=== PATIENT | female | born 1945 | race Caucasian/White ===

== ENCOUNTER → 2019-01-17 09:46 | Outpatient (CLI) | payer MEDICARE, SELFPAY ==
--- NOTE | 2019-01-17 11:38 | NURSING ---
Patient had reached out to this nurse for assistance in getting ostomy supplies ordered. Pt unable to explain a lot of her history. states she was just discharged from [facility] approx a week and a half ago. patient has a new ileostomy for s/p some sort of debulking surgery for ovarian cancer. patient was not sent home with a prescription for supplies or any extra supplies. [facility]'s home health has been seeing patient and were unsure of that supplies to order. Had called this nurse for recommendations. let the home health nurse know that the patient's stoma and peristomal skin will need assessed prior to deciding on the appliances. Pt to room. removed ostomy appliance. peristomal skin is intact, just slightly pink. stoma is well budded, dark pink, and moist. measures approx 1 in diameter. stoma does sit in a crease of the abdomen and is near the midline surgical incision that still has james in place. Pt states she is scheduled to see the surgeon next week and will have the james removed at that time. patient is very thin with a few small abdominal creases. would recommend a flat one piece appliance at this time. patient states she wants something as simple as possible. since patient is just 2 weeks post op, would not recommend a pre cut appliance at this time. can possibly order this for the patient after 8 weeks post. explained this to the patient and . recommended [employer] appliance #[id number]. This is a one piece flat appliance with Lock n' Roll closure. Patient very appreciative of recommendations and care. script written out for home health. will reach out to them to see if they prefer this nurse calls [facility] to order. will need a signing physician. Pt states her family doctor (Dr Rhodes in [place]) would most likely sign for the supplies. Pt aware to call for further needs.
== END ==
PROVIDERS: Family Provider Family Medicine; PCP Family Medicine
DX: Z43.2 Encounter for attention to ileostomy (principal)
CPT/HCPCS: 99211; G0463

== ENCOUNTER 2019-02-04 06:55 | Inpatient (IN) | payer MEDICARE, SELFPAY ==
[2019-01-30 09:13] VITALS: BMI 18.6
[2019-02-04] VITALS (9 sets, daily range): BP systolic 91–110; BP diastolic 59–73; PULSE 77–101; RESP 16–20; TEMP 36.4–36.6; O2SAT 99–100; BMI 17.4; BMI 16.8
--- NOTE | 2019-02-04 06:56 | EKG12_ITS ---
Test Reason : GENERAL ILLNESS Blood Pressure : / mmHG Vent. Rate : 101 BPM Atrial Rate : 101 BPM P-R Int : 130 ms QRS Dur : 080 ms QT Int : 354 ms P-R-T Axes : 077 081 080 degrees QTc Int : 459 ms Sinus tachycardia Early repolarization Otherwise normal ECG Confirmed by MIKALA DUNBAR ([id number]), senior technical editor LILI ONEAL ([id number]) on 02/08/2019 10:58:10 AM Referred By: Confirmed By:MIKALA DUNBAR
--- NOTE | 2019-02-04 07:05 | ED.DCSUM_ITS ---
History of Present Illness Chief Complaint: Abd Pain Detail of Chief Complaint: Per patient and generalized weakness Informant: Patient, Significant Other Onset: Weeks Context: Sudden Onset Timing: Continuous Quality: Generalized weakness Location: Malaise, no energy, no appetite and weight loss Current Severity: Moderate Maximum Severity: Moderate Worsened by: Surgery beginning of December Relieved by: Nothing Associated Symptoms: Generalized weakness with weight loss 115 to 94 pounds Narrative: Patient is an elderly woman who underwent surgery at [facility]. Was referred to oncology at the [facility]. nor patient are able to elaborate why. states tumors were precancerous. Patient complains of generalized weakness, malaise, weight loss. She reports no appetite. She has had abdominal pain since surgery. Patient had surgery first week of December. She denies fever, chills or night sweats. She denies ocular, visual auditory symptoms. She does report thirst and dry mouth. She does report left-sided chest pain. She denies rash. There is no history of trauma. Patient denies shortness of breath, dyspnea on exertion, orthopnea or PND. Abdominal pain is generalized. Unable to localize area. Ileostomy noted. She reports no decrease in output. She has not noted blood or black material in the ileostomy bag. She denies dysuria, frequency, urgency or hematuria. - Past Medical History (1) Colon cancer Status: Acute (2) Omental metastasis Status: Acute (3) Ovarian metastasis Status: Acute (4) Peritoneal metastases Status: Acute (5) Anemia Status: Chronic Past Medical History - Allergies and Home Meds Allergies/Adverse Reactions: Allergies Penicillins Adverse Reaction (Intermediate, Verified 02/04/19 06:59) Rash ITCHY Primary Care Physician: Zarina Rhodes [Primary Care Provider] - Prior records reviewed: Yes Surgical History: - - Colostomy with Carmen pouch and ileostomy first week of December Lives: Spouse/ Significant Other Smoking Status: Never smoker Alcohol: None Review of Systems General: Reports: Malaise, Weight loss. Denies: Chills, Fever, Subjective, Sweats, - Eyes: Denies: Visual changes - bilaterally, Diplopia ENT: Denies: Rhinorrhea, Sore throat Cardiovascular: Denies: Chest pain, Palpitations Respiratory: Denies: Dyspnea, Cough, Dyspnea on exertion Gastrointestinal: Reports: Abdominal pain. Denies: Nausea, Vomiting, Diarrhea, Constipation, Melena, Hematochezia, -, - Genitourinary: Denies: Dysuria, Hematuria, Frequency Musculoskeletal: Denies: Back pain, Extremity Pain Skin: Denies: Rash, Wounds Neurological: Reports: Weakness. Denies: Headache, Parasthesia, Numbness, -, - Endocrine: Denies: Polyuria, Polydipsia Hematologic: Denies: Easy bruising, Easy bleeding Physical Exam Vital Signs/Narrative: Vital Signs Temp Pulse Resp BP Pulse Ox 02/04/19 06:56 97.5 F L 101 H 20 H 107/73 99 Inital Vital Signs reviewed: Yes General: Well developed, Cachectic, No Acute Distress Head: Normocephalic, Atraumatic Eyes: Perrl, EOMI. Negative for: Pale conjunctiva, Scleral icterus ENT: No rhinorrhea, Dry mucous membranes Neck: Supple, Nontender, No lymphadenopathy, No JVD, - Cardiovascular: Regular rhythm, No murmurs, Normal S1, Normal S2, Tachycardia Respiratory: No distress, CTA bilaterally, Chest tenderness - Anterior left chest. No rash noted to suggest herpes varicella-zoster. Abdomen: Soft, Nondistended, Normal bowel sounds, No masses, Tender. Negative for: Guarding, Rebound tenderness Back: Nontender, Normal Inspection. Negative for: CVA tenderness Extremities: Nontender, No edema Skin: No rash, Pallor. Negative for: Cyanosis, Jaundice Neurological: Alert, Oriented x3, Cranial nerves II-XII grossly intact, Normal Strength, Normal Sensation Psychological: Depressed Diagnostic/Tx/Re-eval Laboratory Results 02/04/19 02/04/19 07:05 07:05 WBC 9.7 RBC 5.84 H Hgb 17.1 H Hct 48.9 H MCV 83.7 MCH 29.3 MCHC 35.0 RDW 16.9 H RDW Differential 51.5 H Plt Count 451 H MPV 10.8 Immature Gran % (Auto) 0.400 Neut % (Auto) 82.0 H Lymph % (Auto) 11.2 L [place] % (Auto) 6.1 Eos % (Auto) 0.2 Baso % (Auto) 0.1 Absolute Neuts (auto) 7.9 H Absolute Lymphs (auto) 1.08 Total Counted Not Reportable Sodium 124 L Potassium 4.5 Chloride 84 L Carbon Dioxide 23.0 Anion Gap 17 H BUN 109 H* Creatinine 1.62 H Estim Creat Clear Calc 22.48 Est GFR (MDRD) Af Amer 40 L Est GFR (MDRD) Non-Af 33 L BUN/Creatinine Ratio 67.3 H Glucose 222 H Calcium 9.6 - Rhythm Strip Rhythm Strip: Sinus Rhythm Rate: 103 Ectopy: None - EKG Initial EKG Interpretation: Sinus Tachycardia - Ventricular rate 101. MA interval, cures duration and QT interval are normal. [place] normal. There is evidence of early repolarization. - Medical Decision Making Prehospital EKG revealed artifact and difficult to determine if there is or is not ST elevation. Therefore, an EKG was ordered. Patient appears pale will obtain CBC to assess for anemia as well as white count and differential. Because of poor appetite with stomach and weight loss will obtain electric panel. Also will review prior records since prior documented history is significant for cancer which patient and denied. Patient's BUN has increased significantly since January 30. Ratio is greater than 50-1. Hemoglobin has increased from 15 1 to greater than 17 which would suggest the elevated BUN/creatinine ratio is secondary to prerenal condition and not GI blood loss. Oncology note was reviewed and patient with diagnosis of colon cancer who underwent debulking procedure and ileocolectomy at [facility]. Patient sodium has decreased to 124. Since patient is clinically dehydrated with hyponatremia need to evaluate for SIADH. Additional blood work was ordered and will page hospitalist for admission. ED Disposition - Plan for ED Patient: Disposition: Acute Care Hospital [facility] Diagnosis: Prerenal azotemia, ESRD (end stage renal disease), Severe dehydration, History of colon cancer, no staging, Hyponatremia with decreased serum osmolality Referrals: Zarina Rhodes [Primary Care Provider] -
[2019-02-04] MEDS: Morphine 4 MG/ML Syringe IV (07:06)
[2019-02-04] MEDS: 0.9% Normal Saline 1,000 ML 1000 ML IV (07:06)
[2019-02-04] MEDS: Ondansetron 4 MG/2 ML Vial IV (07:06)
[2019-02-04 07:14] LABS: Absolute Lymphocyte Count 1.08 X10^3/ul (0.83-4.51); Absolute Neutrophil Count 7.9 X10^3/uL (2.0-7.7); Basophil# 0.01 X10^3/uL; Basophil% 0.1 % (0-1); Eosinophil# 0.02 X10^3/uL; Eosinophils% 0.2 % (0-5); Hematocrit 48.9 % (37-47); Hemoglobin 17.1 g/dl (12.0-15.0); Lymphocyte # 1.08 X10^3/ul (4.0); Lymphocyte % 11.2 % (19-41); Mean Corpuscular Hgb 29.3 pg (27.0-32.0); Mean Corpuscular Volume 83.7 fL (81-99); Mean Platelet Vol. 10.8 fl (6.2-12.0); Monocyte# 0.59 X10^3/uL; Monocyte% 6.1 % (0-10); Neutrophil # 7.94 X10^3/uL (2.7-7.7); Platelet Count 451 K/mm3 (150-450); RBC Distribution Width CV 16.9 % (11.6-14.6); RBC Distribution Width SD 51.5 fl (35.1-43.9); Red Blood Count 5.84 M/mm3 (4.2-5.4); White Blood Count 9.7 K/mm3 (4.4-11.0)
[2019-02-04 07:15] LABS: POSITIVE COUNT NO; POSITIVE DIFFERENTIAL NO; POSITIVE MORPHOLOGY NO
[2019-02-04 07:27] LABS: Anion Gap 17 (5-15); BUN 109 mg/dL (7-18); BUN/Creat Ratio 67.3 RATIO (10-20); Calcium,Total 9.6 mg/dL (8.5-10.1); Chloride 84 mmol/L (98-107); Creatinine, Serum 1.62 mg/dL (0.55-1.02); EST Glomerular Filtration Rate 33 mL/min (>60); Est Glom Filt Rate - Afr Amer 40 mL/min (>60); Estimated Creatinine Clearance 22.48 ml/min; Glucose 222 mg/dL (74-106); Potassium 4.5 mmol/L (3.5-5.1); Sodium Level 124 mmol/L (136-145)
--- NOTE | 2019-02-04 09:30 | HP.PCM_ITS ---
History of Present Illness Date of Admission: 02/04/19 Chief Complaint: WEAKNESS The patient is a 73 year old F with a past medical history significant for recently diagnosed pelvic mass for which she had debulking surgery with ileo- colectomy and primary bowel anastomosis as well as diverting loop ileostomy and bilateral salpingo-oophorectomy on January 04, [address] [facility] in [place]. 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 She was subsequently discharged home and followed up with oncology on 01/30/2019. Per oncology note, she was to follow-up again for reassessment of her functional and nutritional status and if there was improvement consider her for systemic palliative chemotherapy as cancer is incurable. Patient has been feeling very weak at home and this gradually progressed until today when her was not even able to help her get out of bed. She has had associated decreased oral intake and severe nausea. She says she felt dehydrated because she had not been drinking and eating well. She therefore came into the ED today for further evaluation. On admission, sodium was 124 and creatinine was 1.62 with anion gap of 17, BUN was also elevated at 109. CBC showed hemoglobin of 17.1 and platelets of 451 with white cell count of 9.7. Initially she was tachycardic but this resolved with IV fluid administration. She has been admitted to be managed for severe debility due to metastatic colon cancer, dehydration, hyponatremia likely hypovolemic hypotonic hyponatremia from decreased intake and MARJORIE. [] Past Medical History Past Medical History (Chronic Problems): Chronic Problems (Last Reviewed 01/30/19 @ 09:08 by Tamra Beltran) Anemia (Chronic) Medical History: Medical History (Last Reviewed 01/30/19 @ 09:08 by Tamra Beltran) Colon cancer C18.9 Depression F32.9 Ileostomy present Z93.2 Irritable bowel syndrome (IBS) K58.9 Allergies Penicillins Adverse Reaction (Intermediate, Verified 02/04/19 06:59) Rash ITCHY Home Medications: Ambulatory Orders Medication Instructions Recorded Ibuprofen [Wal-Profen] 400 mg PO Q6H PRN PRN 01/30/19 Ondansetron [Zofran] 8 mg PO Q8H PRN PRN 20 Days #60 01/30/19 tablet Surgical History: Surgical History (Last Reviewed 01/30/19 @ 09:08 by Tamra Beltran) History of tonsillectomy Z90.89 Status post ileostomy Z93.2 01-04-19 exploratory laparotomy, tumor debulking, ileocecetomy with resection of large mass, primary bowel anastomosis, mobilization of hepatic flexure, bilateral salpingo-oophorectomy, diverting loop ileostomy Surgical History: - - Colostomy with Carmen pouch and ileostomy first week of December Psychiatric History: No pertinent psych hx [employer] History: No pertinent [employer] history Lives: Spouse/ Significant Other Smoking Status: Never smoker Alcohol: None - *Family History Maternal Family History: Family History (Last Updated 01/30/19 @ 09:52 by Tamra Beltran) Other No pertinent family history History Items: No pertinent history Paternal Family History: Family History (Last Updated 01/30/19 @ 09:52 by Tamra Beltran) Other No pertinent family history History Items: No pertinent history Review of Systems Constitutional: Reports: Anorexia, Malaise, Weakness, Weight Change, Fatigue. Denies: Chills, Fever, Night Sweats Eyes: Denies: Blurred vision HEENT: Denies: Head Aches, Sinus Congestion, Sinus Drainage Cardiovascular: Denies: Chest Pain, Palpitations Respiratory: Denies: Cough, Shortness of breath at rest, Sputum production Gastrointestinal: Reports: Nausea, Vomiting, - - has ileostomy. Denies: Abdominal Pain, Constipation, Diarrhea Genitourinary: Denies: Dysuria Musculoskeletal: Denies: Joint Pain, Joint Tenderness Skin: Denies: Rash, Wounds Neurological: Denies: Numbness, Tingling, Focal weakness Psychiatric: Denies: Anxiety, Depression, Homicidal Ideations, Suicidal Ideations Hematologic/ Lymphatic: Denies: Easy Bruising, Easy Bleeding VTE Information - Inpt Only VTE Present on Admission: No VTE Pharm Prophylaxis ordered?: Yes Patient Problems: Active and Suspected Problems (Last Reviewed 01/30/19 @ 09:08 by Tamra Beltran) Prerenal azotemia (Acute) ESRD (end stage renal disease) (Acute) Severe dehydration (Acute) History of colon cancer, no staging (Acute) Hyponatremia with decreased serum osmolality (Acute) - Physical Exam General: Alert, Oriented x3, Cooperative, No apparent distress HEENT: Atraumatic, PERRLA, EOMI, Normocephalic Oral: Moist Mucosa Neck: Supple, No JVD, Negative Carotid Bruits Lungs: Clear to auscultation, Normal air movement, No rhonchi, No wheeze, No rales Cardiovascular: Regular rate, Regular Rhythm, Normal S1, Normal S2, No murmurs Abdomen: Bowel Sounds Present, Soft, Non Tender, Non-Distended, No Hepato- splenomegaly Extremities: No clubbing, No cyanosis, No edema, Capillary Refill Less than 3 Seconds Skin: No rashes, No breakdown Musculoskeletal: No Tenderness to Palpation of Joints or Extremities Lymphatic: No Cervical, Supraclavicular, or Inguinal Adenopathy Neurological: Cranial nerves II-XII grossly intact, Neuro grossly intact, Motor Exam 5/5 strength throughout Psych/Mental Status: Normal Affect, Appropriate, Alert and oriented to time, place, person, mood and affect Vital Signs Temp Pulse Resp BP Pulse Ox 97.5 F L 101 H 20 H 107/73 99 02/04/19 06:56 02/04/19 06:56 02/04/19 06:56 02/04/19 06:56 02/04/19 06:56 Oxygen Flow Rate (L/min) 2 Oxygen Delivery Method Nasal Cannula Weight: 98 lb 8.746 oz Body Mass Index (BMI) 17.4 Laboratory Tests Past 24 Hrs 02/04/19 02/04/19 02/04/19 07:05 07:05 08:20 WBC 9.7 RBC 5.84 H Hgb 17.1 H Hct 48.9 H MCV 83.7 MCH 29.3 MCHC 35.0 RDW 16.9 H RDW Differential 51.5 H Plt Count 451 H MPV 10.8 Immature Gran % (Auto) 0.400 Neut % (Auto) 82.0 H Lymph % (Auto) 11.2 L [place] % (Auto) 6.1 Eos % (Auto) 0.2 Baso % (Auto) 0.1 Absolute Neuts (auto) 7.9 H Absolute Lymphs (auto) 1.08 Total Counted Not Reportable Sodium 124 L Potassium 4.5 Chloride 84 L Carbon Dioxide 23.0 Anion Gap 17 H BUN 109 H* Creatinine 1.62 H Estim Creat Clear Calc 22.48 Est GFR (MDRD) Af Amer 40 L Est GFR (MDRD) Non-Af 33 L BUN/Creatinine Ratio 67.3 H Glucose 222 H Calcium 9.6 Cortisol Pending Assessment/Plan All Active Problems (Last Reviewed 01/30/19 @ 09:08 by Tamra Beltran) Prerenal azotemia (Acute) ESRD (end stage renal disease) (Acute) Severe dehydration (Acute) History of colon cancer, no staging (Acute) Hyponatremia with decreased serum osmolality (Acute) Colon cancer (Acute) Peritoneal metastases (Acute) Ovarian metastasis (Acute) Omental metastasis (Acute) 73 y/o female admitted with a complaint of nausea and vomiting as well as severe weakness 1. Acute hyponatremia, likely acute hypovolemic hypotonic hyponatremia * likely from dehydration and decreased intake * Na is 124 * check serum osmolality * give IV normal saline at 150cc/hr, with goal of correcting sodium by 6-6mmol/L within the next 24hours * 2. MARJORIE on CKD * CR is 1.62, with BUN of 109 * BUn/Cr ratio is 67.3, indicating this is likely a pre-renal cause from dehydration * hydrate with IVF and monitor; if kidney function doesnt improve, will consider more extensive workup * 3. Severe debility due to metastatic colon cancer * patient very frail and debilitated * consult PT/OT * fall precautions * 4. 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 * per oncology notes, has very poor perfomance status; to be reassessed to for palliative chemotherapy once her nutrition status improves * will consult oncology * 5. Severe malnutrition due to metastatic cancer * BMI is ~ 16, with patient weighing only 94 pounds * give Ensure supplements TID * consult nutrition * DVT prophylaxis: lovenox Code status: Full code * Patient counseled extensively about different types of CODE STATUS including full code, DNR CCA and DNR CCA. Patient elects to be full code. Total [id number] time 16 * minutes. Code Visit Inpatient E&M: 77618 Init Hosp L3 Procedures: 62295 Advncd Care Plan 30 Min
[2019-02-04] MEDS: 0.9% Normal Saline 1,000 ML 150 ML IV ×2 (09:47→17:33)
--- NOTE | 2019-02-04 09:50 | NURSING ---
Pt is known to this nurse. pt had come in as an outpatient to get assistance with ostomy supplies at home. Pt states she is doing well with the supplies that were ordered. appliance is intact. states was just changed on Monday. to bring in patient's supplies since she prefers them over what we have here. incision is healed to mid abdomen with a few small scabbed areas. will monitor for needs.
[2019-02-04] MEDS: Enoxaparin 30 MG/0.3 ML Syringe SC (10:10)
[2019-02-04] MEDS: Ensure Clear 120 ML Liquid PO ×2 (11:11→17:32)
[2019-02-04 12:56] LABS: AST(SGOT) 56 U/L (15-37); Alanine Aminotransfer ALT/SGPT 117 U/L (13-56); Albumin, Serum 4.1 g/dL (3.2-5.0); Alkaline Phosphatase 139 U/L (45-117); Bilirubin, Direct 0.31 mg/dL (0.00-0.30); Protein, Total 8.1 g/dL (6.4-8.2)
--- NOTE | 2019-02-04 13:07 | US_ITS ---
STUDY: ABDOMINAL ULTRASOUND - RIGHT UPPER QUADRANT REASON FOR VISIT: Female, 73 years old. Jaundice history of colon cancer TECHNIQUE: Ultrasound evaluation of the right upper quadrant was performed with real-time and static khan-scale imaging. TECHNICAL QUALITY: Adequate. COMPARISON: None. FINDINGS: Liver: The liver measures 13 cm. There is normal echogenicity of the liver. The bile ducts are within normal limits. There is hepatic color flow. The direction of portal flow is hepatopetal. There is a cyst in the left hepatic lobe measuring 1.0 cm. There is a cyst measuring 7.1 x 7 x 7.2 cm which appears to have fairly well-circumscribed borders. Gallbladder: The patient is status post cholecystectomy. Common Bile Duct (C.B.D.): The common bile duct visualized. Pancreas: Normal size of the head, body of the pancreas. There is normal echogenicity of the pancreas. There is no demonstrated pancreatic mass or cyst. Tail the pancreas is not well-visualized. Right Kidney: Normal size of the right kidney. The right kidney measures 10.1 x 4.1 x 4.0 cm. Normal renal cortex. The right cortex measures 1.0 cm. There is no demonstrated renal mass or cyst. There is no right hydronephrosis. There is a calcification in the right kidney measuring 5.8 mm. There is no visualized hydronephrosis. US/Liver IMPRESSION: Indeterminate well-circumscribed thin-walled appearing hepatic cyst the largest of which measures 7.2 x 7.8 x 7.2 cm. Recommend follow-up dedicated CT scan of the abdomen and pelvis when appropriate with a liver mass protocol. Nonobstructing right renal stone or stones. No evidence of hydronephrosis. Limited study the common duct is not well-visualized on this study. The gallbladder is been removed. Electronically Signed: Susan Botello MD at 17:26 EDT Tel , Service support ,
--- NOTE | 2019-02-04 15:37 | CON.PCM_ITS ---
- Problem List (1) Colon cancer Status: Acute Comment: Stage IV (2) Peritoneal metastases Status: Acute (3) Ovarian metastasis Status: Acute (4) Omental metastasis Status: Acute (5) MARJORIE (acute kidney injury) Status: Acute (6) Weight loss Status: Acute (7) Pressure sore Status: Acute (8) Jaundice Status: Acute (9) Severe dehydration Status: Acute (10) Hyponatremia with decreased serum osmolality Status: Acute Consult Referring Physician: Hospitalist service Consult Results: Metastatic colon cancer Subjective Date of Service:: 02/04/19 Chief Complaint: ABD PAIN, WT LOSS History of Present Illness: Patient is a 73-year-old female who had intermittent bouts of abdominal pain for almost 1 year before she presented to an [place] emergency room on December 31, 2018 with a palpable abdominal mass. She was transferred to [facility] where a CT scan of the abdomen revealed a complex pelvic mass initially thought to be ovarian. CT scan of the abdomen did not report liver metastases and a CT of the chest did not report lung metastases. She had an elevated CEA. On January 04, 2019 she underwent an exploratory laparotomy with tumor debulking, ileo-colectomy with resection of a large mass, primary bowel anastomosis, diverting loop ileostomy and bilateral salpingo-oophorectomy by Dr. Macias. 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 Macroscopic tumor perforation was present, histologic grade 3 with tumor transmurally invasive through muscle and up to serosa, margins were free, lymphovascular invasion was focally present, no metastases were identified and 23 dissected lymph nodes. MSI/MMR are pending. The course of that 1 year she lost 30 pounds of weight. She was then discharged home, reports she did well in the first 2 to 3 weeks but then had a steady downhill decline with increasing weakness, anorexia, nausea, abdominal pain, she became increasingly and active spending most of her day in bed and developed a pressure sore over the sacrum. She was seen by me on January 30, 2019, was too ill to start any active anticancer treatment and multiple referrals were made that were scheduled for this week and attempt to improve her functional status to allow safe administration of palliative chemotherapy (refer to palliative medicine, wound care service, and nutrition service). Over the weekend she continued to decline and this morning her was not able to help her out of bed and she was brought to the emergency room. Past Medical History: Chronic Problems (Last Reviewed 01/30/19 @ 09:08 by Tamra Beltran) Anemia (Chronic) Past Medical/Surgical History: Past Medical History - Most Recent Inpatient Visit Past Medical History Start: 02/04/19 09:08 Text: Status: Complete Freq: ONCE Protocol: Document 02/04/19 09:08 JATIN (Rec: 02/04/19 09:59 JATIN [id number]) BMI Required to complete PMH What is Patient's BMI 16.8 Past Medical History Unable History Recalled No Query Text:Pt Unable/Family Not Present Neurologic Medical History Hx Stroke/TIA No Hx Dementia/Alzheimer's No Hx Parkinson's Disease No Hx Seizures No Hx Multiple Sclerosis No Hx Migraines Yes: BEFORE MENOPAUSE Cardiac Medical History VTE Present on Admission No Hx of Deep Vein Thrombosis/VTE/PE No Hx Hypertension No Hx Chest Pain/Angina No Hx Heart Attack No Hx Cardiac Surgery/Stents/Etc. No Hx Heart Failure No Hx Pacemaker/AICD No Hx Irregular Heartbeat and/or Afib No Hx Anticoagulant Therapy No Query Text:(Coumadin, Aspirin, Plavix, Xarelto, etc.) Hx Pain in Legs when Walking/Leg Cramps No Respiratory Medical History Hx COPD No Hx Emphysema No Hx Smoking No Smoking Status Never smoker Hx Smoking Exposure No Hx Tobacco Use in last 12 months No Hx of Pipe Smoking No Hx of Cigar Smoking No Hx Sleep Apnea No CPAP No Do you snore loudly (louder than talking No or can be heard through closed doors)? Do you often feel tired/ fatigued/ No sleepy during daytime? Has anyone observed you stop breathing No during sleep? STOP Results Negative GI Medical History Hx Ulcer No Hx Hepatitis No Hx Cirrhosis No Hx GI Bleed No Hx Unplanned Weight Loss No Genitourinary Medical History Indwelling Catheter in Place on Arrival/ No Admission Hx Renal Disease No Hx Dialysis No Musculoskeletal History Hx Arthritis No Hx Rheumatoid Arthritis No Endocrine Medical History Hx Diabetes No Hx Thyroid Disease No Hematologic Medical History Hx of Blood Transfusion No Hx of Transfusion in last 3 Months No Ever experience any problems with No transfusion(s)? Hx of Preganancy in last 3 Months N/A Nurse Filling Out Transfusion & JMAIBACH Questions: Date: 02/04/19 Time: 09:58 Psycho/Social Medical History Hx Depression No Hx Anxiety No Hx Behavior Disorder No Hx Alcohol Use No Hx Substance Use No Other Medical History Hx Blood Disorders No Hx Anemia No Hx Cancer No Hx Drug Resistant Organism No Wound/Pressure Injury Present on Arrival Yes: HEALING ABOVE COCCYX /Admission Query Text:If yes, chart assessment in Shift/Clinical Findings Central Line/PICC/VAD Present on Arrival No /Admission Antibiotics within last 7 days? No Methicillin Resistant Staphylococcus aureus Screening Active MRSA No Risk for Readmission Patient is eligible for Call Back N Past Medical History (Last Reviewed 01/30/19 @ 09:08 by Tamra Beltran) Colon cancer (Acute) Depression (Acute) Ileostomy present (Acute) Irritable bowel syndrome (IBS) (Acute) Past Surgical History (Last Reviewed 01/30/19 @ 09:08 by Tamra Beltran) History of tonsillectomy (Acute) Status post ileostomy (Acute) Maternal Family History: Family History (Last Updated 01/30/19 @ 09:52 by Tamra Beltran) Other No pertinent family history Family History: No pertinent history Paternal Family History: Family History (Last Updated 01/30/19 @ 09:52 by Tamra Beltran) Other No pertinent family history Family History: No pertinent history - Social History Lives: Spouse/ Significant Other Smoking Status: Never smoker Alcohol: None Allergies/Adverse Reactions: Allergy/AdvReac Type Severity Reaction Status Date / Time Penicillins AdvReac Intermediate Rash Verified 02/04/19 06:59 Review of Systems Constitutional:: Reports: Weakness, Fatigue, Weight loss, Appetite change, Hot or cold intolerance. Denies: Fever, Sweats, Chills Cardiovascular:: Denies: Chest pain, Palpitations, Dyspnea on exertion, Orthopnea, PND, Shortness of breath Respiratory: Denies: Cough, Hemoptysis, Shortness of Breath, Wheezing Gastrointestinal:: Reports: Abdominal pain - Discomfort, Nausea, Vomiting, Constipation, - - Has an ileostomy that drains. Denies: Diarrhea, Hematochezia Genitourinary: Denies: Dysuria, Hematuria, 15, Flank pain Musculoskeletal:: Denies: Back pain, Myalgia, Arthralgia Skin: Reports: Wounds - Of her tailbone. Denies: Rash, Skin Changes Neurological:: Denies: Headache, Dizziness, Visual changes, Tinnitus, Hearing loss Psychiatric: Denies: Anxiety, Depression, Homicidal Ideations, Suicidal Ideations Vital Signs Height 5 ft 3 in Weight: 42.9 kg Weight in Pounds 94.6 lbs Pulse Ox 100 Temperature 97.9 F Pulse Rate 82 Respiratory Rate 16 Blood Pressure 108/64 Blood Pressure Position Semi-Fowlers - Physical Exam General: Alert, Oriented x3, - - Cachectic, ECOG 4 HEENT: Atraumatic, PERRLA, EOMI, Normocephalic Oropharynx:: Dry mucosa Neck:: Supple, Trachea midline. Negative for: JVD, bilateral Cardiac:: Regular rate, Regular rhythm, Normal S1, Normal S2. Negative for: Murmur Lungs: Clear to auscultation, Excusion symmetrical. Negative for: Rhonchi, Wheezes Abdomen:: Soft, Non-tender, - - Ileostomy, no peritonism. Negative for: Hepatosplenomegaly Extremities:: Negative for: Cyanosis, Edema Neurological: Neuro grossly intact Skin:: - - A sacral pressure sore noted January 30 is now covered with dressing. Negative for: Rash, Petechiae, Ecchymosis Psychiatric:: Appropriate affect, Euthymic Lymphatics:: Negative for: Cervical lymphadenopathy, Supraclavicular lymphadenopathy Laboratory Data: Laboratory Tests 02/04/19 02/04/19 02/04/19 Range/Units 08:20 07:05 07:05 WBC (4.4-11.0) K/mm3 RBC (4.2-5.4) M/mm3 Hgb (12.0-15.0) g/dl Hct (37-47) % MCV (81-99) fL MCH (27.0-32.0) pg MCHC (32-36) g/gl RDW (11.6-14.6) % RDW Differential (35.1-43.9) fl Plt Count (150-450) K/mm3 MPV (6.2-12.0) fl Immature Gran % (Auto) (0.0-0.9) % Neut % (Auto) (47-70) % Lymph % (Auto) (19-41) % Burnett % (Auto) (0-10) % Eos % (Auto) (0-5) % Baso % (Auto) (0-1) % Absolute Neuts (auto) (2.0-7.7) X10^3/uL Absolute Lymphs (auto) (0.83-4.51) X10^3/ul Total Counted Sodium 124 L (136-145) mmol/L Potassium 4.5 (3.5-5.1) mmol/L Chloride 84 L (98-107) mmol/L Carbon Dioxide 23.0 (21.0-32.0) mmol/L Anion Gap 17 H (5-15) BUN 109 H* (7-18) mg/dL Creatinine 1.62 H (0.55-1.02) mg/dL Estim Creat Clear Calc 22.48 ml/min Est GFR (MDRD) Af Amer 40 L (>60) mL/min Est GFR (MDRD) Non-Af 33 L (>60) mL/min BUN/Creatinine Ratio 67.3 H (10-20) RATIO Glucose 222 H (74-106) mg/dL Calcium 9.6 (8.5-10.1) mg/dL Total Bilirubin 2.20 H (0.20-1.00) mg/dL Direct Bilirubin 0.31 H (0.00-0.30) mg/dL AST 56 H (15-37) U/L ALT 117 H (13-56) U/L Alkaline Phosphatase 139 H (45-117) U/L Total Protein 8.1 (6.4-8.2) g/dL Albumin 4.1 (3.2-5.0) g/dL Globulin 4.0 (2.2-4.2) g/dL Cortisol 70.70 H (3.09-22.40) ug/dL 02/04/19 Range/Units 07:05 WBC 9.7 (4.4-11.0) K/mm3 RBC 5.84 H (4.2-5.4) M/mm3 Hgb 17.1 H (12.0-15.0) g/dl Hct 48.9 H (37-47) % MCV 83.7 (81-99) fL MCH 29.3 (27.0-32.0) pg MCHC 35.0 (32-36) g/gl RDW 16.9 H (11.6-14.6) % RDW Differential 51.5 H (35.1-43.9) fl Plt Count 451 H (150-450) K/mm3 MPV 10.8 (6.2-12.0) fl Immature Gran % (Auto) 0.400 (0.0-0.9) % Neut % (Auto) 82.0 H (47-70) % Lymph % (Auto) 11.2 L (19-41) % Burnett % (Auto) 6.1 (0-10) % Eos % (Auto) 0.2 (0-5) % Baso % (Auto) 0.1 (0-1) % Absolute Neuts (auto) 7.9 H (2.0-7.7) X10^3/uL Absolute Lymphs (auto) 1.08 (0.83-4.51) X10^3/ul Total Counted Not Reportable Sodium (136-145) mmol/L Potassium (3.5-5.1) mmol/L Chloride (98-107) mmol/L Carbon Dioxide (21.0-32.0) mmol/L Anion Gap (5-15) BUN (7-18) mg/dL Creatinine (0.55-1.02) mg/dL Estim Creat Clear Calc ml/min Est GFR (MDRD) Af Amer (>60) mL/min Est GFR (MDRD) Non-Af (>60) mL/min BUN/Creatinine Ratio (10-20) RATIO Glucose (74-106) mg/dL Calcium (8.5-10.1) mg/dL Total Bilirubin (0.20-1.00) mg/dL Direct Bilirubin (0.00-0.30) mg/dL AST (15-37) U/L ALT (13-56) U/L Alkaline Phosphatase (45-117) U/L Total Protein (6.4-8.2) g/dL Albumin (3.2-5.0) g/dL Globulin (2.2-4.2) g/dL Cortisol (3.09-22.40) ug/dL Assessment and Plan 73-year-old female with stage IV colon cancer (T3, N0, M1B). Patient's illness presented with abdominal pain, non-intentional weight loss, a complex pelvic mass initially thought to be ovarian but after exploratory laparotomy confirmed to be a mucinous adenocarcinoma high-grade she 3 of the right colon involving the terminal ileum with metastases to omentum, abdominal wall and drop metastases to the left ovary. Patient is status post debulking that included a right ileocolectomy, bilateral salpingo-oophorectomy and a diverting loop ileostomy and primary bowel reanastomosis on January 04, 2019. Patient was first seen by medical oncology January 30 almost 1 month postop, cachectic, with a poor performance status, with residual abdominal pain nausea and vomiting, malnutrition and sacral pressure sore. She was hospitalized February 04 with further decline in performance status, acute kidney injury, new onset jaundice. A Doppler ultrasound of the liver was obtained earlier today, report is pending at this time. I met with the patient and her who was present at the bedside explained, again, that her disease is advanced, incurable and inevitably fatal. Unless her performance status, organ function status (liver and kidneys in particular), nutritional status, improve and her pressure sore heal, she is not a candidate for aggressive systemic anticancer therapy whose goal is symptom palliation and a modest survival benefit. I first met with her on January 30 and she has further rapidly declined since. I believe comfort measures only on the home hospice program are most appropriate. However the patient wishes to try to get stronger, well enough to try systemic chemotherapy, if possible. Based on her wish therefore I advise palliative consultation and reassessment for systemic anticancer therapy in the next 2 to 3 weeks in the outpatient office. However if she does not improve I advised that she should be admitted to the home hospice program for maximum comfort measures and terminal care. Jim Horowitz MD [facility], [facility] Divisions of Medical Oncology & Hematology Department of Internal Medicine [facility] [place] [id number] no This note was generated using a voice recognition system software. It may contain incorrect words, spelling, and punctuation that were not noted when reviewing the office note prior to saving. Medications: Medications Added to Medication List This Visit Category Date Time Status 0.9% Normal Saline 1,000 ml Med 02/04/19 09:30 Active IV 150 mls/hr Dextrose 50%-Water [D50w Syringe] Med 02/04/19 09:26 Active See Protocol IV X1 PRN Enoxaparin [Lovenox] Med 02/04/19 10:00 Active 30 mg SC DAILY@1000 Ensure Clear Med 02/04/19 12:00 Active 120 ml PO TIDCM Glucagon Med 02/04/19 09:26 Active 1 mg IM .X1 PRN Ibuprofen [Motrin] Med 02/04/19 09:42 Active 400 mg PO Q6H PRN PRN Ondansetron [Zofran] Med 02/04/19 09:26 Active 4 mg IV Q8H PRN PRN Primary Care Provider: Zarina Rhodes Referring Provider:
[2019-02-04 16:07] LABS: Anion Gap 7 (5-15); BUN 85 mg/dL (7-18); Calcium,Total 7.9 mg/dL (8.5-10.1); Chloride 94 mmol/L (98-107); Creatinine, Serum 1.05 mg/dL (0.55-1.02); EST Glomerular Filtration Rate 55 mL/min (>60); Est Glom Filt Rate - Afr Amer 66 mL/min (>60); Estimated Creatinine Clearance 33.28 ml/min; Glucose 168 mg/dL (74-106); Potassium 3.2 mmol/L (3.5-5.1); Sodium Level 127 mmol/L (136-145)
[2019-02-04 18:27] LABS: Osmolality, Serum 292 mOsm/KG (280-301)
[2019-02-04 21:50] LABS: Urine Sodium 16 mmol/L (Not Establ.)
[2019-02-04 21:52] LABS: Osmolality, Urine 577 mOsm/KG
[2019-02-05] MEDS: 0.9% Normal Saline 1,000 ML 150 ML IV ×2 (00:02→06:45)
[2019-02-05 03:59] VITALS: PULSE 74
[2019-02-05 04:25] VITALS: BP 95/54; PULSE 81; RESP 16; TEMP 36.4; O2SAT 100
[2019-02-05 06:31] LABS: Absolute Lymphocyte Count 1.24 X10^3/ul (0.83-4.51); Absolute Neutrophil Count 3.4 X10^3/uL (2.0-7.7); Basophil# 0.01 X10^3/uL; Basophil% 0.2 % (0-1); Eosinophils% 1.9 % (0-5); Hematocrit 38.3 % (37-47); Hemoglobin 12.7 g/dl (12.0-15.0); Lymphocyte # 1.24 X10^3/ul (4.0); Lymphocyte % 23.4 % (19-41); Mean Corp Hgb Conc 33.2 g/gl (32-36); Mean Corpuscular Hgb 28.2 pg (27.0-32.0); Mean Corpuscular Volume 84.9 fL (81-99); Monocyte# 0.55 X10^3/uL; Monocyte% 10.4 % (0-10); Neutrophil # 3.38 X10^3/uL (2.7-7.7); Neutrophil % 63.9 % (47-70); Platelet Count 296 K/mm3 (150-450); RBC Distribution Width CV 17.1 % (11.6-14.6); RBC Distribution Width SD 52.6 fl (35.1-43.9); Red Blood Count 4.51 M/mm3 (4.2-5.4); White Blood Count 5.3 K/mm3 (4.4-11.0)
[2019-02-05 06:35] LABS: POSITIVE COUNT NO; POSITIVE DIFFERENTIAL NO; POSITIVE MORPHOLOGY NO
[2019-02-05 06:54] LABS: AST(SGOT) 38 U/L (15-37); Alanine Aminotransfer ALT/SGPT 71 U/L (13-56); Albumin, Serum 2.9 g/dL (3.2-5.0); Alkaline Phosphatase 94 U/L (45-117); Anion Gap 8 (5-15); BUN 51 mg/dL (7-18); BUN/Creat Ratio 63.7 RATIO (10-20); Calcium,Total 7.8 mg/dL (8.5-10.1); Chloride 104 mmol/L (98-107); EST Glomerular Filtration Rate 75 mL/min (>60); Est Glom Filt Rate - Afr Amer 91 mL/min (>60); Estimated Creatinine Clearance 43.68 ml/min; Globulin 2.8 g/dL (2.2-4.2); Glucose 110 mg/dL (74-106); Potassium 3.5 mmol/L (3.5-5.1); Protein, Total 5.7 g/dL (6.4-8.2); Sodium Level 137 mmol/L (136-145)
[2019-02-05 07:47] VITALS: PULSE 68
[2019-02-05 08:33] VITALS: BP 112/53; PULSE 70; RESP 16; TEMP 36.8; O2SAT 100
[2019-02-05] MEDS: Enoxaparin 30 MG/0.3 ML Syringe SC (08:38)
--- NOTE | 2019-02-05 10:52 | ONC.PN.INPT ---
- Problem List (1) Colon cancer Status: Acute Comment: Stage IV (2) Peritoneal metastases Status: Acute (3) Ovarian metastasis Status: Acute (4) Omental metastasis Status: Acute (5) MARJORIE (acute kidney injury) Status: Acute (6) Weight loss Status: Acute (7) Pressure sore Status: Acute (8) Jaundice Status: Acute (9) Severe dehydration Status: Acute (10) Hyponatremia with decreased serum osmolality Status: Acute (11) Liver lesion Status: Acute Subjective Date of Service:: 02/05/19 ABD PAIN, WT LOSS Patient is a 73-year-old female who had intermittent bouts of abdominal pain for almost 1 year before she presented to an [place] emergency room on December 31, 2018 with a palpable abdominal mass. She was transferred to [facility] where a CT scan of the abdomen revealed a complex pelvic mass initially thought to be ovarian. CT scan of the abdomen did not report liver metastases and a CT of the chest did not report lung metastases. She had an elevated CEA. On January 04, 2019 she underwent an exploratory laparotomy with tumor debulking, ileo-colectomy with resection of a large mass, primary bowel anastomosis, diverting loop ileostomy and bilateral salpingo-oophorectomy by Dr. Macias. 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 Macroscopic tumor perforation was present, histologic grade 3 with tumor transmurally invasive through muscle and up to serosa, margins were free, lymphovascular invasion was focally present, no metastases were identified and 23 dissected lymph nodes. MSI/MMR are pending. The course of that 1 year she lost 30 pounds of weight. She was then discharged home, reports she did well in the first 2 to 3 weeks but then had a steady downhill decline with increasing weakness, anorexia, nausea, abdominal pain, she became increasingly and active spending most of her day in bed and developed a pressure sore over the sacrum. She was seen by me on January 30, 2019, was too ill to start any active anticancer treatment and multiple referrals were made that were scheduled for this week and attempt to improve her functional status to allow safe administration of palliative chemotherapy (refer to palliative medicine, wound care service, and nutrition service). Over the weekend she continued to decline and this morning her was not able to help her out of bed and she was brought to the emergency room. Overall I feel better today Past Medical History: Chronic Problems (Last Reviewed 01/30/19 @ 09:08 by Tamra Beltran) Anemia (Chronic) Past Medical History - Most Recent Inpatient Visit Past Medical History Start: 02/04/19 09:08 Text: Status: Complete Freq: ONCE Protocol: Document 02/04/19 09:08 JATIN (Rec: 02/04/19 09:59 JATIN [id number]) BMI Required to complete PMH What is Patient's BMI 16.8 Past Medical History Unable History Recalled No Query Text:Pt Unable/Family Not Present Neurologic Medical History Hx Stroke/TIA No Hx Dementia/Alzheimer's No Hx Parkinson's Disease No Hx Seizures No Hx Multiple Sclerosis No Hx Migraines Yes: BEFORE MENOPAUSE Cardiac Medical History VTE Present on Admission No Hx of Deep Vein Thrombosis/VTE/PE No Hx Hypertension No Hx Chest Pain/Angina No Hx Heart Attack No Hx Cardiac Surgery/Stents/Etc. No Hx Heart Failure No Hx Pacemaker/AICD No Hx Irregular Heartbeat and/or Afib No Hx Anticoagulant Therapy No Query Text:(Coumadin, Aspirin, Plavix, Xarelto, etc.) Hx Pain in Legs when Walking/Leg Cramps No Respiratory Medical History Hx COPD No Hx Emphysema No Hx Smoking No Smoking Status Never smoker Hx Smoking Exposure No Hx Tobacco Use in last 12 months No Hx of Pipe Smoking No Hx of Cigar Smoking No Hx Sleep Apnea No CPAP No Do you snore loudly (louder than talking No or can be heard through closed doors)? Do you often feel tired/ fatigued/ No sleepy during daytime? Has anyone observed you stop breathing No during sleep? STOP Results Negative GI Medical History Hx Ulcer No Hx Hepatitis No Hx Cirrhosis No Hx GI Bleed No Hx Unplanned Weight Loss No Genitourinary Medical History Indwelling Catheter in Place on Arrival/ No Admission Hx Renal Disease No Hx Dialysis No Musculoskeletal History Hx Arthritis No Hx Rheumatoid Arthritis No Endocrine Medical History Hx Diabetes No Hx Thyroid Disease No Hematologic Medical History Hx of Blood Transfusion No Hx of Transfusion in last 3 Months No Ever experience any problems with No transfusion(s)? Hx of Preganancy in last 3 Months N/A Nurse Filling Out Transfusion & JMAIBACH Questions: Date: 02/04/19 Time: 09:58 Psycho/Social Medical History Hx Depression No Hx Anxiety No Hx Behavior Disorder No Hx Alcohol Use No Hx Substance Use No Other Medical History Hx Blood Disorders No Hx Anemia No Hx Cancer No Hx Drug Resistant Organism No Wound/Pressure Injury Present on Arrival Yes: HEALING ABOVE COCCYX /Admission Query Text:If yes, chart assessment in Shift/Clinical Findings Central Line/PICC/VAD Present on Arrival No /Admission Antibiotics within last 7 days? No Methicillin Resistant Staphylococcus aureus Screening Active MRSA No Risk for Readmission Patient is eligible for Call Back N Past Medical History (Last Reviewed 01/30/19 @ 09:08 by Tamra Beltran) Colon cancer (Acute) Depression (Acute) Ileostomy present (Acute) Irritable bowel syndrome (IBS) (Acute) Past Surgical History (Last Reviewed 01/30/19 @ 09:08 by Tamra Beltran) History of tonsillectomy (Acute) Status post ileostomy (Acute) Maternal Family History: Family History (Last Updated 01/30/19 @ 09:52 by Tamra Beltran) Other No pertinent family history Family History: No pertinent history Paternal Family History: Family History (Last Updated 01/30/19 @ 09:52 by Tamra Beltran) Other No pertinent family history Family History: No pertinent history - Social History Lives: Spouse/ Significant Other Smoking Status: Never smoker Alcohol: None Review of Systems Constitutional:: Reports: Weakness - Was able to go to the bathroom with a walker, Fatigue, Weight loss, Appetite change. Denies: Fever, Sweats, Chills Cardiovascular:: Denies: Chest pain, Palpitations, Dyspnea on exertion, Orthopnea, PND, Shortness of breath Respiratory: Denies: Cough, Hemoptysis, Shortness of Breath, Wheezing Gastrointestinal:: Reports: Abdominal pain - controlled, Nausea - Let us. Denies: Vomiting, Diarrhea, Constipation, Hematochezia Genitourinary: Denies: Dysuria, Hematuria, 15, Flank pain Musculoskeletal:: Denies: Back pain, Myalgia, Arthralgia Skin: Reports: Wounds - Over the sacrum. Denies: Rash, Skin Changes Neurological:: Denies: Headache, Dizziness, Visual changes, Tinnitus, Hearing loss Psychiatric: Denies: Anxiety, Depression, Homicidal Ideations, Suicidal Ideations Vital Signs Height 5 ft 3 in Weight: 42.9 kg Weight in Pounds 94.6 lbs Pulse Ox 100 Temperature 98.2 F Pulse Rate 70 Respiratory Rate 16 Blood Pressure 112/53 Blood Pressure Position Semi-Fowlers - Physical Exam General: Alert, Oriented x3, No apparent distress, - - Cachectic, ECOG 3-4 Psychiatric:: Euthymic Laboratory Data: Laboratory Tests 02/05/19 02/05/19 02/04/19 Range/Units 05:35 05:35 21:23 WBC 5.3 (4.4-11.0) K/mm3 RBC 4.51 (4.2-5.4) M/mm3 Hgb 12.7 (12.0-15.0) g/dl Hct 38.3 (37-47) % MCV 84.9 (81-99) fL MCH 28.2 (27.0-32.0) pg MCHC 33.2 (32-36) g/gl RDW 17.1 H (11.6-14.6) % RDW Differential 52.6 H (35.1-43.9) fl Plt Count 296 (150-450) K/mm3 MPV 11.0 (6.2-12.0) fl Immature Gran % (Auto) 0.200 (0.0-0.9) % Neut % (Auto) 63.9 (47-70) % Lymph % (Auto) 23.4 (19-41) % [place] % (Auto) 10.4 H (0-10) % Eos % (Auto) 1.9 (0-5) % Baso % (Auto) 0.2 (0-1) % Absolute Neuts (auto) 3.4 (2.0-7.7) X10^3/uL Absolute Lymphs (auto) 1.24 (0.83-4.51) X10^3/ul Total Counted Not Reportable Sodium 137 (136-145) mmol/L Potassium 3.5 (3.5-5.1) mmol/L Chloride 104 (98-107) mmol/L Carbon Dioxide 25.0 (21.0-32.0) mmol/L Anion Gap 8 (5-15) BUN 51 H (7-18) mg/dL Creatinine 0.80 (0.55-1.02) mg/dL Estim Creat Clear Calc 43.68 ml/min Est GFR (MDRD) Af Amer 91 (>60) mL/min Est GFR (MDRD) Non-Af 75 (>60) mL/min BUN/Creatinine Ratio 63.7 H (10-20) RATIO Glucose 110 H (74-106) mg/dL Serum Osmolality (280-301) mOsm/KG Calcium 7.8 L (8.5-10.1) mg/dL Total Bilirubin 1.10 H (0.20-1.00) mg/dL Direct Bilirubin (0.00-0.30) mg/dL AST 38 H (15-37) U/L ALT 71 H (13-56) U/L Alkaline Phosphatase 94 (45-117) U/L Total Protein 5.7 L (6.4-8.2) g/dL Albumin 2.9 L (3.2-5.0) g/dL Globulin 2.8 (2.2-4.2) g/dL Albumin/Globulin Ratio 1.0 (0.9-2.4) RATIO Urine Osmolality (50 - ) mOsm/KG Ur Random Sodium 16 (Not Establ.) mmol/L Urine Creatinine (NO RANGE EST.) mg/dL 02/04/19 02/04/19 02/04/19 Range/Units 21:23 21:23 15:35 WBC (4.4-11.0) K/mm3 RBC (4.2-5.4) M/mm3 Hgb (12.0-15.0) g/dl Hct (37-47) % MCV (81-99) fL MCH (27.0-32.0) pg MCHC (32-36) g/gl RDW (11.6-14.6) % RDW Differential (35.1-43.9) fl Plt Count (150-450) K/mm3 MPV (6.2-12.0) fl Immature Gran % (Auto) (0.0-0.9) % Neut % (Auto) (47-70) % Lymph % (Auto) (19-41) % [place] % (Auto) (0-10) % Eos % (Auto) (0-5) % Baso % (Auto) (0-1) % Absolute Neuts (auto) (2.0-7.7) X10^3/uL Absolute Lymphs (auto) (0.83-4.51) X10^3/ul Total Counted Sodium (136-145) mmol/L Potassium (3.5-5.1) mmol/L Chloride (98-107) mmol/L Carbon Dioxide (21.0-32.0) mmol/L Anion Gap (5-15) BUN (7-18) mg/dL Creatinine (0.55-1.02) mg/dL Estim Creat Clear Calc ml/min Est GFR (MDRD) Af Amer (>60) mL/min Est GFR (MDRD) Non-Af (>60) mL/min BUN/Creatinine Ratio (10-20) RATIO Glucose (74-106) mg/dL Serum Osmolality 292 (280-301) mOsm/KG Calcium (8.5-10.1) mg/dL Total Bilirubin (0.20-1.00) mg/dL Direct Bilirubin (0.00-0.30) mg/dL AST (15-37) U/L ALT (13-56) U/L Alkaline Phosphatase (45-117) U/L Total Protein (6.4-8.2) g/dL Albumin (3.2-5.0) g/dL Globulin (2.2-4.2) g/dL Albumin/Globulin Ratio (0.9-2.4) RATIO Urine Osmolality 577 (50 - ) mOsm/KG Ur Random Sodium (Not Establ.) mmol/L Urine Creatinine 41.90 (NO RANGE EST.) mg/dL 02/04/19 02/04/19 Range/Units 15:35 07:05 WBC (4.4-11.0) K/mm3 RBC (4.2-5.4) M/mm3 Hgb (12.0-15.0) g/dl Hct (37-47) % MCV (81-99) fL MCH (27.0-32.0) pg MCHC (32-36) g/gl RDW (11.6-14.6) % RDW Differential (35.1-43.9) fl Plt Count (150-450) K/mm3 MPV (6.2-12.0) fl Immature Gran % (Auto) (0.0-0.9) % Neut % (Auto) (47-70) % Lymph % (Auto) (19-41) % [place] % (Auto) (0-10) % Eos % (Auto) (0-5) % Baso % (Auto) (0-1) % Absolute Neuts (auto) (2.0-7.7) X10^3/uL Absolute Lymphs (auto) (0.83-4.51) X10^3/ul Total Counted Sodium 127 L (136-145) mmol/L Potassium 3.2 L (3.5-5.1) mmol/L Chloride 94 L (98-107) mmol/L Carbon Dioxide 26.0 (21.0-32.0) mmol/L Anion Gap 7 (5-15) BUN 85 H (7-18) mg/dL Creatinine 1.05 H (0.55-1.02) mg/dL Estim Creat Clear Calc 33.28 ml/min Est GFR (MDRD) Af Amer 66 (>60) mL/min Est GFR (MDRD) Non-Af 55 L (>60) mL/min BUN/Creatinine Ratio 81.0 H (10-20) RATIO Glucose 168 H (74-106) mg/dL Serum Osmolality (280-301) mOsm/KG Calcium 7.9 L (8.5-10.1) mg/dL Total Bilirubin 2.20 H (0.20-1.00) mg/dL Direct Bilirubin 0.31 H (0.00-0.30) mg/dL AST 56 H (15-37) U/L ALT 117 H (13-56) U/L Alkaline Phosphatase 139 H (45-117) U/L Total Protein 8.1 (6.4-8.2) g/dL Albumin 4.1 (3.2-5.0) g/dL Globulin 4.0 (2.2-4.2) g/dL Albumin/Globulin Ratio (0.9-2.4) RATIO Urine Osmolality (50 - ) mOsm/KG Ur Random Sodium (Not Establ.) mmol/L Urine Creatinine (NO RANGE EST.) mg/dL Diagnostic Data: Diagnostic Data Liver Ultrasound 02/04/19 13:07 FINDINGS: Liver: The liver measures 13 cm. There is normal echogenicity of the liver. The bile ducts are within normal limits. There is hepatic color flow. The direction of portal flow is hepatopetal. There is a cyst in the left hepatic lobe measuring 1.0 cm. There is a cyst measuring 7.1 x 7 x 7.2 cm which appears to have fairly well-circumscribed borders. IMPRESSION: Indeterminate well-circumscribed thin-walled appearing hepatic cyst the largest of which measures 7.2 x 7.8 x 7.2 cm. Recommend follow-up dedicated CT scan of the abdomen and pelvis when appropriate with a liver mass protocol. Nonobstructing right renal stone or stones. No evidence of hydronephrosis. Limited study the common duct is not well-visualized on this study. The gallbladder is been removed. Electronically Signed: Susan Botello MD at 17:26 EDT Tel , Service support , Assessment and Plan 73-year-old female with stage IV colon cancer (T3, N0, M1B). Patient's illness presented with abdominal pain, non-intentional weight loss, a complex pelvic mass initially thought to be ovarian but after exploratory laparotomy confirmed to be a mucinous adenocarcinoma high-grade she 3 of the right colon involving the terminal ileum with metastases to omentum, abdominal wall and drop metastases to the left ovary. Patient is status post debulking that included a right ileocolectomy, bilateral salpingo-oophorectomy and a diverting loop ileostomy and primary bowel reanastomosis on January 04, 2019. Patient was first seen by medical oncology January 30 almost 1 month postop, cachectic, with a poor performance status, with residual abdominal pain nausea and vomiting, malnutrition and sacral pressure sore. She was hospitalized February 04 with further decline in performance status, acute kidney injury, new onset jaundice. A Doppler ultrasound of the liver was obtained on February 04, 2019 shows 2 indeterminate hepatic lesions. Plan from the oncology view: 1. Reevaluate in 2 to 3 weeks, if her performance status, organ function (liver and kidneys in particular) improve and her sacral pressure sore heals would consider systemic chemotherapy with a palliative intent plus or minus a modest survival benefit. 2. if her functional and organ function improved to allow treatment further evaluation of the indeterminate liver lesions with a dedicated CT scan of the liver with contrast may be warranted. At this time further evaluation of these lesions is only of academic interest and will not impact plan of care in any way. 3. Patient is being evaluated by the palliative team, PT /OT, and wound service. Patient was seen was her , impression and plan discussed Jim Horowitz MD [employer], [facility] Divisions of Medical Oncology & Hematology Department of Internal Medicine [place] [phone] no This note was generated using a voice recognition system software. It may contain incorrect words, spelling, and punctuation that were not noted when reviewing the office note prior to saving. Primary Care Provider: Zarina Rhodes Referring Provider:
--- NOTE | 2019-02-05 11:14 | NURSING ---
The ileostomy appliance had leaked this am. applied was changed using patient's home appliance as requested. peristomal skin is intact. stoma is beefy red and well budded, but does sit within the crease of the abdomen which makes pouching somewhat difficult. will monitor. pt denies further needs at this time.
--- NOTE | 2019-02-05 11:24 | DS.PCM_ITS ---
Discharge Date and Diagnosis - Problem List Patient Problems: Active and Suspected Problems (Last Reviewed 01/30/19 @ 09:08 by Tamra Beltran) Liver lesion (Acute) MARJORIE (acute kidney injury) (Acute) Weight loss (Acute) Pressure sore (Acute) Jaundice (Acute) Prerenal azotemia (Acute) ESRD (end stage renal disease) (Acute) Severe dehydration (Acute) Hyponatremia with decreased serum osmolality (Acute) Colon cancer (Acute) Stage IV Peritoneal metastases (Acute) Ovarian metastasis (Acute) Omental metastasis (Acute) Date of Admission: 02/04/19 Date of Discharge: 02/05/19 - Primary Discharge Diagnosis Active and Suspected Problems (Last Reviewed 01/30/19 @ 09:08 by Tamra Beltran) Liver lesion (Acute) MARJORIE (acute kidney injury) (Acute) Weight loss (Acute) Pressure sore (Acute)- present on admission Jaundice (Acute) Prerenal azotemia (Acute) Severe dehydration (Acute) Hyponatremia with decreased serum osmolality (Acute) Colon cancer (Acute) Stage IV Peritoneal metastases (Acute) Ovarian metastasis (Acute) Omental metastasis (Acute) - Secondary Discharge Diagnosis Chronic Problems (Last Reviewed 01/30/19 @ 09:08 by Tamra Beltran) Anemia (Chronic) Hospital Course and Treatment Imaging Results: Diagnostic Data Liver Ultrasound 02/04/19 13:07 IMPRESSION: Indeterminate well-circumscribed thin-walled appearing hepatic cyst the largest of which measures 7.2 x 7.8 x 7.2 cm. Recommend follow-up dedicated CT scan of the abdomen and pelvis when appropriate with a liver mass protocol. Nonobstructing right renal stone or stones. No evidence of hydronephrosis. Limited study the common duct is not well-visualized on this study. The gallbladder is been removed. Electronically Signed: Susan Botello MD at 17:26 EDT Tel , Service support , oncology- Dr Horowitz palliative care Operations: None Procedures: None Summary of Care Provided: The patient is a 73 year old F with a past medical history significant for recently diagnosed pelvic mass for which she had debulking surgery with ileo- colectomy and primary bowel anastomosis as well as diverting loop ileostomy and bilateral salpingo-oophorectomy on January 04, 2019 at [facility] in [place]. 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 She was subsequently discharged home and followed up with oncology on 01/30/2019. Per oncology note, she was to follow-up again for reassessment of her functional and nutritional status and if there was improvement consider her for systemic palliative chemotherapy as cancer is incurable. Patient has been feeling very weak at home and this gradually progressed until day of admission(02/04/19) when her was not even able to help her get out of bed. She has had associated decreased oral intake and severe nausea. She says she felt dehydrated because she had not been drinking and eating well. She therefore came into the ED on 02/04/19 for further evaluation. On admission, sodium was 124 and creatinine was 1.62 with anion gap of 17, BUN was also elevated at 109. CBC showed hemoglobin of 17.1 and platelets of 451 with white cell count of 9.7. Initially she was tachycardic but this resolved with IV fluid administration. She was admitted to be managed for severe debility due to metastatic colon ca ncer, dehydration, hyponatremia likely hypovolemic hypotonic hyponatremia from decreased intake and MARJORIE. She was hydrated with IV fluids. Sodium trended up from 1 24-1 27 and to 137 on day of discharge. She was able to get up and ambulate with the aid of her walker. MARJORIE on CKD also resolved with creatinine trended down to 0.8. She had elevated liver enzymes and liver ultrasound showed indeterminate well-circumscribed thin-walled appearing hepatic cysts in the left hepatic lobe. Liver enzymes have a trended down with hydration. Oncology was consulted and counseled patient about need for palliative care due to her severely debilitated state and poor performance status. Patient was agreeable to palliative care evaluation but still wanted to try everything that she could. Palliative care evaluated patient on 02/05/2019 and patient was agreeable to go home with palliative care though she still intended to try chemotherapy. Patient, though still debilitated, improved much faster than expected and had severe weakness improved to the point where she was able to get up and walk around with assistance. She was therefore discharged home on 02/05/2019 to follow-up with oncology, her primary care doctor and palliative care. Patient seen and examined prior to discharge. She had no complaints and felt well. She felt much better. Review of systems otherwise negative. Labs and vitals reviewed. Home medication reviewed and reconciled. o/e: Vital Signs Height 5 ft 3 in Weight: 94 lb 9.253 oz Weight in Pounds 94.6 lbs Pulse Ox 100 Temperature 98.2 F Pulse Rate 70 Respiratory Rate 16 Blood Pressure 112/53 Blood Pressure Position Semi-Fowlers General: Alert, Oriented x3, Cooperative, No apparent distress HEENT: Atraumatic, PERRLA, EOMI, Normocephalic Oral: Moist Mucosa Neck: Supple, No JVD, Negative Carotid Bruits Lungs: Clear to auscultation, Normal air movement, No rhonchi, No wheeze, No rales Cardiovascular: Regular rate, Regular Rhythm, Normal S1, Normal S2, No murmurs Abdomen: Bowel Sounds Present, Soft, Non Tender, Non-Distended, No Hepato- splenomegaly Extremities: No clubbing, No cyanosis, No edema, Capillary Refill Less than 3 Seconds Skin: No rashes, No breakdown Musculoskeletal: No Tenderness to Palpation of Joints or Extremities Lymphatic: No Cervical, Supraclavicular, or Inguinal Adenopathy Neurological: Cranial nerves II-XII grossly intact, Neuro grossly intact, Motor Exam 5/5 strength throughout Psych/Mental Status: Normal Affect, Appropriate, Alert and oriented to time, place, person, mood and affect Plan as described above. Patient Problems: Active and Suspected Problems (Last Reviewed 01/30/19 @ 09:08 by Tamra Beltran) Liver lesion (Acute) MARJORIE (acute kidney injury) (Acute) Weight loss (Acute) Pressure sore (Acute) Jaundice (Acute) Prerenal azotemia (Acute) ESRD (end stage renal disease) (Acute) Severe dehydration (Acute) Hyponatremia with decreased serum osmolality (Acute) Colon cancer (Acute) Stage IV Peritoneal metastases (Acute) Ovarian metastasis (Acute) Omental metastasis (Acute) - Physical Exam Vital Signs Temp Pulse Resp BP Pulse Ox 98.2 F 70 16 112/53 L 100 02/05/19 08:33 02/05/19 08:33 02/05/19 08:33 02/05/19 08:33 02/05/19 08:33 Oxygen Flow Rate (L/min) 2 Oxygen Delivery Method Room Air Weight: 94 lb 9.253 oz Body Mass Index (BMI) 17.4 Intake and Output for Last 24 Hours 02/03/19 02/04/19 02/05/19 23:59 23:59 23:59 Intake Total 120 / 120 2325 / 2325 Output Total 325 / 325 Balance 120 / 120 1999 Laboratory Tests Past 24 Hrs 02/04/19 02/04/19 02/04/19 07:05 15:35 15:35 WBC RBC Hgb Hct MCV MCH MCHC RDW RDW Differential Plt Count MPV Immature Gran % (Auto) Neut % (Auto) Lymph % (Auto) [place] % (Auto) Eos % (Auto) Baso % (Auto) Absolute Neuts (auto) Absolute Lymphs (auto) Total Counted Sodium 127 L Potassium 3.2 L Chloride 94 L Carbon Dioxide 26.0 Anion Gap 7 BUN 85 H Creatinine 1.05 H Estim Creat Clear Calc 33.28 Est GFR (MDRD) Af Amer 66 Est GFR (MDRD) Non-Af 55 L BUN/Creatinine Ratio 81.0 H Glucose 168 H Serum Osmolality 292 Calcium 7.9 L Total Bilirubin 2.20 H Direct Bilirubin 0.31 H AST 56 H ALT 117 H Alkaline Phosphatase 139 H Total Protein 8.1 Albumin 4.1 Globulin 4.0 Albumin/Globulin Ratio Urine Osmolality Ur Random Sodium Urine Creatinine 02/04/19 02/04/19 02/04/19 21:23 21:23 21:23 WBC RBC Hgb Hct MCV MCH MCHC RDW RDW Differential Plt Count MPV Immature Gran % (Auto) Neut % (Auto) Lymph % (Auto) [place] % (Auto) Eos % (Auto) Baso % (Auto) Absolute Neuts (auto) Absolute Lymphs (auto) Total Counted Sodium Potassium Chloride Carbon Dioxide Anion Gap BUN Creatinine Estim Creat Clear Calc Est GFR (MDRD) Af Amer Est GFR (MDRD) Non-Af BUN/Creatinine Ratio Glucose Serum Osmolality Calcium Total Bilirubin Direct Bilirubin AST ALT Alkaline Phosphatase Total Protein Albumin Globulin Albumin/Globulin Ratio Urine Osmolality 577 Ur Random Sodium 16 Urine Creatinine 41.90 02/05/19 02/05/19 05:35 05:35 WBC 5.3 RBC 4.51 Hgb 12.7 Hct 38.3 MCV 84.9 MCH 28.2 MCHC 33.2 RDW 17.1 H RDW Differential 52.6 H Plt Count 296 MPV 11.0 Immature Gran % (Auto) 0.200 Neut % (Auto) 63.9 Lymph % (Auto) 23.4 [place] % (Auto) 10.4 H Eos % (Auto) 1.9 Baso % (Auto) 0.2 Absolute Neuts (auto) 3.4 Absolute Lymphs (auto) 1.24 Total Counted Not Reportable Sodium 137 Potassium 3.5 Chloride 104 Carbon Dioxide 25.0 Anion Gap 8 BUN 51 H Creatinine 0.80 Estim Creat Clear Calc 43.68 Est GFR (MDRD) Af Amer 91 Est GFR (MDRD) Non-Af 75 BUN/Creatinine Ratio 63.7 H Glucose 110 H Serum Osmolality Calcium 7.8 L Total Bilirubin 1.10 H Direct Bilirubin AST 38 H ALT 71 H Alkaline Phosphatase 94 Total Protein 5.7 L Albumin 2.9 L Globulin 2.8 Albumin/Globulin Ratio 1.0 Urine Osmolality Ur Random Sodium Urine Creatinine Discharge Diet: No Restrictions Discharge Activity: Return to Normal Activity Weight Bearing Status: Weight bearing as tolerated Call your doctor if you observe: Uncontrolled pain, - - worsening weakness Home Medications: Medications to take at Discharge Ibuprofen [Wal-Profen] 400 mg PO Q6H PRN PRN 01/30/19 Primary Care Physician: Zarina Rhodes [Primary Care Provider] - Please follow up with your Primary Care Physician in: one week Please Follow Up With: Jim Horowitz MD When: 1-2 weeks Patient Instructions: What Is Colon and Rectal Cancer (Colorectal Cancer)?, Discharge Instructions for Cancer of the Colon and Rectum, Discharge Instructions for Hyponatremia Disposition: Home with Home Health Minutes spent on discharge:: 40 Patient Condition:: Poor Medical Necessity - Tobacco Use Smoking Status: Never smoker Meaningful Use Info Meaningful Use Diagnoses (Choose all that apply): None applicable Code Visit Inpatient E&M: 29294 Disch Hosp
--- NOTE | 2019-02-05 11:24 | DCINST_ITS ---
- Discharge Diagnoses Current Active Problems: Current Active and Chronic Problems (Last Reviewed 01/30/19 @ 09:08 by Tamra Beltran) Liver lesion (Acute) MARJORIE (acute kidney injury) (Acute) Weight loss (Acute) Pressure sore (Acute) Jaundice (Acute) Prerenal azotemia (Acute) ESRD (end stage renal disease) (Acute) Severe dehydration (Acute) Hyponatremia with decreased serum osmolality (Acute) Colon cancer (Acute) Stage IV Peritoneal metastases (Acute) Ovarian metastasis (Acute) Omental metastasis (Acute) You will use the following diet at home:: No restrictions Your food should be the consistency of: Regular Your liquids should be the consistency of: Regular/Thin Discharge Activity: Return to Normal Activity Weight Bearing Status: Weight bearing as tolerated Call your doctor if you observe: Uncontrolled pain, - - worsening weakness Instructions: Discharge Instructions for Hyponatremia, What Is Colon and Rectal Cancer (Colorectal Cancer)?, Discharge Instructions for Cancer of the Colon and Rectum Additional Instructions: Palliative care to follow up with patient at home Allergies/Adverse Reactions: Allergies Penicillins Adverse Reaction (Intermediate, Verified 02/04/19 06:59) Rash ITCHY Medications to take at Discharge Ibuprofen [Wal-Profen] 400 mg PO Q6H PRN PRN 01/30/19 Primary Care Physician: Zarina Rhodes [Primary Care Provider] - Please follow up with your Primary Care Physician in: one week Test Results: Test results from this visit will be discussed in further detail at your follow- up appointment, if applicable. Please Follow Up With: Jim Horowitz MD When: 1-2 weeks Proposed Discharge Date: 02/05/19
--- NOTE | 2019-02-05 11:49 | CASEMGMT ---
RN CM Assessment Presentation: weakness, hx of cancer, acute hyponatremia Intro role of CM and purpose of RN CM assessment to patient and her . Demographics, PCP and Pharmacy verified. says he plans to have pt return home and they have signed up for Palliative Care. Palliative Care staff met with pt and will see her at home. Pt is declining home health at this time PCP: Dr. Zarina Rhodes Specialists: Dr. Naranjo Preferred Pharmacy: [facility] Insurance: [facility] Prescription Benefit: yes LNOK: Home Living Arrangements: Lives in one story home with her , 13 steps into home. Pt states she sponge baths only, is available to assist with ADL. They do not wish for assistance at home, but RN CM encouraged getting a wheeled walker. Transportation: drives DME: script for wheeled walker obtained. prefers to take with him and buy @ his local store. Script given to him. HHC: none Patient DC goals: Home with Palliative Care DC PLAN: Home w/Palliative Care. Dominique BRIGHT RN ACM
[2019-02-05 14:06] VITALS: BP 96/65; PULSE 85; RESP 16; TEMP 36.9; O2SAT 100
--- NOTE | 2019-02-06 13:56 | CASEMGMT ---
Addendum entered by Lu Chaudhry 02/06/19 14:16: Call placed to Gracy @ [facility]. She was notified of pt's [place] ER visit last evening, that pt reports she does not have any further ostomy supplies, and that pt is requesting to order/purchase the type of ostomy bag that she received from [place] ER d/t it is working better/not leaking. Gracy states a nurse will be calling pt shortly. Original Note: RN CM Discharge Follow-Up Phone Call. Lace: 9 Strata: 3 Discharge Date: 02/05/19 Adm Dx: hyponatremia, dehydration Call to pt to inquire about how she has been doing since being discharged from the hospital. Pt states she was in [place] ER last night d/t her ostomy bag leaking and she was out of supplies. Pt states she is very pleased with the ostomy bag she got from that ER and she would like to find out how to purchase this same kind d/t the other brands/kinds she has had in the past leak often. She states she has not spoken to anyone from [facility] yet and they are not aware of her ER visit last night or that she needs supplies. Pt informed that this RN JERSON would call [facility] to let them know. Pt voices appreciation. Pt denies having any questions about the discharge instructions and appts. She states she has not made an appt with her PCP/Dr hBardwaj yet. She states her stated that he did not think that Dr Bhardwaj needed to be involved. Pt informed that the PCP's do want to folow up with their pt's after hospitalizations and that Dr Fajardo has it listed in the discharge instructions that she wants to her follow up with Dr Bhardwaj within a week. Pt stated, I thought I saw that written down somewhere. Pt stated she plans to call to make an appt. Discussed appt with Dr Horowitz on 02/19 and pt is aware. She states she has an upcoming appt at the wound center as well and plans to call Dr Horowitz's office after that to discuss any changes at that time. Pt denies any other questions or concerns. Pt thanked THOMAS ARTHUR for calling her. THOMAS ARTHUR thanked pt for choosing [facility]. Roxy BRIGHT RN, CM
== END 2019-02-05 14:36 | disposition home or self-care (01) | DRG 374 ==
LOC: ED 07:51 → MS3 07:56
PROVIDERS: Internal Medicine Hematology & Oncology; Admitting Provider Student in an Organized Health Care Education/Training Program; Emergency Provider Emergency Medicine; Family Provider Family Medicine; PCP Family Medicine; Visit Provider Student in an Organized Health Care Education/Training Program
DX: C18.2 Malignant neoplasm of ascending colon (principal); E43 Unspecified severe protein-calorie malnutrition; E87.1 Hypo-osmolality and hyponatremia; N17.9 Acute kidney failure, unspecified; C78.6 Secondary malignant neoplasm of retroperitoneum and peritoneum; C79.62 Secondary malignant neoplasm of left ovary; Z68.1 Body mass index [BMI] 19.9 or less, adult; R64 Cachexia; Z93.2 Ileostomy status; Z90.49 Acquired absence of other specified parts of digestive tract; Z90.722 Acquired absence of ovaries, bilateral; Z90.79 Acquired absence of other genital organ(s); L89.152 Pressure ulcer of sacral region, stage 2; E86.0 Dehydration; D64.9 Anemia, unspecified; Z51.5 Encounter for palliative care; K76.9 Liver disease, unspecified
CPT/HCPCS: 36415; 76705; 80048; 80053; 80076; 82533; 82570; 83930; 83935; 84300; 85025; 93005; 97162; 97166; 97530; 97802; 99285; J7030; J2405

== ENCOUNTER 2019-02-10 15:23 | Inpatient (IN) | payer MEDICARE, SELFPAY ==
[2019-02-04 06:56] VITALS: BMI 17.4
[2019-02-10 15:23] VITALS: BP 104/54; PULSE 125; RESP 17; TEMP 36.7; O2SAT 99; BMI 17.9
--- NOTE | 2019-02-10 16:06 | RAD_ITS ---
STUDY: X-RAY CHEST REASON FOR EXAM: Female, 73 years old. Weakness, shortness of breath and cough TECHNIQUE: Single AP portable view of the chest. COMPARISON: None. FINDINGS: The lungs are clear and expanded. There is no demonstrated pleural abnormality. Normal size heart. Normal mediastinum and booker. Normal visualized pulmonary arteries. Normal visualized aortic arch and descending thoracic aorta. There is a mild thoracolumbar levoscoliosis. Normal visualized ribs, clavicles, and shoulders. There is no demonstrated abnormality of the visualized soft tissue structures of the upper abdomen. RAD/Chest 1 View (Portable) IMPRESSION: Mild thoracolumbar levoscoliosis. No acute cardiopulmonary disease process is seen. Electronically Signed: Goldy Rivera MD at 16:41 EDT , Service support ,
--- NOTE | 2019-02-10 16:17 | ED.VISSUMM ---
- ER Visit Summary Date of Service: 02/10/19 Chief Complaint: Weakness History of Present Illness: The patient is a 73 F who presents with diffuse generalized weakness. The patient was admitted last week for the same symptoms and was found to be hyponatremic. She has a history of a pelvic mass which turned out to be stage IV colon cancer. She had tumor debulking and a ileocolostomy done at [facility] last month. She was discharged home on January 30. She was admitted last week for hyponatremia and weakness. Palliative care saw the patient and the patient went home with palliative care with the possibility of chemotherapy if she gained weight. She continues to have nausea and vomiting at home. She states that her medications are not helping. She has not had a fever. Physical Examination: Vital signs reviewed. HEENT exam unremarkable. Heart is tachycardic and regular rhythm without murmurs. Lungs are clear to auscultation. Abdomen is soft and nontender. There is a colostomy in place. Extremities reveal no edema. Skin exam a wound on the left upper buttock. neurologic exam has diffuse overall weakness. She is alert and oriented x3. Test Results: Hemoglobin 17, sodium 123, chloride 88. BUN 53, creatinine 1.28. Total bili 1.2. ALT 199 and AST 109. Emergency Department Course and Treatment: The patient was given normal saline and Zofran. Her laboratory studies have declined including her creatinine and sodium. She is not eating well at home. Patient will need to be admitted to the hospital for IV hydration. Patient was discussed with hospitalist for admission Treatment Plan: [] Disposition: Admit to observation Impression: Hyponatremia, dehydration This note was generated with [employer] dictation software. It may contain incorrect words, spelling, and punctuation that were not noted in review of the chart prior to signing ED Disposition - Plan for ED Patient: Referrals: Zarina Rhodes [Primary Care Provider] -
[2019-02-10] MEDS: 0.9% Normal Saline 1,000 ML 1000 ML IV (16:22)
[2019-02-10] MEDS: Ondansetron 4 MG/2 ML Vial IV ×2 (16:22→21:42)
[2019-02-10 16:30] LABS: Absolute Lymphocyte Count 1.68 X10^3/ul (0.83-4.51); Absolute Neutrophil Count 7.5 X10^3/uL (2.0-7.7); Basophil# 0.01 X10^3/uL; Basophil% 0.1 % (0-1); Eosinophil# 0.12 X10^3/uL; Eosinophils% 1.2 % (0-5); Hematocrit 48.5 % (37-47); Lymphocyte # 1.68 X10^3/ul (4.0); Lymphocyte % 16.9 % (19-41); Mean Corp Hgb Conc 35.1 g/gl (32-36); Mean Corpuscular Hgb 28.8 pg (27.0-32.0); Mean Corpuscular Volume 82.1 fL (81-99); Mean Platelet Vol. 10.9 fl (6.2-12.0); Monocyte# 0.69 X10^3/uL; Monocyte% 6.9 % (0-10); Neutrophil # 7.45 X10^3/uL (2.7-7.7); Neutrophil % 74.7 % (47-70); Platelet Count 468 K/mm3 (150-450); RBC Distribution Width CV 16.6 % (11.6-14.6); RBC Distribution Width SD 50.2 fl (35.1-43.9); Red Blood Count 5.91 M/mm3 (4.2-5.4)
[2019-02-10 16:35] LABS: POSITIVE COUNT NO; POSITIVE DIFFERENTIAL NO; POSITIVE MORPHOLOGY NO
[2019-02-10 16:47] LABS: ALB/GLOB Ratio 1.1 RATIO (0.9-2.4); AST(SGOT) 109 U/L (15-37); Alanine Aminotransfer ALT/SGPT 199 U/L (13-56); Albumin, Serum 4.1 g/dL (3.2-5.0); Alkaline Phosphatase 166 U/L (45-117); Anion Gap 13 (5-15); BUN 53 mg/dL (7-18); BUN/Creat Ratio 41.4 RATIO (10-20); Calcium,Total 8.9 mg/dL (8.5-10.1); Chloride 88 mmol/L (98-107); Creatinine, Serum 1.28 mg/dL (0.55-1.02); EST Glomerular Filtration Rate 44 mL/min (>60); Est Glom Filt Rate - Afr Amer 53 mL/min (>60); Estimated Creatinine Clearance 26.56 ml/min; Globulin 3.8 g/dL (2.2-4.2); Glucose 160 mg/dL (74-106); Lipase 578 U/L (73-393); Potassium 3.5 mmol/L (3.5-5.1); Protein, Total 7.9 g/dL (6.4-8.2); Sodium Level 123 mmol/L (136-145)
--- NOTE | 2019-02-10 17:13 | PCM.HP.STD ---
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 The patient is a 73 year old F who presents emergency room due to generalized weakness. She was recently discharged from [facility] 02/05/2019 where she was treated for severe debility due to metastatic colon cancer, dehydration, hypovolemic hyponatremia, and acute kidney injury. Patient was discharged home with palliative care. She reports her goal was to try chemotherapy however she was told she needed to gain weight prior to initiating chemotherapy. She reports she has not been taking her oral medications and has had very little oral intake due to poor appetite as well as vomiting after eating. She is agreeable to try appetite stimulant. She has a past medical history of metastatic colon cancer status post debulking surgery 01/04/[address] [facility] resulting in right ileostomy, depression, chronic kidney disease stage III, severe protein calorie malnutrition. Past Medical History Past Medical History (Chronic Problems): Chronic Problems (Last Reviewed 01/30/19 @ 09:08 by Tamra Beltran) Liver lesion (Chronic) Weight loss (Chronic) Pressure sore (Chronic) Jaundice (Chronic) Colon cancer (Chronic) Stage IV Peritoneal metastases (Chronic) Ovarian metastasis (Chronic) Anemia (Chronic) Medical History: Medical History (Last Reviewed 01/30/19 @ 09:08 by Tamra Beltran) Colon cancer C18.9 Depression F32.9 Ileostomy present Z93.2 Irritable bowel syndrome (IBS) K58.9 Allergies Penicillins Adverse Reaction (Intermediate, Verified 02/04/19 06:59) Rash ITCHY Home Medications: Ambulatory Orders Medication Instructions Recorded Diphenoxylate HCl/Atropine 1 each PO DAILY 02/10/19 [Diphenoxylate-Atrop 2.5-0.025] Fluoxetine [Prozac] 10 mg PO DAILY 02/10/19 Ondansetron [Zofran] 8 mg PO DAILY 02/10/19 Oxycodone [Oxyir] 5 mg PO PRN PRN 02/10/19 Prochlorperazine Maleate 10 mg PO DAILY 02/10/19 Surgical History: Surgical History (Last Reviewed 01/30/19 @ 09:08 by Tamra Beltran) History of tonsillectomy Z90.89 Status post ileostomy Z93.2 01-04-19 exploratory laparotomy, tumor debulking, ileocecetomy with resection of large mass, primary bowel anastomosis, mobilization of hepatic flexure, bilateral salpingo-oophorectomy, diverting loop ileostomy Surgical History: - - Colostomy with Carmen pouch and ileostomy 01/04/19 Psychiatric History: Depression 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 Paternal Family History: Family History (Last Updated 01/30/19 @ 09:52 by Tamra Beltran) Other No pertinent family history History Items: - - Denies known paternal medical history including cardiac history. Review of Systems Constitutional: Reports: Weakness, Weight Change - weight loss, Fatigue. Denies: Chills, Fever HEENT: Denies: Head Aches, Sinus Congestion, Sinus Drainage Cardiovascular: Denies: Chest Pain, Palpitations Respiratory: Denies: Cough, Shortness of breath at rest, Sputum production Gastrointestinal: Reports: Nausea, Vomiting. Denies: Abdominal Pain Genitourinary: Denies: Dysuria Musculoskeletal: Denies: Joint Pain, Joint Tenderness Skin: Denies: Rash, Wounds Neurological: Denies: Numbness, Tingling, Focal weakness Psychiatric: Reports: Depression Hematologic/ Lymphatic: Denies: Easy Bruising, Easy Bleeding VTE Information - Inpt Only VTE Present on Admission: No VTE Mechan Device Prophylaxis: None VTE Pharm Prophylaxis ordered?: Yes - Physical Exam General: Alert, Oriented x3, Cooperative, - - Cachectic, fatigued appearing HEENT: Atraumatic, PERRLA, EOMI, Normocephalic Neck: Supple, No JVD, Negative Carotid Bruits Lungs: Clear to auscultation, Normal air movement Cardiovascular: Regular rate, Regular Rhythm, Normal S1, Normal S2, No murmurs Abdomen: Bowel Sounds Present, Soft, Non Tender, Non-Distended, - - Ileostomy in place Extremities: No clubbing, No cyanosis, No edema, Capillary Refill Less than 3 Seconds Skin: No rashes, No breakdown Musculoskeletal: No Tenderness to Palpation of Joints or Extremities Neurological: Cranial nerves II-XII grossly intact, Neuro grossly intact Psych/Mental Status: Flat Affect Vital Signs Temp Pulse Resp BP Pulse Ox 98.0 F 125 H 17 104/54 L 99 02/10/19 15:23 02/10/19 15:23 02/10/19 15:23 02/10/19 15:23 02/10/19 15:23 Oxygen Delivery Method Room Air Weight: 92 lb Body Mass Index (BMI) 17.9 Laboratory Tests Past 24 Hrs 02/10/19 02/10/19 16:23 16:23 WBC 10.0 RBC 5.91 H Hgb 17.0 H Hct 48.5 H MCV 82.1 MCH 28.8 MCHC 35.1 RDW 16.6 H RDW Differential 50.2 H Plt Count 468 H MPV 10.9 Immature Gran % (Auto) 0.200 Neut % (Auto) 74.7 H Lymph % (Auto) 16.9 L [place] % (Auto) 6.9 Eos % (Auto) 1.2 Baso % (Auto) 0.1 Absolute Neuts (auto) 7.5 Absolute Lymphs (auto) 1.68 Total Counted Not Reportable Sodium 123 L Potassium 3.5 Chloride 88 L Carbon Dioxide 22.0 Anion Gap 13 BUN 53 H Creatinine 1.28 H Estim Creat Clear Calc 26.56 Est GFR (MDRD) Af Amer 53 L Est GFR (MDRD) Non-Af 44 L BUN/Creatinine Ratio 41.4 H Glucose 160 H Calcium 8.9 Total Bilirubin 1.20 H AST 109 H ALT 199 H Alkaline Phosphatase 166 H Total Protein 7.9 Albumin 4.1 Globulin 3.8 Albumin/Globulin Ratio 1.1 Lipase 578 H Assessment/Plan All Active Problems (Last Reviewed 01/30/19 @ 09:08 by Tamra Beltran) MARJORIE (acute kidney injury) (Acute) Hyponatremia with decreased serum osmolality (Acute) Omental metastasis (Acute) 1. Acute kidney injury on suspected chronic kidney disease stage III-secondary to dehydration as a result of poor oral intake. IV fluids. Trend BMP. 2. Hypovolemic hyponatremia-IV fluids as noted above. Trend BMP. 3. Metastatic colon cancer status post debulking surgery and right ileostomy 01/04/[address] [facility]-following with Dr. Horowitz, possible chemo initiation if patient is able to gain weight. 4. Severe protein calorie malnutrition-BMI 18. Nutrition consult. Begin Danielle Romano for appetite stimulant. 5. Generalized weakness/debility secondary to metastatic colon cancer- PT/OT. DVT prophylaxis-Lovenox subcu This patient was seen by NATALIA Tinajero under the supervision of Dr. Lucio.
--- NOTE | 2019-02-10 17:21 | HP.PCM_ITS ---
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 The patient is a 73 year old F who presents emergency room due to generalized weakness. She was recently discharged from [facility] 02/05/2019 where she was treated for severe debility due to metastatic colon cancer, dehydration, hypovolemic hyponatremia, and acute kidney injury. Patient was discharged home with palliative care. She reports her goal was to try chemotherapy however she was told she needed to gain weight prior to initiating chemotherapy. She reports she has not been taking her oral medications and has had very little oral intake due to poor appetite as well as vomiting after eating. She is agreeable to try appetite stimulant. She has a past medical history of metastatic colon cancer status post debulking surgery 01/04/19 at [facility] resulting in right ileostomy, depression, chronic kidney disease stage III, severe protein calorie malnutrition. Past Medical History Past Medical History (Chronic Problems): Chronic Problems (Last Reviewed 01/30/19 @ 09:08 by Tamra Beltran) Liver lesion (Chronic) Weight loss (Chronic) Pressure sore (Chronic) Jaundice (Chronic) Colon cancer (Chronic) Stage IV Peritoneal metastases (Chronic) Ovarian metastasis (Chronic) Anemia (Chronic) Medical History: Medical History (Last Reviewed 01/30/19 @ 09:08 by Tamra Beltran) Colon cancer C18.9 Depression F32.9 Ileostomy present Z93.2 Irritable bowel syndrome (IBS) K58.9 Allergies Penicillins Adverse Reaction (Intermediate, Verified 02/04/19 06:59) Rash ITCHY Home Medications: Ambulatory Orders Medication Instructions Recorded Diphenoxylate HCl/Atropine 1 each PO DAILY 02/10/19 [Diphenoxylate-Atrop 2.5-0.025] Fluoxetine [Prozac] 10 mg PO DAILY 02/10/19 Ondansetron [Zofran] 8 mg PO DAILY 02/10/19 Oxycodone [Oxyir] 5 mg PO PRN PRN 02/10/19 Prochlorperazine Maleate 10 mg PO DAILY 02/10/19 Surgical History: Surgical History (Last Reviewed 01/30/19 @ 09:08 by Tmara Beltran) History of tonsillectomy Z90.89 Status post ileostomy Z93.2 01-04-19 exploratory laparotomy, tumor debulking, ileocecetomy with resection of large mass, primary bowel anastomosis, mobilization of hepatic flexure, bilateral salpingo-oophorectomy, diverting loop ileostomy Surgical History: - - Colostomy with Carmen pouch and ileostomy 01/04/19 Psychiatric History: Depression DECISION SUPPORT MANAGER History: No pertinent DECISION SUPPORT MANAGER history Lives: Spouse/ Significant Other Smoking Status: Never smoker Alcohol: None Drugs: None - *Family History Maternal Family History: Family History (Last Updated 01/30/19 @ 09:52 by Tamra Beltran) Other No pertinent family history History Items: - - Denies known maternal medical history including cardiac history. Paternal Family History: Family History (Last Updated 01/30/19 @ 09:52 by Tamra Beltran) Other No pertinent family history History Items: - - Denies known paternal medical history including cardiac history. Review of Systems Constitutional: Reports: Weakness, Weight Change - weight loss, Fatigue. Denies: Chills, Fever HEENT: Denies: Head Aches, Sinus Congestion, Sinus Drainage Cardiovascular: Denies: Chest Pain, Palpitations Respiratory: Denies: Cough, Shortness of breath at rest, Sputum production Gastrointestinal: Reports: Nausea, Vomiting. Denies: Abdominal Pain Genitourinary: Denies: Dysuria Musculoskeletal: Denies: Joint Pain, Joint Tenderness Skin: Denies: Rash, Wounds Neurological: Denies: Numbness, Tingling, Focal weakness Psychiatric: Reports: Depression Hematologic/ Lymphatic: Denies: Easy Bruising, Easy Bleeding VTE Information - Inpt Only VTE Present on Admission: No VTE Mechan Device Prophylaxis: None VTE Pharm Prophylaxis ordered?: Yes - Physical Exam General: Alert, Oriented x3, Cooperative, - - Cachectic, fatigued appearing HEENT: Atraumatic, PERRLA, EOMI, Normocephalic Neck: Supple, No JVD, Negative Carotid Bruits Lungs: Clear to auscultation, Normal air movement Cardiovascular: Regular rate, Regular Rhythm, Normal S1, Normal S2, No murmurs Abdomen: Bowel Sounds Present, Soft, Non Tender, Non-Distended, - - Ileostomy in place Extremities: No clubbing, No cyanosis, No edema, Capillary Refill Less than 3 Seconds Skin: No rashes, No breakdown Musculoskeletal: No Tenderness to Palpation of Joints or Extremities Neurological: Cranial nerves II-XII grossly intact, Neuro grossly intact Psych/Mental Status: Flat Affect Vital Signs Temp Pulse Resp BP Pulse Ox 98.0 F 125 H 17 104/54 L 99 02/10/19 15:23 02/10/19 15:23 02/10/19 15:23 02/10/19 15:23 02/10/19 15:23 Oxygen Delivery Method Room Air Weight: 92 lb Body Mass Index (BMI) 17.9 Laboratory Tests Past 24 Hrs 02/10/19 02/10/19 16:23 16:23 WBC 10.0 RBC 5.91 H Hgb 17.0 H Hct 48.5 H MCV 82.1 MCH 28.8 MCHC 35.1 RDW 16.6 H RDW Differential 50.2 H Plt Count 468 H MPV 10.9 Immature Gran % (Auto) 0.200 Neut % (Auto) 74.7 H Lymph % (Auto) 16.9 L [place] % (Auto) 6.9 Eos % (Auto) 1.2 Baso % (Auto) 0.1 Absolute Neuts (auto) 7.5 Absolute Lymphs (auto) 1.68 Total Counted Not Reportable Sodium 123 L Potassium 3.5 Chloride 88 L Carbon Dioxide 22.0 Anion Gap 13 BUN 53 H Creatinine 1.28 H Estim Creat Clear Calc 26.56 Est GFR (MDRD) Af Amer 53 L Est GFR (MDRD) Non-Af 44 L BUN/Creatinine Ratio 41.4 H Glucose 160 H Calcium 8.9 Total Bilirubin 1.20 H AST 109 H ALT 199 H Alkaline Phosphatase 166 H Total Protein 7.9 Albumin 4.1 Globulin 3.8 Albumin/Globulin Ratio 1.1 Lipase 578 H Assessment/Plan All Active Problems (Last Reviewed 01/30/19 @ 09:08 by Tamra Beltran) MARJORIE (acute kidney injury) (Acute) Hyponatremia with decreased serum osmolality (Acute) Omental metastasis (Acute) 1. Acute kidney injury on suspected chronic kidney disease stage III-secondary to dehydration as a result of poor oral intake. IV fluids. Trend BMP. 2. Hypovolemic hyponatremia-IV fluids as noted above. Trend BMP. 3. Metastatic colon cancer status post debulking surgery and right ileostomy 01/04/19 at [facility]-following with Dr. Horowitz, possible chemo initiation if patient is able to gain weight. 4. Severe protein calorie malnutrition-BMI 18. Nutrition consult. Begin Danilele Romano for appetite stimulant. 5. Generalized weakness/debility secondary to metastatic colon cancer- PT/OT. DVT prophylaxis-Lovenox subcu This patient was seen by NATALIA Tinajero under the supervision of Dr. Lucio.
--- NOTE | 2019-02-10 17:23 | NURSING ---
MED SURG OBS TERELETSKY HYPONATREMIA, DEHYDRATION
[2019-02-10 17:24] VITALS: BP 100/52; PULSE 69; RESP 16; O2SAT 96
--- NOTE | 2019-02-10 17:50 | ED.RN ---
PT RESTING COMFORTABLY IN BED AT THIS TIME. SPOUSE AT BEDSIDE. PT VOICES NO CONCERNS. DR Campbell HAS SEEN PT. AWAITING ROOM READY
[2019-02-10 18:14] VITALS: BMI 18.1; BMI 18.2
[2019-02-10 18:25] VITALS: BP 98/66; PULSE 88; RESP 18; TEMP 36.3; O2SAT 100
[2019-02-10] MEDS: Megestrol 40 MG Tablet 160 MG PO ×2 (18:46→21:45)
[2019-02-10] MEDS: 0.9% Normal Saline 1,000 ML 125 ML IV (18:46)
[2019-02-10 19:44] VITALS: BP 108/69; PULSE 86; RESP 16; TEMP 36.4; O2SAT 100
[2019-02-10 20:54] LABS: Bacteria 0 SEEN /hpf (None Seen); Red Blood Cells-Urine 0 SEEN /hpf (0-5)
[2019-02-10 20:57] LABS: Color, Urine Yellow (Yellow); Glucose, Dipstick Normal (Normal); Ketone-Dipstick Negative (Negative); Leukocyte Esterase-Dipstick Negative /ul (Negative); Nitrite-Dipstick Negative (Negative); Occult Blood-Urine Negative /ul (Negative); Protein-Dipstick Negative (Negative); Specific Gravity, Urine 1.015 (1.002-1.030); Urine Bilirubin Dipstick Negative (Negative); Urine Clarity Clear (Clear); Urine Urobilinogen Normal (Normal)
[2019-02-10 21:24] LABS: Hyaline Cast 10-25 SEEN /lpf (0-5)
[2019-02-10 21:25] LABS: Squamous Epithelial Cells - UA 0-5 SEEN /hpf (5-10)
[2019-02-10 21:26] LABS: Fine Granular Cast- Urine 0-5 SEEN /lpf (0-5); Mucous, Urine RARE /hpf (<or=2+)
[2019-02-10 21:29] LABS: White Blood Cells 0-5 SEEN /hpf (0-5)
[2019-02-10] MEDS: Metoclopramide 10 MG/10 ML UDC 5 MG PO (21:44)
[2019-02-10] MEDS: Mirtazapine 15 MG Tablet PO (21:44)
[2019-02-11 02:54] VITALS: BP 111/73; PULSE 98; RESP 18; TEMP 36.9; O2SAT 100
[2019-02-11] MEDS: DiphenhydrAMINE 50 MG/ML Syringe 12.5 MG IV (03:04)
[2019-02-11] MEDS: 0.9% Normal Saline 1,000 ML 125 ML IV ×3 (03:05→19:27)
[2019-02-11] MEDS: Metoclopramide 10 MG/10 ML UDC 5 MG PO ×3 (05:35→22:29)
[2019-02-11 06:35] LABS: Anion Gap 9 (5-15); BUN 34 mg/dL (7-18); BUN/Creat Ratio 37.6 RATIO (10-20); Calcium,Total 7.8 mg/dL (8.5-10.1); Chloride 103 mmol/L (98-107); EST Glomerular Filtration Rate 65 mL/min (>60); Est Glom Filt Rate - Afr Amer 79 mL/min (>60); Estimated Creatinine Clearance 38.26 ml/min; Glucose 101 mg/dL (74-106); Potassium 3.1 mmol/L (3.5-5.1); Sodium Level 130 mmol/L (136-145)
[2019-02-11 08:03] VITALS: BP 106/65; PULSE 88; RESP 18; TEMP 36.4; O2SAT 100
[2019-02-11] MEDS: Megestrol 40 MG Tablet 160 MG PO ×4 (08:55→21:56)
[2019-02-11] MEDS: Enoxaparin 40 MG/0.4 ML Syringe SC (08:55)
[2019-02-11 09:05] LABS: Magnesium 1.6 mg/dL (1.6-2.6)
--- NOTE | 2019-02-11 10:18 | PN_ITS ---
Subjective: Patient seen and examined. Complains of mild nausea. Continues to feel fatigued. Agreeable to SNF for therapy. - Physical Exam General: Alert, Oriented x3, Cooperative, - - Cachectic, fatigued appearing. HEENT: Atraumatic, PERRLA, EOMI, Normocephalic Neck: Supple, No JVD, Negative Carotid Bruits Lungs: Clear to auscultation, Normal air movement Cardiovascular: Regular rate, Regular Rhythm, Normal S1, Normal S2, No murmurs Abdomen: Bowel Sounds Present, Soft, Non Tender, Non-Distended Extremities: No clubbing, No cyanosis, No edema, Capillary Refill Less than 3 Seconds Skin: No rashes, No breakdown Musculoskeletal: No Tenderness to Palpation of Joints or Extremities Neurological: Cranial nerves II-XII grossly intact, Neuro grossly intact Psych/Mental Status: Flat Affect Vital Signs Temp Pulse Resp BP Pulse Ox 97.6 F L 88 18 106/65 100 02/11/19 08:03 02/11/19 08:03 02/11/19 08:03 02/11/19 08:03 02/11/19 08:03 Oxygen Delivery Method Room Air Weight: 93 lb 3.2 oz Body Mass Index (BMI) 18.1 Intake and Output for Last 24 Hours 02/09/19 02/10/19 02/11/19 23:59 23:59 23:59 Intake Total 1790 / 1790 Balance 1790 / 1790 Laboratory Tests Past 24 Hrs 02/10/19 02/10/19 02/10/19 16:23 16:23 19:30 WBC 10.0 RBC 5.91 H Hgb 17.0 H Hct 48.5 H MCV 82.1 MCH 28.8 MCHC 35.1 RDW 16.6 H RDW Differential 50.2 H Plt Count 468 H MPV 10.9 Immature Gran % (Auto) 0.200 Neut % (Auto) 74.7 H Lymph % (Auto) 16.9 L [place] % (Auto) 6.9 Eos % (Auto) 1.2 Baso % (Auto) 0.1 Absolute Neuts (auto) 7.5 Absolute Lymphs (auto) 1.68 Total Counted Not Reportable Sodium 123 L Potassium 3.5 Chloride 88 L Carbon Dioxide 22.0 Anion Gap 13 BUN 53 H Creatinine 1.28 H Estim Creat Clear Calc 26.56 Est GFR (MDRD) Af Amer 53 L Est GFR (MDRD) Non-Af 44 L BUN/Creatinine Ratio 41.4 H Glucose 160 H Calcium 8.9 Magnesium Total Bilirubin 1.20 H AST 109 H ALT 199 H Alkaline Phosphatase 166 H Total Protein 7.9 Albumin 4.1 Globulin 3.8 Albumin/Globulin Ratio 1.1 Lipase 578 H Urine Color Yellow Urine Clarity Clear Urine pH 6.0 Ur Specific [place] 1.015 Urine Protein Negative Urine Glucose (UA) Normal Urine Ketones Negative Urine Occult Blood Negative Urine Nitrite Negative Urine Bilirubin Negative Urine Urobilinogen Normal Ur Leukocyte Esterase Negative Urine RBC 0 SEEN Urine WBC 0-5 SEEN Ur Squamous Epith Cells 0-5 SEEN Urine Bacteria 0 SEEN Hyaline Casts 10-25 SEEN Fine Granular Casts 0-5 SEEN Urine Mucus RARE 02/11/19 02/11/19 05:56 05:56 WBC RBC Hgb Hct MCV MCH MCHC RDW RDW Differential Plt Count MPV Immature Gran % (Auto) Neut % (Auto) Lymph % (Auto) [place] % (Auto) Eos % (Auto) Baso % (Auto) Absolute Neuts (auto) Absolute Lymphs (auto) Total Counted Sodium 130 L Potassium 3.1 L Chloride 103 Carbon Dioxide 18.0 L Anion Gap 9 BUN 34 H Creatinine 0.90 Estim Creat Clear Calc 38.26 Est GFR (MDRD) Af Amer 79 Est GFR (MDRD) Non-Af 65 BUN/Creatinine Ratio 37.6 H Glucose 101 Calcium 7.8 L Magnesium 1.6 Total Bilirubin AST ALT Alkaline Phosphatase Total Protein Albumin Globulin Albumin/Globulin Ratio Lipase Urine Color Urine Clarity Urine pH Ur Specific [place] Urine Protein Urine Glucose (UA) Urine Ketones Urine Occult Blood Urine Nitrite Urine Bilirubin Urine Urobilinogen Ur Leukocyte Esterase Urine RBC Urine WBC Ur Squamous Epith Cells Urine Bacteria Hyaline Casts Fine Granular Casts Urine Mucus Medical Necessity - Tobacco Use Smoking Status: Never smoker Assessment/Plan All Active Problems (Last Reviewed 01/30/19 @ 09:08 by Tamra Beltran) MARJORIE (acute kidney injury) (Acute) Hyponatremia with decreased serum osmolality (Acute) 1. Acute kidney injury on suspected chronic kidney disease stage III-secondary to dehydration as a result of poor oral intake. Resolved with IV fluids. Trend BMP. 2. Hypovolemic hyponatremia-improved with IV fluids. Trend BMP. 3. Metastatic colon cancer status post debulking surgery and right ileostomy 01/04/19 at [facility]-following with Dr. Horowitz, possible chemo initiation if patient is able to gain weight. 4. Severe protein calorie malnutrition-BMI 18. Nutrition consult. Begin RemDanielle oliveira for appetite stimulant. 5. Generalized weakness/debility secondary to metastatic colon cancer- PT/OT. SNF pending pre-cert. DVT prophylaxis-Lovenox subcu Discharge planning: SNF pending pre-cert. This patient was seen by NATALIA Tinajero under the supervision of Dr. Lucio.
--- NOTE | 2019-02-11 11:05 | CASEMGMT ---
Social Work Note ELVA updated by PA that pt is agreeable to SNF/TCU as pt wishes to get stronger, gain weight and begin chemotherapy. SW reviewed H+P and previous notes. Pt was diagnosed with stage IV colon cancer beginning of December 2018, not currently receiving chemotherapy. Pt has had weight loss and not eating at home. RN JERSON and this worker had conversation regarding Hospice with physician, pt is not ready to sign with Hospice at this time. ELVA met with pt, introduced self and role at [facility]. Pt is alert and orientated but drowsy and falling in and out of sleep during conversation. Pt states she lives with her who is able to assist at home. SW asked pt about discharge plans. Pt states my first choice would to go home but would also be agreeable to TCU. ELVA educated pt on TCU and that she would be required to do therapy everyday. Pt states understanding, but again is in and out of sleeping during conversation. ELVA informed pt that this worker will put pt on TCU list and be back later to continue conversation regarding TCU. Pt states understanding. ELVA placed a call to [facility] in TCU, provided referral. SW received call from [facility] in TCU stating she is able to accept pt Monday. Plan: TCU Monday ELVA will meet with pt later as time permits to continue discussion regarding TCU and to provide support regarding new diagnosis of stage IV colon cancer. SW to continue to follow along. Virginia Quintana GEOTHERMAL FIELD TECHNICIAN, SENIOR EMBEDDED SOFTWARE ENGINEER
[2019-02-11 12:59] VITALS: BP 91/58; PULSE 84; RESP 18; TEMP 37.2; O2SAT 100
--- NOTE | 2019-02-11 13:05 | NURSING ---
Ileostomy appliance intact at this time. no signs of leaks noted. there is some redness to the skin just inferior to the appliance. appears to be from irritation. pt states appliance was changed 2 days ago and would like to see if she could get another day or two out of this one. pt prefers to use the [employer] appliances that she has and she is waiting for her shipment to come in. Educated patient that of she has a leak, we will have to use the appliances that we have here. pt agreed. present at bedside.
--- NOTE | 2019-02-11 13:12 | NURSING ---
wound photo: sacrum
[2019-02-11] MEDS: Ensure Clear 120 ML Liquid PO ×3 (15:01→21:57)
[2019-02-11 17:57] VITALS: BP 104/58; PULSE 93; RESP 16; TEMP 36.7; O2SAT 100
[2019-02-11 21:30] VITALS: BP 97/49; PULSE 90; RESP 16; TEMP 36.5; O2SAT 97
[2019-02-11] MEDS: Mirtazapine 15 MG Tablet PO (21:56)
[2019-02-12 02:00] VITALS: BP 107/62; PULSE 84; RESP 18; TEMP 36.4; O2SAT 94
[2019-02-12] MEDS: 0.9% Normal Saline 1,000 ML 125 ML IV ×3 (03:38→20:12)
[2019-02-12] MEDS: Metoclopramide 10 MG/10 ML UDC 5 MG PO ×3 (05:49→22:13)
--- NOTE | 2019-02-12 08:06 | NURSING ---
Ileostomy appliance leaking this am. assisted patient in getting cleaned up. appliance changed. patient states brought in the new appliance that she wanted to try. Appliance is a 1 piece flat [employer] Sensura appliance #[id number]. patient prefers to use and Sarwat ring rather than paste. removed ostomy appliance. there is some denuded skin to the peristomal skin. stoma is well budded, but sits in the crease of the abdomen. stoma measures approx 1. cleansed peristomal skin with warm water and Dial soap. rinsed and pat dry. applied small amount of stoma powder to the denuded skin. brushed off any excess. applied the Sensura appliance with an Sarwat ring. pt tolerated well. will monitor. pt states plan is to go to TCU for a short time at discharge.
[2019-02-12] MEDS: Ensure Clear 120 ML Liquid PO ×2 (08:50→14:39)
[2019-02-12] MEDS: Enoxaparin 40 MG/0.4 ML Syringe SC (08:51)
[2019-02-12] MEDS: Megestrol 40 MG Tablet 160 MG PO ×4 (08:51→22:16)
--- NOTE | 2019-02-12 09:50 | NS ---
Per Dr. Lucio - pt to be on calorie count starting today - notified dietary - will follow up with results of day #1 tomorrow.
[2019-02-12 10:02] VITALS: BP 108/61; PULSE 86; RESP 18; TEMP 36.6; O2SAT 95
--- NOTE | 2019-02-12 13:30 | CASEMGMT ---
Social Work Note SW met with pt to confirm discharge plans and to provide support regarding new diagnosis of cancer. Pt is more awake, alert and orientated x4. SW introduced self and role at [facility] again. Pt confirms is still agreeable to TCU. SW informed pt that TCU is able to accept pt tomorrow. Pt states concerns with her diet has Dr. Schmidt informed her that she needed to eat fat foods. SW encouraged to ask her RN about her diet as this worker doesn't deal with pt's diets. ELVA spent much time with pt offering support regarding cancer diagnosis. Pt states that she was recently diagnosed with cancer and still has hope that she will be able to fight the cancer. SW reviewed H+P, pt was diagnosed with pelvic mass December 31 and January 04 was diagnosed with colon cancer, mets to Omentum, left ovary, and abdominal wall. ELVA offered support to pt. Pt states that her is good support for her. Pt denied any additional support, states that all of their other family and friends are older and she doesn't want to burden them. Pt thanked this worker for talking to her and listening to her. Pt denied any additional needs or concerns at this time. Denied additional resources at this time. Plan: Pt to discharge to TCU tomorrow Virginia Quintana OB TECH, PODOPEDIATRICIAN
--- NOTE | 2019-02-12 14:30 | PN_ITS ---
Subjective: Patient seen and examined. States she has been eating better. Denies nausea, vomiting. She reports she ate her entire breakfast. SNF pre-cert pending. - Physical Exam General: Alert, Oriented x3, Cooperative, - - Cachectic HEENT: Atraumatic, PERRLA, EOMI, Normocephalic Neck: Supple, No JVD, Negative Carotid Bruits Lungs: Clear to auscultation, Normal air movement Cardiovascular: Regular rate, Regular Rhythm, Normal S1, Normal S2, No murmurs Abdomen: Bowel Sounds Present, Soft, Non Tender, Non-Distended Extremities: No clubbing, No cyanosis, No edema, Capillary Refill Less than 3 Seconds Skin: No rashes, No breakdown Musculoskeletal: No Tenderness to Palpation of Joints or Extremities Neurological: Cranial nerves II-XII grossly intact, Neuro grossly intact Psych/Mental Status: Flat Affect Vital Signs Temp Pulse Resp BP Pulse Ox 97.8 F 86 18 108/61 95 02/12/19 10:02 02/12/19 10:02 02/12/19 10:02 02/12/19 10:02 02/12/19 10:02 Oxygen Delivery Method Room Air Weight: 93 lb 3.2 oz Body Mass Index (BMI) 18.1 Intake and Output for Last 24 Hours 02/10/19 02/11/19 02/12/19 23:59 23:59 23:59 Intake Total 3625 / 3625 1804 / 1804 Output Total 253 / 253 175 / 175 Balance 3372 / 3372 1629 / 1629 Medical Necessity - Tobacco Use Smoking Status: Never smoker Assessment/Plan All Active Problems (Last Reviewed 01/30/19 @ 09:08 by Tamra Beltran) MARJORIE (acute kidney injury) (Acute) Hyponatremia with decreased serum osmolality (Acute) 1. Acute kidney injury on suspected chronic kidney disease stage III-secondary to dehydration as a result of poor oral intake. Resolved with IV fluids. Trend BMP. 2. Hypovolemic hyponatremia-improved with IV fluids. Trend BMP. 3. Metastatic colon cancer status post debulking surgery and right ileostomy 01/04/19 at [facility]-following with Dr. Horowitz, possible chemo initiation if patient is able to gain weight. 4. Severe protein calorie malnutrition-BMI 18. Nutrition consult. Continue Remeron, Megace for appetite stimulant. 5. Generalized weakness/debility secondary to metastatic colon cancer- PT/OT. SNF pending pre-cert. 6. Hypokalemia-replace per protocol. Trend BMP. DVT prophylaxis-Lovenox subcu Discharge planning: SNF pending pre-cert. This patient was seen by NATALIA Tinajero under the supervision of Dr. Lucio.
[2019-02-12 16:07] VITALS: BP 136/65; PULSE 97; RESP 18; TEMP 36.8; O2SAT 100
[2019-02-12 20:15] VITALS: BP 111/58; PULSE 99; RESP 18; TEMP 36.2; O2SAT 100
[2019-02-13 02:07] VITALS: BP 105/59; PULSE 92; RESP 16; TEMP 36.8; O2SAT 100
[2019-02-13] MEDS: 0.9% Normal Saline 1,000 ML 125 ML IV (03:56)
[2019-02-13] MEDS: Metoclopramide 10 MG/10 ML UDC 5 MG PO (05:45)
[2019-02-13 06:42] LABS: Anion Gap 5 (5-15); BUN 15 mg/dL (7-18); BUN/Creat Ratio 23.3 RATIO (10-20); Calcium,Total 7.2 mg/dL (8.5-10.1); Chloride 116 mmol/L (98-107); Creatinine, Serum 0.64 mg/dL (0.55-1.02); EST Glomerular Filtration Rate 97 mL/min (>60); Est Glom Filt Rate - Afr Amer 117 mL/min (>60); Estimated Creatinine Clearance 34.44 ml/min; Glucose 84 mg/dL (74-106); Potassium 3.5 mmol/L (3.5-5.1); Sodium Level 138 mmol/L (136-145)
[2019-02-13 07:44] VITALS: PULSE 100
--- NOTE | 2019-02-13 07:52 | PCM.TXEXTCAR ---
- Diet 02/10/19 18:07 Diet: Regular Diet - Routine Orders/Code Status Code Status: Full Code - Wound(s) coccyx Wound Type: Pressure Injury sacrum Wound Type: healed pressure injury left sacrum Dressing Change: Mepilex - Therapies Weight Bearing: Full weight bearing Physical Therapy: Eval and Treat Occupational Therapy: Eval and Treat - Allergies/Procedures Done in Hospital Allergies/Adverse Reactions: Allergies Penicillins Adverse Reaction (Intermediate, Verified 02/04/19 06:59) Rash ITCHY fluoxetine [From Prozac] Adverse Reaction (Verified 02/10/19 18:36) Other omeprazole [From Prilosec] Adverse Reaction (Verified 02/10/19 18:36) Other Procedures: None - Type of Care/Length of Stay Estimated LOS: Convalescent Care Less Than 30 days Type of Care Needed: Skilled Rehab Potential: Good Prognosis: Good - Additional Orders/Day of Discharge H&P will serve as current which was dated: 02/10/19 Day of Discharge: 02/13/19 - Dietary and Speech Recommendations Dietitian Recommendations/Changes: Will continue ensure clear w/ medpass per pt preference - Follow Up Care Primary Care Physician: Zarina Rhodes [Primary Care Provider] -
--- NOTE | 2019-02-13 09:12 | PCM.DC.SUM ---
Discharge Date and Diagnosis Date of Admission: 02/10/19 Date of Discharge: 02/13/19 - Primary Discharge Diagnosis 1. Acute kidney injury on suspected chronic kidney disease stage III 2. Hypovolemic hyponatremia 3. Metastatic colon cancer status post debulking surgery and right ileostomy 01/04/19 at [facility] 4. Severe protein calorie malnutrition 5. Generalized weakness/debility secondary to metastatic colon cancer 6. 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 No acute cardiopulmonary disease process is seen. Electronically Signed: Goldy Rivera MD at 16:41 EDT , Service support , Consultations 02/11/19 04:30 Consult: Onc/Wound/tennis player Routine Comment: Operations: None Procedures: None Summary of Care Provided: The patient is a 73 year old F admitted 02/10/2019 due to generalized weakness. 1. Acute kidney injury on suspected chronic kidney disease stage III-secondary to dehydration as a result of poor oral intake. Resolved with IV fluids. 2. Hypovolemic hyponatremia-improved with IV fluids. 3. Metastatic colon cancer status post debulking surgery and right ileostomy 01/04/19 at [facility]-following with Dr. Horowitz, possible chemo initiation if patient is able to gain weight. 4. Severe protein calorie malnutrition-BMI 18. Continue Remeron, Megace for appetite stimulant. 5. Generalized weakness/debility secondary to metastatic colon cancer- SNF recommended. Patient initially agreeable and then later declined and was persistent and going home with continued home health services and palliative care. 6. Hypokalemia-replaced per protocol, resolved. General: Alert, Oriented x3, Cooperative, Cachectic HEENT: Atraumatic, PERRLA, EOMI, Normocephalic Neck: Supple, No JVD, Negative Carotid Bruits Lungs: Clear to auscultation, Normal air movement Cardiovascular: Regular rate, Regular Rhythm, Normal S1, Normal S2, No murmurs Abdomen: Bowel Sounds Present, Soft, Non Tender, Non-Distended Extremities: No clubbing, No cyanosis, No edema, Capillary Refill Less than 3 Seconds Skin: No rashes, No breakdown Musculoskeletal: No Tenderness to Palpation of Joints or Extremities Neurological: Cranial nerves II-XII grossly intact, Neuro grossly intact Psych/Mental Status: Flat Affect Patient seen and examined prior to discharge. Physical assessment as noted above. Patient is stable for discharge with follow up recommendations as noted above. This patient was seen by NATALIA Tinajero under the supervision of Dr. Lucio. - Physical Exam Vital Signs Temp Pulse Resp BP Pulse Ox 98.3 F 100 16 105/59 L 100 02/13/19 02:07 02/13/19 07:44 02/13/19 02:07 02/13/19 02:07 02/13/19 02:07 Oxygen Delivery Method Room Air Weight: 93 lb 3.2 oz Body Mass Index (BMI) 18.1 Intake and Output for Last 24 Hours 02/11/19 02/12/19 02/13/19 23:59 23:59 23:59 Intake Total 3625 / 3625 3305 / 3305 1997 Output Total 253 / 253 175 / 175 825 / 825 Balance 3372 / 3372 3130 / 3130 1173 / 1173 Laboratory Tests Past 24 Hrs 02/13/19 05:54 Sodium 138 Potassium 3.5 Chloride 116 H Carbon Dioxide 17.0 L Anion Gap 5 BUN 15 Creatinine 0.64 Estim Creat Clear Calc 34.44 Est GFR (MDRD) Af Amer 117 Est GFR (MDRD) Non-Af 97 BUN/Creatinine Ratio 23.3 H Glucose 84 Calcium 7.2 L Discharge Diet: No Restrictions Discharge Activity: Return to Normal Activity Call your doctor if you observe: Shortness of breath, Dizziness, Fainting spells, Chest pain Home Medications: Medications to take at Discharge Acetaminophen [Tylenol Tablet] 650 mg PO Q6H PRN PRN tablet 02/13/19 Ensure Clear 120 ml PO 4X/DAY liquid 02/13/19 Megestrol Acetate [Megace Udc] 200 mg PO TIDCM #480 ml 02/13/19 Metoclopramide [Reglan Solution] 5 mg PO TID #90 udc 02/13/19 Following Prescrptions Were Given to Patient: Megestrol Acetate [Megace Udc] 200 mg PO TIDCM #480 ml Metoclopramide [Reglan Solution] 5 mg PO TID #90 udc Primary Care Physician: Zarina Rhodes [Primary Care Provider] - Please follow up with your Primary Care Physician in: 1 Week Please Follow Up With: Sahil Trejo DO When: Palliative care to follow at discharge Disposition: Home with Home Health Minutes spent on discharge:: 35 Patient Condition:: Fair Medical Necessity - Tobacco Use Smoking Status: Never smoker Meaningful Use Info Meaningful Use Diagnoses (Choose all that apply): None applicable
--- NOTE | 2019-02-13 09:16 | DS.PCM_ITS ---
Discharge Date and Diagnosis Date of Admission: 02/10/19 Date of Discharge: 02/13/19 - Primary Discharge Diagnosis 1. Acute kidney injury on suspected chronic kidney disease stage III 2. Hypovolemic hyponatremia 3. Metastatic colon cancer status post debulking surgery and right ileostomy 01/04/[address] [facility] 4. Severe protein calorie malnutrition 5. Generalized weakness/debility secondary to metastatic colon cancer 6. 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 No acute cardiopulmonary disease process is seen. 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 1. Acute kidney injury on suspected chronic kidney disease stage III-secondary to dehydration as a result of poor oral intake. Resolved with IV fluids. 2. Hypovolemic hyponatremia-improved with IV fluids. 3. Metastatic colon cancer status post debulking surgery and right ileostomy 01/04/[address] [facility]-following with Dr. Horowitz, possible chemo initiation if patient is able to gain weight. 4. Severe protein calorie malnutrition-BMI 18. Continue Remeron, Megace for appetite stimulant. 5. Generalized weakness/debility secondary to metastatic colon cancer- SNF recommended. Patient initially agreeable and then later declined and was persistent and going home with continued home health services and palliative care. 6. Hypokalemia-replaced per protocol, resolved. General: Alert, Oriented x3, Cooperative, Cachectic HEENT: Atraumatic, PERRLA, EOMI, Normocephalic Neck: Supple, No JVD, Negative Carotid Bruits Lungs: Clear to auscultation, Normal air movement Cardiovascular: Regular rate, Regular Rhythm, Normal S1, Normal S2, No murmurs Abdomen: Bowel Sounds Present, Soft, Non Tender, Non-Distended Extremities: No clubbing, No cyanosis, No edema, Capillary Refill Less than 3 Seconds Skin: No rashes, No breakdown Musculoskeletal: No Tenderness to Palpation of Joints or Extremities Neurological: Cranial nerves II-XII grossly intact, Neuro grossly intact Psych/Mental Status: Flat Affect Patient seen and examined prior to discharge. Physical assessment as noted above. Patient is stable for discharge with follow up recommendations as noted above. This patient was seen by NATALIA Tinajero under the supervision of Dr. Lucio. - Physical Exam Vital Signs Temp Pulse Resp BP Pulse Ox 98.3 F 100 16 105/59 L 100 02/13/19 02:07 02/13/19 07:44 02/13/19 02:07 02/13/19 02:07 02/13/19 02:07 Oxygen Delivery Method Room Air Weight: 93 lb 3.2 oz Body Mass Index (BMI) 18.1 Intake and Output for Last 24 Hours 02/11/19 02/12/19 02/13/19 23:59 23:59 23:59 Intake Total 3625 / 3625 3305 / 3305 1997 Output Total 253 / 253 175 / 175 825 / 825 Balance 3372 / 3372 3130 / 3130 1173 / 1173 Laboratory Tests Past 24 Hrs 02/13/19 05:54 Sodium 138 Potassium 3.5 Chloride 116 H Carbon Dioxide 17.0 L Anion Gap 5 BUN 15 Creatinine 0.64 Estim Creat Clear Calc 34.44 Est GFR (MDRD) Af Amer 117 Est GFR (MDRD) Non-Af 97 BUN/Creatinine Ratio 23.3 H Glucose 84 Calcium 7.2 L Discharge Diet: No Restrictions Discharge Activity: Return to Normal Activity Call your doctor if you observe: Shortness of breath, Dizziness, Fainting spells, Chest pain Home Medications: Medications to take at Discharge Acetaminophen [Tylenol Tablet] 650 mg PO Q6H PRN PRN tablet 02/13/19 Ensure Clear 120 ml PO 4X/DAY liquid 02/13/19 Megestrol Acetate [Megace Udc] 200 mg PO TIDCM #480 ml 02/13/19 Metoclopramide [Reglan Solution] 5 mg PO TID #90 udc 02/13/19 Following Prescrptions Were Given to Patient: Megestrol Acetate [Megace Udc] 200 mg PO TIDCM #480 ml Metoclopramide [Reglan Solution] 5 mg PO TID #90 udc Primary Care Physician: Zarina Rhodes [Primary Care Provider] - Please follow up with your Primary Care Physician in: 1 Week Please Follow Up With: Sahil Trejo DO When: Palliative care to follow at discharge Disposition: Home with Home Health Minutes spent on discharge:: 35 Patient Condition:: Fair Medical Necessity - Tobacco Use Smoking Status: Never smoker Meaningful Use Info Meaningful Use Diagnoses (Choose all that apply): None applicable
--- NOTE | 2019-02-13 09:28 | DCINST_ITS ---
You will use the following diet at home:: No restrictions Your food should be the consistency of: Regular Your liquids should be the consistency of: Regular/Thin Discharge Activity: Return to Normal Activity Weight Bearing Status: Full weight bearing Call your doctor if you observe: Shortness of breath, Dizziness, Fainting spells, Chest pain Allergies/Adverse Reactions: Allergies Penicillins Adverse Reaction (Intermediate, Verified 02/04/19 06:59) Rash ITCHY fluoxetine [From Prozac] Adverse Reaction (Verified 02/10/19 18:36) Other omeprazole [From Prilosec] Adverse Reaction (Verified 02/10/19 18:36) Other Medications to take at Discharge Acetaminophen [Tylenol Tablet] 650 mg PO Q6H PRN PRN tablet 02/13/19 Ensure Clear 120 ml PO 4X/DAY liquid 02/13/19 Megestrol Acetate [Megace Udc] 200 mg PO TIDCM #480 ml 02/13/19 Metoclopramide [Reglan Solution] 5 mg PO TID #90 udc 02/13/19 The following prescriptions were given: Megestrol Acetate [Megace Udc] 200 mg PO TIDCM #480 ml Metoclopramide [Reglan Solution] 5 mg PO TID #90 udc Primary Care Physician: Zarina Rhodes [Primary Care Provider] - Please follow up with your Primary Care Physician in: 1 Week Test Results: Test results from this visit will be discussed in further detail at your follow- up appointment, if applicable. Please Follow Up With: Sahil Trejo DO When: Palliative care to follow at discharge
--- NOTE | 2019-02-13 09:34 | CASEMGMT ---
Addendum entered by Virginia Quintana 02/13/19 10:21: ELVA placed a call to Jennifer at [facility], updated her that pt will be discharged home today. Original Note: Social Work Note Physician updated this worker that pt now wishes to discharge home with Palliative Care. ELVA placed a call to Valencia in TCU, left message, informing her pt will now be discharged home today. ELVA faxed discharge paperwork to [facility]. Plan: Pt to discharge home with Palliative Care Virginia Quintana INSTRUMENT SHOP SUPERVISOR, PACK TRAIN DRIVER
[2019-02-13] MEDS: Megestrol 40 MG Tablet 160 MG PO (09:47)
--- NOTE | 2019-02-14 15:00 | CASEMGMT ---
THOMAS CM DC PHONE CALL DC DATE: 02/13/19 DC Disposition: Home LACE/STRATA: 09/04 Attempted call to phone. No answer and message machine did not have identifier. Dominique ARMENTAN RN ACM
== END 2019-02-13 10:25 | disposition home or self-care (01) | DRG 682 ==
LOC: ED 17:32 → MS3 21:52
PROVIDERS: Nurse Practitioner Family; Admitting Provider Internal Medicine; Emergency Provider Emergency Medicine; Family Provider Family Medicine; PCP Family Medicine; Visit Provider Internal Medicine
DX: N17.9 Acute kidney failure, unspecified (principal); E43 Unspecified severe protein-calorie malnutrition; E87.1 Hypo-osmolality and hyponatremia; Z68.1 Body mass index [BMI] 19.9 or less, adult; C18.9 Malignant neoplasm of colon, unspecified; C79.60 Secondary malignant neoplasm of unspecified ovary; C78.6 Secondary malignant neoplasm of retroperitoneum and peritoneum; Z93.2 Ileostomy status; E87.6 Hypokalemia; N18.3 Chronic kidney disease, stage 3 (moderate); E86.0 Dehydration; Z51.5 Encounter for palliative care; R53.1 Weakness
CPT/HCPCS: 36415; 71045; 80048; 80053; 81001; 83690; 83735; 85025; 97162; 97166; 97530; 97535; 97802; 97803; 99284; J7030; J2405

== ENCOUNTER 2019-02-16 18:00 | Inpatient (IN) | payer MEDICARE, SELFPAY ==
[2019-02-10 18:14] VITALS: BMI 18.1
[2019-02-16 18:27] VITALS: BMI 18.7
--- NOTE | 2019-02-16 18:27 | NURSING ---
Patient admitted to room 20 from home, brought in by . Oriented to room and call light system explained.
[2019-02-16 18:28] VITALS: BP 102/61; PULSE 91; RESP 16; TEMP 36.4; O2SAT 98
--- NOTE | 2019-02-16 18:52 | PCM.HP.STD ---
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 The patient is a 73 year old Female with below past medical history presented to [facility] 02/10/2019 with weakness. Generalized weakness, stage 4 colon cancer. Tumor debulking, ileocolostomy 1 month prior at [facility]. Chemotherapy if she gains weight. Nausea, vomiting at home. Nausea medications not helpful. Hemoglobin 17, Sodium 123, Chloride 88, BUN 53, Cr 1.28 T Bili 1.2, ALT 199, AST 109. Normal Saline IV, Zofran, not eating well at home. 02/10/2019 Admit to Hospital. IV fluids for acute kidney injury. Dr. Horowitz chemotherapy if she gains weight. Danielle Romano for appetite stimulation. 02/12/2019 Acute Kidney injury with IV fluids. Eating better. 02/13/2019 TCU offered, patient declined. Patient discharged home. 02/16/2019 Failed discharge home with spouse. Admit to TCU with debility, here for rehabilitation, strengthening, prior to discharge home, possible chemotherapy in future. 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) Anemia (Chronic) Medical History: Medical History (Last Reviewed 01/30/19 @ 09:08 by Tamra Beltran) Colon cancer C18.9 Depression F32.9 Ileostomy present Z93.2 Irritable bowel syndrome (IBS) K58.9 Allergies Penicillins Adverse Reaction (Intermediate, Verified 02/04/19 06:59) Rash ITCHY fluoxetine [From Prozac] Adverse Reaction (Verified 02/10/19 18:36) Other omeprazole [From Prilosec] Adverse Reaction (Verified 02/10/19 18:36) Other Home Medications: Ambulatory Orders Medication Instructions Recorded Acetaminophen [Tylenol Tablet] 650 mg PO Q6H PRN PRN tablet 02/13/19 Ensure Clear 120 ml PO 4X/DAY 02/16/19 Megestrol Acetate [Megace Udc] 200 mg PO TIDCM MDD ' 02/16/19 Metoclopramide [Reglan Solution] 5 mg PO TID 02/16/19 Surgical History: Surgical History (Last Reviewed 01/30/19 @ 09:08 by Tamra Beltran) History of tonsillectomy Z90.89 Status post ileostomy Z93.2 01-04-19 exploratory laparotomy, tumor debulking, ileocecetomy with resection of large mass, primary bowel anastomosis, mobilization of hepatic flexure, bilateral salpingo-oophorectomy, diverting loop ileostomy Surgical History: tonsillectomy, - - Ileostomy, Colostomy, bilateral salpingo oopherectomy. 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 Paternal Family History: Family History (Last Updated 01/30/19 @ 09:52 by Tamra Beltran) Other No pertinent family history History Items: - - Denies known paternal medical history including cardiac history. Review of Systems Constitutional: Denies: Chills, Fever, Weight Change HEENT: Denies: Head Aches, Sinus Congestion, Sinus Drainage Cardiovascular: Denies: Chest Pain, Palpitations Respiratory: Denies: Cough, Shortness of breath at rest, Sputum production Gastrointestinal: Denies: Abdominal Pain, Nausea, Vomiting Genitourinary: Denies: Dysuria Musculoskeletal: Denies: Joint Pain, Joint Tenderness Skin: Denies: Rash, Wounds Neurological: Denies: Numbness, Tingling, Focal weakness Psychiatric: Denies: Anxiety, Depression, Homicidal Ideations, Suicidal Ideations Hematologic/ Lymphatic: Denies: Easy Bruising, Easy Bleeding VTE Information - Inpt Only VTE Present on Admission: No VTE Mechan Device Prophylaxis: Knee High MAYNOR Hose VTE Pharm Prophylaxis ordered?: Yes Patient Problems: Active and Suspected Problems (Last Reviewed 01/30/19 @ 09:08 by Tamra Beltran) Weakness (Acute) Appetite loss (Acute) - Physical Exam General: Alert, Oriented x3, Cooperative HEENT: Atraumatic, PERRLA, EOMI, Normocephalic Neck: Supple, No JVD, Negative Carotid Bruits Lungs: Clear to auscultation, Normal air movement Cardiovascular: Regular rate, No murmurs Abdomen: Bowel Sounds Present, Soft, Non Tender, - - colostomy present. Extremities: No edema, Capillary Refill Less than 3 Seconds Skin: No rashes, No breakdown Musculoskeletal: No Tenderness to Palpation of Joints or Extremities Neurological: Cranial nerves II-XII grossly intact Psych/Mental Status: Normal Affect, Appropriate Vital Signs Temp Pulse Resp BP Pulse Ox 97.6 F L 91 16 102/61 98 02/16/19 18:28 02/16/19 18:28 02/16/19 18:28 02/16/19 18:28 02/16/19 18:28 Oxygen Delivery Method Room Air Body Mass Index (BMI) 18.1 Intake and Output for Last 24 Hours 02/14/19 02/15/19 02/16/19 23:59 23:59 23:59 Intake Total 120 / 120 Balance 120 / 120 Assessment/Plan All Active Problems (Last Reviewed 01/30/19 @ 09:08 by Tamra Beltran) Weakness (Acute) Appetite loss (Acute) MARJORIE (acute kidney injury) (Acute) Hyponatremia with decreased serum osmolality (Acute) 73 year old female with below past medical history significant for stage 4 colon cancer, admitted to TCU with debility, here for rehabilitation, strengthening, prior to discharge home with spouse, possible chemotherapy in future with Dr. Horowitz. Debility - PT/OT. Pain - Tylenol 1000MG Q6H PRN mild pain. Bowel - Miralax 17GM daily, Senokot 1 tablet BID, Dulcolax 10MG daily PRN. Pneumonia vaccination - Administer Prevnar 13 and/or Pneumovax 23 as necessary. DVT prophylaxis - Lovenox 40MG SC daily. Nutrition - Ensure Clear 120ML 4x/day. Appetite loss - Megace 200MG TID. Nausea - Reglan 5MG TID. Metastatic colon cancer - Chemotherapy with Dr. Horowitz when functional status improved.
--- NOTE | 2019-02-16 19:02 | HP.PCM_ITS ---
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 The patient is a 73 year old Female with below past medical history presented to [facility] Emergency Department 02/10/2019 with weakness. Generalized weakness, stage 4 colon cancer. Tumor debulking, ileocolostomy 1 month prior at [facility]. Chemotherapy if she gains weight. Nausea, vomiting at home. Nausea medications not helpful. Hemoglobin 17, Sodium 123, Chloride 88, BUN 53, Cr 1.28 T Bili 1.2, ALT 199, AST 109. Normal Saline IV, Zofran, not eating well at home. 02/10/2019 Admit to Hospital. IV fluids for acute kidney injury. Dr. Horowitz chemotherapy if she gains weight. Danielle Romano for appetite stimulation. 02/12/2019 Acute Kidney injury with IV fluids. Eating better. 02/13/2019 TCU offered, patient declined. Patient discharged home. 02/16/2019 Failed discharge home with spouse. Admit to TCU with debility, here for rehabilitation, strengthening, prior to discharge home, possible chemotherapy in future. 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) Anemia (Chronic) Medical History: Medical History (Last Reviewed 01/30/19 @ 09:08 by Tamra Beltran) Colon cancer C18.9 Depression F32.9 Ileostomy present Z93.2 Irritable bowel syndrome (IBS) K58.9 Allergies Penicillins Adverse Reaction (Intermediate, Verified 02/04/19 06:59) Rash ITCHY fluoxetine [From Prozac] Adverse Reaction (Verified 02/10/19 18:36) Other omeprazole [From Prilosec] Adverse Reaction (Verified 02/10/19 18:36) Other Home Medications: Ambulatory Orders Medication Instructions Recorded Acetaminophen [Tylenol Tablet] 650 mg PO Q6H PRN PRN tablet 02/13/19 Ensure Clear 120 ml PO 4X/DAY 02/16/19 Megestrol Acetate [Megace Udc] 200 mg PO TIDCM MDD ' 02/16/19 Metoclopramide [Reglan Solution] 5 mg PO TID 02/16/19 Surgical History: Surgical History (Last Reviewed 01/30/19 @ 09:08 by Tamra Beltran) History of tonsillectomy Z90.89 Status post ileostomy Z93.2 01-04-19 exploratory laparotomy, tumor debulking, ileocecetomy with resection of large mass, primary bowel anastomosis, mobilization of hepatic flexure, bilateral salpingo-oophorectomy, diverting loop ileostomy Surgical History: tonsillectomy, - - Ileostomy, Colostomy, bilateral salpingo oopherectomy. 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 Paternal Family History: Family History (Last Updated 01/30/19 @ 09:52 by Tamra Beltran) Other No pertinent family history History Items: - - Denies known paternal medical history including cardiac history. Review of Systems Constitutional: Denies: Chills, Fever, Weight Change HEENT: Denies: Head Aches, Sinus Congestion, Sinus Drainage Cardiovascular: Denies: Chest Pain, Palpitations Respiratory: Denies: Cough, Shortness of breath at rest, Sputum production Gastrointestinal: Denies: Abdominal Pain, Nausea, Vomiting Genitourinary: Denies: Dysuria Musculoskeletal: Denies: Joint Pain, Joint Tenderness Skin: Denies: Rash, Wounds Neurological: Denies: Numbness, Tingling, Focal weakness Psychiatric: Denies: Anxiety, Depression, Homicidal Ideations, Suicidal Ideations Hematologic/ Lymphatic: Denies: Easy Bruising, Easy Bleeding VTE Information - Inpt Only VTE Present on Admission: No VTE Mechan Device Prophylaxis: Knee High MAYNOR Hose VTE Pharm Prophylaxis ordered?: Yes Patient Problems: Active and Suspected Problems (Last Reviewed 01/30/19 @ 09:08 by Tamra Beltran) Weakness (Acute) Appetite loss (Acute) - Physical Exam General: Alert, Oriented x3, Cooperative HEENT: Atraumatic, PERRLA, EOMI, Normocephalic Neck: Supple, No JVD, Negative Carotid Bruits Lungs: Clear to auscultation, Normal air movement Cardiovascular: Regular rate, No murmurs Abdomen: Bowel Sounds Present, Soft, Non Tender, - - colostomy present. Extremities: No edema, Capillary Refill Less than 3 Seconds Skin: No rashes, No breakdown Musculoskeletal: No Tenderness to Palpation of Joints or Extremities Neurological: Cranial nerves II-XII grossly intact Psych/Mental Status: Normal Affect, Appropriate Vital Signs Temp Pulse Resp BP Pulse Ox 97.6 F L 91 16 102/61 98 02/16/19 18:28 02/16/19 18:28 02/16/19 18:28 02/16/19 18:28 02/16/19 18:28 Oxygen Delivery Method Room Air Body Mass Index (BMI) 18.1 Intake and Output for Last 24 Hours 02/14/19 02/15/19 02/16/19 23:59 23:59 23:59 Intake Total 120 / 120 Balance 120 / 120 Assessment/Plan All Active Problems (Last Reviewed 01/30/19 @ 09:08 by Tamra Beltran) Weakness (Acute) Appetite loss (Acute) MARJORIE (acute kidney injury) (Acute) Hyponatremia with decreased serum osmolality (Acute) 73 year old female with below past medical history significant for stage 4 colon cancer, admitted to TCU with debility, here for rehabilitation, strengthening, prior to discharge home with spouse, possible chemotherapy in future with Dr. Horowitz. * Debility - PT/OT. * Pain - Tylenol 1000MG Q6H PRN mild pain. * Bowel - Miralax 17GM daily, Senokot 1 tablet BID, Dulcolax 10MG daily PRN. * Pneumonia vaccination - Administer Prevnar 13 and/or Pneumovax 23 as necessary. * DVT prophylaxis - Lovenox 40MG SC daily. * Nutrition - Ensure Clear 120ML 4x/day. * Appetite loss - Megace 200MG TID. * Nausea - Reglan 5MG TID. * Metastatic colon cancer - Chemotherapy with Dr. Horowitz when functional status improved.
[2019-02-16 19:53] VITALS: BMI 18.7
[2019-02-16 21:52] VITALS: PULSE 86; O2SAT 98
--- NOTE | 2019-02-17 01:23 | NURSING ---
Pt's ileostomy leaking at this time. New appliance applied.
[2019-02-17] MEDS: Nystatin Powder 15gm Bottle 1 APPLIC TOPICAL ×2 (06:27→16:11)
[2019-02-17] MEDS: Menthol/Lanolin/Calamine/Znox 113 GM Tube 1 APPLIC TOPICAL ×2 (06:27→16:11)
--- NOTE | 2019-02-17 06:28 | NURSING ---
Pt refusing Reglan this morning stating I am on a wholistic diet and no longer taking those meds.
[2019-02-17 07:11] LABS: Absolute Lymphocyte Count 1.44 X10^3/ul (0.83-4.51); Absolute Neutrophil Count 3.5 X10^3/uL (2.0-7.7); Basophil# 0.02 X10^3/uL; Basophil% 0.4 % (0-1); Eosinophil# 0.25 X10^3/uL; Eosinophils% 4.5 % (0-5); Hematocrit 38.3 % (37-47); Hemoglobin 12.7 g/dl (12.0-15.0); Lymphocyte # 1.44 X10^3/ul (4.0); Lymphocyte % 25.7 % (19-41); Mean Corp Hgb Conc 33.2 g/gl (32-36); Mean Corpuscular Hgb 28.5 pg (27.0-32.0); Mean Corpuscular Volume 85.9 fL (81-99); Mean Platelet Vol. 9.6 fl (6.2-12.0); Monocyte# 0.39 X10^3/uL; Neutrophil # 3.51 X10^3/uL (2.7-7.7); Neutrophil % 62.4 % (47-70); Platelet Count 272 K/mm3 (150-450); RBC Distribution Width CV 19.5 % (11.6-14.6); RBC Distribution Width SD 61.2 fl (35.1-43.9); Red Blood Count 4.46 M/mm3 (4.2-5.4); White Blood Count 5.6 K/mm3 (4.4-11.0)
[2019-02-17 07:12] LABS: POSITIVE COUNT NO; POSITIVE DIFFERENTIAL NO; POSITIVE MORPHOLOGY NO
--- NOTE | 2019-02-17 07:13 | NURSING ---
0500 ileostomy pouch leaking. old pouch removed. entire pouching surface denuded and seeping. stoma beefy red and moist. functioning lumen at surface level at 0600. skin cleansed, stomahesive powder applied and pouched with jacqueline ring and cut to fit coloplast one piece pouch.
[2019-02-17 07:39] LABS: Anion Gap 13 (5-15); BUN 32 mg/dL (7-18); Calcium,Total 7.6 mg/dL (8.5-10.1); Chloride 110 mmol/L (98-107); Creatinine, Serum 0.73 mg/dL (0.55-1.02); EST Glomerular Filtration Rate 84 mL/min (>60); Est Glom Filt Rate - Afr Amer 101 mL/min (>60); Estimated Creatinine Clearance 35.47 ml/min; Glucose 113 mg/dL (74-106); Potassium 3.2 mmol/L (3.5-5.1); Sodium Level 141 mmol/L (136-145)
[2019-02-17] MEDS: Ensure Clear 120 ML Liquid PO ×2 (11:20→20:31)
[2019-02-17] MEDS: Tuberculin,Purif.prot.deriv. 50 TU/ML Vial 5 ML ID (11:21)
--- NOTE | 2019-02-17 14:04 | NURSING ---
New order for potassium 40mEq x1, recheck BMP in AM. Patient continues to refuse reglan and Megace. Ileostomy bag changed.
--- NOTE | 2019-02-17 14:57 | NURSING ---
Patient's ileostomy leaked through wafer, new appliance applied. Patient tolerated well.
[2019-02-17 16:00] VITALS: BP 136/75; PULSE 91; RESP 18; TEMP 36.6; O2SAT 99
--- NOTE | 2019-02-17 16:12 | NURSING ---
Patient refusing stool softener, megace and lovenox. States she does not like to take medications and will walk around plenty to prevent blood clots. Attempted to explain benefits of medications to patient, continued to refuse.
--- NOTE | 2019-02-17 21:09 | NURSING ---
Ileostomy changed d/t leaking out of left side into skin crease, brown mostly liquid stool. Used supplies of patients. Assisted by Gracy PENA. Pt resting comfortably at this time, continuing to check and empty bag every 30-45 minutes. Pt refusing ensure believing this is causing it to leak and further irritate surrounding skin. RN aware, continuing to monitor.
--- NOTE | 2019-02-17 23:08 | NURSING ---
Ileostomy changed again after pt called out saying it was leaking after she transferred self to bathroom. It had been checked by staff 10 minutes prior and it was not leaking. Area cleaned and new appliance applied. Surrounding skin very red and inflamed, moist, making it difficult for bag to stick. Pt also lying on side causing crease in stomach, states she is uncomfortable lying on back. Continuing to check every 30 minutes. RN aware.
--- NOTE | 2019-02-18 05:35 | NURSING ---
Ileostomy bag changed approx 0300 with assist of Jeniffer Marinelli RN. New appliance applied after current one started leaking. Surrounding skin very red and inflamed. Pt c/o not sleeping much d/t bag requiring change so often. Continuing to monitor.
[2019-02-18 05:50] LABS: Anion Gap 10 (5-15); BUN 27 mg/dL (7-18); BUN/Creat Ratio 38.6 RATIO (10-20); Calcium,Total 7.5 mg/dL (8.5-10.1); Chloride 111 mmol/L (98-107); EST Glomerular Filtration Rate 88 mL/min (>60); Est Glom Filt Rate - Afr Amer 106 mL/min (>60); Estimated Creatinine Clearance 35.47 ml/min; Glucose 101 mg/dL (74-106); Potassium 3.5 mmol/L (3.5-5.1); Sodium Level 139 mmol/L (136-145)
--- NOTE | 2019-02-18 06:20 | NURSING ---
Pt upset this morning about not being up ad nilam. Explained the importance of staff member being present while pt transfers in room and from br for safety purposes. Pt stating she understands. Will continue to monitor.
[2019-02-18] MEDS: Menthol/Lanolin/Calamine/Znox 113 GM Tube 1 APPLIC TOPICAL ×2 (06:32→18:03)
[2019-02-18] MEDS: Nystatin Powder 15gm Bottle 1 APPLIC TOPICAL ×2 (06:32→18:03)
--- NOTE | 2019-02-18 06:55 | NURSING ---
Pt's ileostomy remains intact at this time.
[2019-02-18] MEDS: Cholestyramine/Sucrose 4 GM/PACKET PO (10:11)
--- NOTE | 2019-02-18 10:16 | PCM.PN.RX ---
<Jamie Nagel - Last Filed: 02/18/19 10:16> Progress Note - Pharmacy Subjective: [] TCU Admission Objective: Allergies Penicillins Adverse Reaction (Intermediate, Verified 02/04/19 06:59) Rash ITCHY fluoxetine [From Prozac] Adverse Reaction (Verified 02/10/19 18:36) Other omeprazole [From Prilosec] Adverse Reaction (Verified 02/10/19 18:36) Other Current Medications Generic Name Dose Route Start Last Admin Trade Name Freq PRN Reason Stop Dose Admin Acetaminophen 1,000 mg 02/16/19 19:11 Tylenol PO Q6H PRN PRN MILD PAIN (1-310) Bisacodyl 10 mg 02/16/19 19:10 Dulcolax PO DAILY PRN Constipation Calamine/Phenol 1 applic 02/17/19 06:00 02/18/19 06:32 Calmoseptine Ointment TOPICAL 1 applicatio BID [facility] Administration Protocol Cholestyramine Resin 4 gm 02/19/19 07:00 Questran 4gm Packet PO DAILY@0700 [facility] Enoxaparin Sodium 40 mg 02/17/19 16:00 02/18/19 06:32 Lovenox SC Not Given DAILY@0600 [facility] Megestrol Acetate 200 mg 02/17/19 07:45 02/18/19 07:55 Megace Udc PO Not Given TIDCM [facility] Metoclopramide HCl 5 mg 02/16/19 22:00 02/18/19 06:32 Reglan PO Not Given TID [facility] Nutritional Formula (Lactose Free) 120 ml 02/16/19 22:00 02/18/19 06:32 Ensure Clear PO Not Given 4X/DAY [facility] Nystatin 1 applic 02/17/19 06:00 02/18/19 06:32 Mycostatin Powder TOPICAL 1 applicatio BID [facility] Administration Protocol Tuberculin PPD 5 tu 02/24/19 10:00 Tubersol, Aplisol, Ppd ID 02/24/19 10:01 X1 ONE Problem List (Last Reviewed 01/30/19 @ 09:08 by Tamra Beltran) Weakness (Acute) Metastatic colon cancer in female (Chronic) Appetite loss (Acute) Depression (Chronic) Vital Signs Temp Pulse Resp BP Pulse Ox 97.8 F 91 18 136/75 H 99 02/17/19 16:00 02/17/19 16:00 02/17/19 16:00 02/17/19 16:00 02/17/19 16:00 Oxygen Delivery Method Room Air Weight: 43.545 kg Body Mass Index (BMI) 18.7 Sodium 139 mmol/L (136-145) 02/18/19 05:20 Potassium 3.5 mmol/L (3.5-5.1) 02/18/19 05:20 Chloride 111 mmol/L (98-107) H 02/18/19 05:20 Carbon Dioxide 18.0 mmol/L (21.0-32.0) L 02/18/19 05:20 Anion Gap 10 (5-15) 02/18/19 05:20 BUN 27 mg/dL (7-18) H 02/18/19 05:20 Creatinine 0.70 mg/dL (0.55-1.02) 02/18/19 05:20 Est GFR (MDRD) Af Amer 106 mL/min (>60) 02/18/19 05:20 Est GFR (MDRD) Non-Af 88 mL/min (>60) 02/18/19 05:20 BUN/Creatinine Ratio 38.6 RATIO (10-20) H 02/18/19 05:20 Glucose 101 mg/dL (74-106) 02/18/19 05:20 Assessment/Plan: 1) Pain: Acetaminophen 1000mg po q6h prn for mild pain. Please continue to monitor prn usage, and for signs/symptoms of increased/decreased pain. 2) DVT Prophylaxis: Lovenox 40mg subq daily. Pt's SrCr is 0.7, CrCl is 35.47. Please continue to monitor. Pt's H+H is 12.7 and 38.3, and Plt are 272. Please continue to monitor. 3) Nausea: Metoclopramide 5mg po tid, Appetite loss: Megestrol 200mg po tid with food. Pt is to receive weekly weights. Last weight was 43.5kg on 02/16/19. Please continue to monitor. Megestrol has safe handling precautions. Please continue to follow protocol. Psychotropic Medications: none Unnecessary Medications: none Bowel Regimen: Bisacodyl 10mg po daily prn constipation. Please continue to monitor for signs/symptoms of constipation/diarrhea Date of Note:: 02/18/19 - Provider Comments Provider responsibility: Provider responsible to enter orders to implement recommendations <Ha Gordon Chi - Last Filed: 02/18/19 17:03> Progress Note - Pharmacy Subjective: [] Objective: Allergies Penicillins Adverse Reaction (Intermediate, Verified 02/04/19 06:59) Rash ITCHY fluoxetine [From Prozac] Adverse Reaction (Verified 02/10/19 18:36) Other omeprazole [From Prilosec] Adverse Reaction (Verified 02/10/19 18:36) Other Current Medications Generic Name Dose Route Start Last Admin Trade Name Freq PRN Reason Stop Dose Admin Acetaminophen 1,000 mg 02/16/19 19:11 Tylenol PO Q6H PRN PRN MILD PAIN (1-10) Bisacodyl 10 mg 02/16/19 19:10 Dulcolax PO DAILY PRN Constipation Calamine/Phenol 1 applic 02/17/19 06:00 02/18/19 06:32 Calmoseptine Ointment TOPICAL 1 applicatio BID [facility] Administration Protocol Cholestyramine Resin 4 gm 02/19/19 07:00 Questran 4gm Packet PO DAILY@0700 [facility] Enoxaparin Sodium 40 mg 02/17/19 16:00 02/18/19 06:32 Lovenox SC Not Given DAILY@0600 [facility] Megestrol Acetate 200 mg 02/17/19 07:45 02/18/19 11:45 Megace Udc PO Not Given TIDCM [facility] Metoclopramide HCl 5 mg 02/16/19 22:00 02/18/19 11:46 Reglan PO Not Given TID [facility] Nutritional Formula (Lactose Free) 120 ml 02/18/19 12:00 02/18/19 11:44 Ensure Enlive PO 120 ml 4X/DAY [facility] Administration Nystatin 1 applic 02/17/19 06:00 02/18/19 06:32 Mycostatin Powder TOPICAL 1 applicatio BID [facility] Administration Protocol Tuberculin PPD 5 tu 02/24/19 10:00 Tubersol, Aplisol, Ppd ID 02/24/19 10:01 X1 ONE Problem List (Last Reviewed 01/30/19 @ 09:08 by Tamra Beltran) Weakness (Acute) Metastatic colon cancer in female (Chronic) Appetite loss (Acute) Depression (Chronic) Vital Signs Temp Pulse Resp BP Pulse Ox 98 F 96 16 117/71 98 05/20/19 15:24 02/18/19 15:24 02/18/19 15:24 02/18/19 15:24 02/18/19 15:24 Oxygen Delivery Method Room Air Weight: 43.545 kg Body Mass Index (BMI) 18.7 Sodium 139 mmol/L (136-145) 02/18/19 05:20 Potassium 3.5 mmol/L (3.5-5.1) 02/18/19 05:20 Chloride 111 mmol/L (98-107) H 02/18/19 05:20 Carbon Dioxide 18.0 mmol/L (21.0-32.0) L 02/18/19 05:20 Anion Gap 10 (5-15) 02/18/19 05:20 BUN 27 mg/dL (7-18) H 02/18/19 05:20 Creatinine 0.70 mg/dL (0.55-1.02) 02/18/19 05:20 Est GFR (MDRD) Af Amer 106 mL/min (>60) 02/18/19 05:20 Est GFR (MDRD) Non-Af 88 mL/min (>60) 02/18/19 05:20 BUN/Creatinine Ratio 38.6 RATIO (10-20) H 02/18/19 05:20 Glucose 101 mg/dL (74-106) 02/18/19 05:20 Assessment/Plan: Psychotropic Medications: Unnecessary Medications: Bowel Regimen: - Provider Comments Provider responsibility: Provider responsible to enter orders to implement recommendations Provider Comments to Recommendations by Pharmacy: Agree
--- NOTE | 2019-02-18 10:44 | PHA.CONS_ITS ---
<Jamie Nagel - Last Filed: 02/18/19 10:16> Progress Note - Pharmacy Subjective: [] TCU Admission Objective: Allergies Penicillins Adverse Reaction (Intermediate, Verified 02/04/19 06:59) Rash ITCHY fluoxetine [From Prozac] Adverse Reaction (Verified 02/10/19 18:36) Other omeprazole [From Prilosec] Adverse Reaction (Verified 02/10/19 18:36) Other Current Medications Generic Name Dose Route Start Last Admin Trade Name Freq PRN Reason Stop Dose Admin Acetaminophen 1,000 mg 02/16/19 19:11 Tylenol PO Q6H PRN PRN MILD PAIN (1-310) Bisacodyl 10 mg 02/16/19 19:10 Dulcolax PO DAILY PRN Constipation Calamine/Phenol 1 applic 02/17/19 06:00 02/18/19 06:32 Calmoseptine Ointment TOPICAL 1 applicatio BID [facility] Administration Protocol Cholestyramine Resin 4 gm 02/19/19 07:00 Questran 4gm Packet PO DAILY@0700 [facility] Enoxaparin Sodium 40 mg 02/17/19 16:00 02/18/19 06:32 Lovenox SC Not Given DAILY@0600 [facility] Megestrol Acetate 200 mg 02/17/19 07:45 02/18/19 07:55 Megace Udc PO Not Given TIDCM [facility] Metoclopramide HCl 5 mg 02/16/19 22:00 02/18/19 06:32 Reglan PO Not Given TID [facility] Nutritional Formula (Lactose Free) 120 ml 02/16/19 22:00 02/18/19 06:32 Ensure Clear PO Not Given 4X/DAY [facility] Nystatin 1 applic 02/17/19 06:00 02/18/19 06:32 Mycostatin Powder TOPICAL 1 applicatio BID [facility] Administration Protocol Tuberculin PPD 5 tu 02/24/19 10:00 Tubersol, Aplisol, Ppd ID 02/24/19 10:01 X1 ONE Problem List (Last Reviewed 01/30/19 @ 09:08 by Tmara Beltran) Weakness (Acute) Metastatic colon cancer in female (Chronic) Appetite loss (Acute) Depression (Chronic) Vital Signs Temp Pulse Resp BP Pulse Ox 97.8 F 91 18 136/75 H 99 02/17/19 16:00 02/17/19 16:00 02/17/19 16:00 02/17/19 16:00 02/17/19 16:00 Oxygen Delivery Method Room Air Weight: 43.545 kg Body Mass Index (BMI) 18.7 Sodium 139 mmol/L (136-145) 02/18/19 05:20 Potassium 3.5 mmol/L (3.5-5.1) 02/18/19 05:20 Chloride 111 mmol/L (98-107) H 02/18/19 05:20 Carbon Dioxide 18.0 mmol/L (21.0-32.0) L 02/18/19 05:20 Anion Gap 10 (5-15) 02/18/19 05:20 BUN 27 mg/dL (7-18) H 02/18/19 05:20 Creatinine 0.70 mg/dL (0.55-1.02) 02/18/19 05:20 Est GFR (MDRD) Af Amer 106 mL/min (>60) 02/18/19 05:20 Est GFR (MDRD) Non-Af 88 mL/min (>60) 02/18/19 05:20 BUN/Creatinine Ratio 38.6 RATIO (10-20) H 02/18/19 05:20 Glucose 101 mg/dL (74-106) 02/18/19 05:20 Assessment/Plan: 1) Pain: Acetaminophen 1000mg po q6h prn for mild pain. Please continue to monitor prn usage, and for signs/symptoms of increased/decreased pain. 2) DVT Prophylaxis: Lovenox 40mg subq daily. Pt's SrCr is 0.7, CrCl is 35.47. Please continue to monitor. Pt's H+H is 12.7 and 38.3, and Plt are 272. Please continue to monitor. 3) Nausea: Metoclopramide 5mg po tid, Appetite loss: Megestrol 200mg po tid with food. Pt is to receive weekly weights. Last weight was 43.5kg on 02/16/19. Please continue to monitor. Megestrol has safe handling precautions. Please continue to follow protocol. Psychotropic Medications: none Unnecessary Medications: none Bowel Regimen: Bisacodyl 10mg po daily prn constipation. Please continue to monitor for signs/symptoms of constipation/diarrhea Date of Note:: 02/18/19 - Provider Comments Provider responsibility: Provider responsible to enter orders to implement recommendations <Ha Gordon Chi - Last Filed: 02/18/19 17:03> Progress Note - Pharmacy Subjective: [] Objective: Allergies Penicillins Adverse Reaction (Intermediate, Verified 02/04/19 06:59) Rash ITCHY fluoxetine [From Prozac] Adverse Reaction (Verified 02/10/19 18:36) Other omeprazole [From Prilosec] Adverse Reaction (Verified 02/10/19 18:36) Other Current Medications Generic Name Dose Route Start Last Admin Trade Name Freq PRN Reason Stop Dose Admin Acetaminophen 1,000 mg 02/16/19 19:11 Tylenol PO Q6H PRN PRN MILD PAIN (1-10) Bisacodyl 10 mg 02/16/19 19:10 Dulcolax PO DAILY PRN Constipation Calamine/Phenol 1 applic 02/17/19 06:00 02/18/19 06:32 Calmoseptine Ointment TOPICAL 1 applicatio BID [facility] Administration Protocol Cholestyramine Resin 4 gm 02/19/19 07:00 Questran 4gm Packet PO DAILY@0700 [facility] Enoxaparin Sodium 40 mg 02/17/19 16:00 02/18/19 06:32 Lovenox SC Not Given DAILY@0600 [facility] Megestrol Acetate 200 mg 02/17/19 07:45 02/18/19 11:45 Megace Udc PO Not Given TIDCM [facility] Metoclopramide HCl 5 mg 02/16/19 22:00 02/18/19 11:46 Reglan PO Not Given TID [facility] Nutritional Formula (Lactose Free) 120 ml 02/18/19 12:00 02/18/19 11:44 Ensure Enlive PO 120 ml 4X/DAY [facility] Administration Nystatin 1 applic 02/17/19 06:00 02/18/19 06:32 Mycostatin Powder TOPICAL 1 applicatio BID [facility] Administration Protocol Tuberculin PPD 5 tu 02/24/19 10:00 Tubersol, Aplisol, Ppd ID 02/24/19 10:01 X1 ONE Problem List (Last Reviewed 01/30/19 @ 09:08 by Tamra Beltran) Weakness (Acute) Metastatic colon cancer in female (Chronic) Appetite loss (Acute) Depression (Chronic) Vital Signs Temp Pulse Resp BP Pulse Ox 98 F 96 16 117/71 98 05/20/19 15:24 02/18/19 15:24 02/18/19 15:24 02/18/19 15:24 02/18/19 15:24 Oxygen Delivery Method Room Air Weight: 43.545 kg Body Mass Index (BMI) 18.7 Sodium 139 mmol/L (136-145) 02/18/19 05:20 Potassium 3.5 mmol/L (3.5-5.1) 02/18/19 05:20 Chloride 111 mmol/L (98-107) H 02/18/19 05:20 Carbon Dioxide 18.0 mmol/L (21.0-32.0) L 02/18/19 05:20 Anion Gap 10 (5-15) 02/18/19 05:20 BUN 27 mg/dL (7-18) H 02/18/19 05:20 Creatinine 0.70 mg/dL (0.55-1.02) 02/18/19 05:20 Est GFR (MDRD) Af Amer 106 mL/min (>60) 02/18/19 05:20 Est GFR (MDRD) Non-Af 88 mL/min (>60) 02/18/19 05:20 BUN/Creatinine Ratio 38.6 RATIO (10-20) H 02/18/19 05:20 Glucose 101 mg/dL (74-106) 02/18/19 05:20 Assessment/Plan: Psychotropic Medications: Unnecessary Medications: Bowel Regimen: - Provider Comments Provider responsibility: Provider responsible to enter orders to implement recommendations Provider Comments to Recommendations by Pharmacy: Agree
--- NOTE | 2019-02-18 10:47 | NURSING ---
In to assess the ileostomy appliance. the appliance had been changed approx 7 times this weekend. appliance is intact at this time. no signs of leak. the [facility] rep is bringing some samples of a flexible convex appliance tomorrow. patient has tried numerous different appliances. stool has been very watery and appliance has needed to be emptied often. Pt was started on Questran today. will monitor for leaks. peristomal skin has been very denuded from all the leaks.
--- NOTE | 2019-02-18 11:45 | NURSING ---
Pt continues to refuse megace. States her appetite is improving. Is eating chicken nuggets for lunch at this time and states she is getting subway for supper. Takes chocolate ensure.
[2019-02-18 15:24] VITALS: BP 117/71; PULSE 96; RESP 16; TEMP 36.6; O2SAT 98
--- NOTE | 2019-02-18 16:57 | NURSING ---
Off unit eating supper.
[2019-02-19] MEDS: Cholestyramine/Sucrose 4 GM/PACKET PO (06:25)
[2019-02-19] MEDS: Menthol/Lanolin/Calamine/Znox 113 GM Tube 1 APPLIC TOPICAL ×2 (06:29→18:16)
[2019-02-19] MEDS: Enoxaparin 40 MG/0.4 ML Syringe SC (06:29)
[2019-02-19] MEDS: Nystatin Powder 15gm Bottle 1 APPLIC TOPICAL ×2 (06:29→18:04)
--- NOTE | 2019-02-19 08:22 | NURSING ---
Was called by nursing staff that the ileostomy appliance was leaking. appliance leaking at the 9 o'clock position. removed appliance. peristomal skin is very denuded. gently cleansed with soap and warm water. rinsed and pat dry. applied stoma powder to the denuded skin. stoma measures approx 7/8 and sits just above the skin level. pt could benefit from a soft convex appliance. appliance needs to be very flexible because stoma sits in an abdominal fold. have a [facility] rep coming today to bring samples of a new soft convex appliance to try for patient. for now, applied a 1 piece flat [place] appliance with stoma paste. did place some Hollihesive to the 3 and 9 o'clock positions to fill in the crease. will closely monitor for leaks. pt tolerated well.
--- NOTE | 2019-02-19 15:12 | CHAPLAIN ---
Type of Pastoral Visit _x__ Initial Visit ___ Follow-up Visit ___ On-call Visit ___ General Patient Visit ___ Spiritual Assessment ___ Family Conference ___ Bereavement ___ Rapid Response ___ Code Blue ___ Other (describe below) Pastoral Care Referral From _x__ Patient ___ Family _x__ Nurse ___ Physician ___ Cutting Department Supervisor ___ Assistant Professor Of Geography ___ Other (describe below) Sacrament/Intervention _x__ Active listening ___ Anointing ___ Christianity ___ Bereavement ___ Communion _x__ Ginny exploration ___ _x__ Life review _x__ Prayer ___ Reconciliation ___ Sacrament of Sick _x__ Supportive presence ___ Wedding ___ Other (describe below) Pastoral Comments patient and spouse are both talkative; pt invites tray checker for further visits in the future
[2019-02-19 15:54] VITALS: BP 98/55; PULSE 90; RESP 16; TEMP 36.8; O2SAT 98
[2019-02-20] MEDS: Cholestyramine/Sucrose 4 GM/PACKET PO (05:14)
[2019-02-20] MEDS: Menthol/Lanolin/Calamine/Znox 113 GM Tube 1 APPLIC TOPICAL ×2 (05:19→16:39)
[2019-02-20] MEDS: Nystatin Powder 15gm Bottle 1 APPLIC TOPICAL ×2 (05:20→16:39)
[2019-02-20] MEDS: Enoxaparin 40 MG/0.4 ML Syringe SC (05:21)
--- NOTE | 2019-02-20 10:46 | CASEMGMT ---
Social Work Plan of care meeting held today with pt and spouse in attendance. PT is receiving PT/OT and progressing with therapy. Pt does have [facility] and palliative care. Pt plans to return home with her spouse to their [facility] level home. Pt does have an ileostomy and will need to care for this at home. Tentative d/c for the end of next week. Will continue with treatment plan at this time. SHILA Garza
--- NOTE | 2019-02-20 11:29 | NURSING ---
In to reassess the ileostomy appliance. there are no signs of leaks noted. do not want to remove the appliance since the peristomal skin was denuded and appliance was just changed yesterday morning. would like to allow for the skin to heal. will check again this afternoon. Plan to change the appliance tomorrow to reassess the skin and try the new appliance.
--- NOTE | 2019-02-20 12:31 | PCM.CONS.P ---
History of Present Illness Date of Consult: 02/20/19 Reason for Consult: metastatic colon cancer Requesting physician: Dr. Horowitz Primary care physician: Zarina Rhodes - History of Present Illness The patient is a 73 year old Female seen in TCU per request with metastatic colon cancer. We received original referral on 01/30/19 and pt has been admitted to [facility] and readmitted directly to TCU after return to ER. Seen originally at [facility] and sent to [facility] with large abd mass and hx of fatigue and 30 lb wt loss over past year. Hx is well outlined in the record and appreciate notes and consults. She underwent laparotomy and debulking surgery at [place] with ileocolectomy and ileostomy as well b/l salpingectomy. Noted to have advanced tumor with mets to omentum, left ovary, and abd wall. Macroscopic tumor invasion was present. She was dc home from [place] and did ok for 1-2 weeks but then had steady decline in function and presented to ER here with MARJORIE, nausea, abd pain, anorexia and was mostly in bed. She had developed a pressure sore on her coccyx and had problems with her ostomy. REcently seen back in ER and admitted to TCU for rehab and therapies. She saw Dr. Horowitz originally on 01/30/19 and she was too ill for any active anticancer tx. Referrals were made to appropriate therapies but she declined functionally necessitating admit here. She was hydrated and her MARJORIE resolved. She has been doing PT and OT here and receiving nutritional suppliments and regularly seen by resource specialist teacher. Seems to be gaining a little strength here with potential dc plan for end of next week. She denies any pain. Admits to some intermittent nausea and considerable fatigue. She denies insomnia, dysuria, anxiety. Her stooling per the ostomy is improving and her coccyx wound is resolving and her ostomy is healing in much better the last 2 days. Has had some difficulty with managing her ostomy per staff. We discussed her findings and situation at length. Lives as home with her . No children. Wants to get home and gain strength and hopes to be able to receive chemo tx. Aware of her dx but somewhat unrealistic of her prognosis and extent of disease, care abilities and debility. Pleasant and cognitive. 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 Psychiatric History: Depression Home Medications: Ambulatory Orders Medication Instructions Recorded Acetaminophen [Tylenol Tablet] 650 mg PO Q6H PRN PRN tablet 02/13/19 Ensure Clear 120 ml PO 4X/DAY 02/16/19 Megestrol Acetate [Megace Udc] 200 mg PO TIDCM MDD ' 02/16/19 Metoclopramide [Reglan Solution] 5 mg PO TID 02/16/19 Allergies Penicillins Adverse Reaction (Intermediate, Verified 02/04/19 06:59) Rash ITCHY fluoxetine [From Prozac] Adverse Reaction (Verified 02/10/19 18:36) Other omeprazole [From Prilosec] Adverse Reaction (Verified 02/10/19 18:36) Other Maternal Family History: Family History (Last Updated 01/30/19 @ 09:52 by Tamra Beltran) Other No pertinent family history History Items: - - Denies known maternal medical history including cardiac history. Paternal Family History: Family History (Last Updated 01/30/19 @ 09:52 by Tamra Beltran) Other No pertinent family history History Items: - - Denies known paternal medical history including cardiac history. 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 Has listened to a passionist tiger machine operator for some time and received support from this. 52 years. Code Status: DNRCC-A Advanced Care Planning: Does not have a living will nor DPOAHC and is open to completing these. Would not want resuscitation nor CPR or ventilation and is agreeableto DNRCCA. is next of kin. Goals are to get stronger and get back home. Wants to have chemo tx for her cancer if able. Plans to see Dr. Horowitz after stay here. Primary care doctor is Dr. Rhodes. Review of Systems Constitutional: Reports: Anorexia, Weakness, Weight Change, Fatigue. Denies: Chills, Fever Eyes: Denies: Blurred vision, Pain, Vision Change HEENT: Reports: Difficulty Swallowing Cardiovascular: Denies: Chest Pain, Chest Pressure, Edema, Orthopnea, Syncope Respiratory: Denies: Cough, Shortness of Breath, Wheezing Gastrointestinal: Reports: Nausea, - - 30 pound wt loss prio to surgery over past year. Denies: Abdominal Pain, Melena, Vomiting Genitourinary: Denies: Dysuria, Frequency, Hematuria Gynecological: Denies: Breast symptoms, Vaginal bleeding, Vaginal discharge Musculoskeletal: Denies: Arm Pain, Joint stiffness, Joint swelling, Joint Tenderness Skin: Reports: Jaundice, - - healing coccyx wound which is small. Denies: Dryness, Lesions, Pruritis Neurological: Reports: Difficulty swallowing, Seizures, - - mild tremor to her hands. Denies: Balance problems, Blurred vision Psychiatric: Denies: Anxiety, Depression Endocrine: Denies: Change in Body Habitus, Polydipsia, Polyuria Hematologic/ Lymphatic: Denies: Adenopathy, Anemia, Purpura Physical Exam Palliative Performance Scale %: 70 General: Alert, Oriented x3, Cooperative, - - thin frail cachectic debility ? icteric HEENT: Atraumatic, PERRLA, EOMI, Normocephalic Oral: Moist Mucosa, No Gingival or Mucosal Lesions/ Ulcerations Neck: Supple, No JVD, No Nodes, Trachea Midline Lungs: Clear to auscultation, No rhonchi, No wheeze, No rales Cardiovascular: Regular rate, No murmurs, PMI Normal Abdomen: Bowel Sounds Present, Soft, Hyperactive Bowel Sounds, - - ilestomy rt sided with stool scars mildly tender ? masses liver ? palp Extremities: No clubbing, No cyanosis, No edema, Diminished Peripheral Pulses Skin: No rashes, Ulcer/ Wound, - - healing ostomy healing small coccyx wound Musculoskeletal: No Tenderness to Palpation of Joints or Extremities, Cachexia, Muscle Wasting Lymphatic: No Cervical, Supraclavicular, or Inguinal Adenopathy Neurological: Neuro grossly intact, - - fine tremor to hands at times Psych/Mental Status: Normal Affect, Appropriate, Alert and oriented to time, place, person, mood and affect - normal Objective: Vital Signs Temp Pulse Resp BP Pulse Ox 98.3 F 90 16 98/55 L 98 02/19/19 15:54 02/19/19 15:54 02/19/19 15:54 02/19/19 15:54 02/19/19 15:54 Oxygen Delivery Method Room Air Weight: 94 lb 2 oz Body Mass Index (BMI) 18.7 Intake and Output for Last 24 Hours 02/18/19 02/19/19 02/20/19 23:59 23:59 23:59 Intake Total 600 / 600 780 / 780 120 / 120 Output Total 450 / 450 575 / 575 Balance 150 / 150 205 / 205 120 / 120 Assessment/Plan All Active Problems (Last Reviewed 01/30/19 @ 09:08 by Tamra Beltran) Weakness (Acute) Appetite loss (Acute) MARJORIE (acute kidney injury) (Acute) Hyponatremia with decreased serum osmolality (Acute) Pt is 73 year old female with stage IV colon cancer. Now in TCU for rehab and potential strengthening. Originally seen by oncology with functional decline since her surgery and at that time not felt to be candidate for chemo with debility. Has since had further decline with episode of MARJORIE which has resolved with tx. Now here in TCu and involved in therapies and up and ambulating. Appetite has increased and is taking suppliments and working with ostomy nurse. Denies much pain but has some nausea and no emesis. Some evidence of liver dysfunction is noted as well. Oncology had originally felt she was not a tx candidate for palliative chemo tx. with debility and malnutrition. Seems to be gaining some strength here and eating better. Her coccyx wound is healing and her ostomy is improving in function and healing. I believe her performance status is improving as well modestly. Recommend continued care here and dc planning. Recommend she see oncology after her stay here for re eval and potential palliative chemo. Concern as to whether she would be candidate and potential benefit vrs burden of palliative tx's. REcommend she complete advance directives and will place order for DNRCCA is accordance with her wishes. DC planning here with FURNACE CARETAKER and discussed with FURNACE CARETAKER here. Concern for her ability to manage her ostomy and will defer to ostomy nurse. Agree with current meds and will add prn haldol for nausea and vomiting. Recommend close palliative care f/u and symptom mgmt and she is a candidate for hospice care if unable to receive chemo tx. Prognosis is likely poor and in terms of weeks to months depending on how she does, nutrition and debility. May need ECF if further decline. Pt is somewhat unrealistic about her dx and extent. Support and education given. Will hopefully get in touch with her to discuss as well. Will f/u closely.
--- NOTE | 2019-02-20 12:54 | CON.PCM_ITS ---
History of Present Illness Date of Consult: 02/20/19 Reason for Consult: metastatic colon cancer Requesting physician: Dr. Horowitz Primary care physician: Zarina Rhodes - History of Present Illness The patient is a 73 year old Female seen in TCU per request with metastatic colon cancer. We received original referral on 01/30/19 and pt has been admitted to [facility] and readmitted directly to TCU after return to ER. Seen or iginally at [facility] and sent to [facility] with large abd mass and hx of fatigue and 30 lb wt loss over past year. Hx is well outlined in the record and appreciate notes and consults. She underwent laparotomy and debulking surgery at [place] with ileocolectomy and ileostomy as well b/l salpingectomy. Noted to have advanced tumor with mets to omentum, left ovary, and abd wall. Macroscopic tumor invasion was present. She was dc home from [place] and did ok for 1-2 weeks but then had steady decline in function and presented to ER here with MARJORIE, nausea, abd pain, anorexia and was mostly in bed. She had developed a pressure sore on her coccyx and had problems with her ostomy. REcently seen back in ER and admitted to TCU for rehab and therapies. She saw Dr. Horowitz originally on 01/30/19 and she was too ill for any active anticancer tx. Referrals were made to appropriate therapies but she declined functionally necessitating admit here. She was hydrated and her MARJORIE resolved. She has been doing PT and OT here and receiving nutritional suppliments and regularly seen by wet mixer. Seems to be gaining a little strength here with potential dc plan for end of next week. She denies any pain. Admits to some intermittent nausea and considerable fatigue. She denies insomnia, dysuria, anxiety. Her stooling per the ostomy is improving and her coccyx wound is resolving and her ostomy is healing in much better the last 2 days. Has had some difficulty with managing her ostomy per staff. We discussed her findings and situation at length. Lives as home with her . No children. Wants to get home and gain strength and hopes to be able to receive chemo tx. Aware of her dx but somewhat unrealistic of her prognosis and extent of disease, care abilities and debility. Pleasant and cognitive. 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 Psychiatric History: Depression Home Medications: Ambulatory Orders Medication Instructions Recorded Acetaminophen [Tylenol Tablet] 650 mg PO Q6H PRN PRN tablet 02/13/19 Ensure Clear 120 ml PO 4X/DAY 02/16/19 Megestrol Acetate [Megace Udc] 200 mg PO TIDCM MDD ' 02/16/19 Metoclopramide [Reglan Solution] 5 mg PO TID 02/16/19 Allergies Penicillins Adverse Reaction (Intermediate, Verified 02/04/19 06:59) Rash ITCHY fluoxetine [From Prozac] Adverse Reaction (Verified 02/10/19 18:36) Other omeprazole [From Prilosec] Adverse Reaction (Verified 02/10/19 18:36) Other Maternal Family History: Family History (Last Updated 01/30/19 @ 09:52 by Tamra Beltran) Other No pertinent family history History Items: - - Denies known maternal medical history including cardiac history. Paternal Family History: Family History (Last Updated 01/30/19 @ 09:52 by Tamra Beltran) Other No pertinent family history History Items: - - Denies known paternal medical history including cardiac history. 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 Has listened to a passionist rubber mill operator for some time and received support from this. 52 years. Code Status: DNRCC-A Advanced Care Planning: Does not have a living will nor DPOAHC and is open to completing these. Would not want resuscitation nor CPR or ventilation and is agreeableto DNRCCA. is next of kin. Goals are to get stronger and get back home. Wants to have chemo tx for her cancer if able. Plans to see Dr. Horowitz after stay here. Primary care doctor is Dr. Rhodes. Review of Systems Constitutional: Reports: Anorexia, Weakness, Weight Change, Fatigue. Denies: Chills, Fever Eyes: Denies: Blurred vision, Pain, Vision Change HEENT: Reports: Difficulty Swallowing Cardiovascular: Denies: Chest Pain, Chest Pressure, Edema, Orthopnea, Syncope Respiratory: Denies: Cough, Shortness of Breath, Wheezing Gastrointestinal: Reports: Nausea, - - 30 pound wt loss prio to surgery over past year. Denies: Abdominal Pain, Melena, Vomiting Genitourinary: Denies: Dysuria, Frequency, Hematuria Gynecological: Denies: Breast symptoms, Vaginal bleeding, Vaginal discharge Musculoskeletal: Denies: Arm Pain, Joint stiffness, Joint swelling, Joint Tenderness Skin: Reports: Jaundice, - - healing coccyx wound which is small. Denies: Dryness, Lesions, Pruritis Neurological: Reports: Difficulty swallowing, Seizures, - - mild tremor to her hands. Denies: Balance problems, Blurred vision Psychiatric: Denies: Anxiety, Depression Endocrine: Denies: Change in Body Habitus, Polydipsia, Polyuria Hematologic/ Lymphatic: Denies: Adenopathy, Anemia, Purpura Physical Exam Palliative Performance Scale %: 70 General: Alert, Oriented x3, Cooperative, - - thin frail cachectic debility ? icteric HEENT: Atraumatic, PERRLA, EOMI, Normocephalic Oral: Moist Mucosa, No Gingival or Mucosal Lesions/ Ulcerations Neck: Supple, No JVD, No Nodes, Trachea Midline Lungs: Clear to auscultation, No rhonchi, No wheeze, No rales Cardiovascular: Regular rate, No murmurs, PMI Normal Abdomen: Bowel Sounds Present, Soft, Hyperactive Bowel Sounds, - - ilestomy rt sided with stool scars mildly tender ? masses liver ? palp Extremities: No clubbing, No cyanosis, No edema, Diminished Peripheral Pulses Skin: No rashes, Ulcer/ Wound, - - healing ostomy healing small coccyx wound Musculoskeletal: No Tenderness to Palpation of Joints or Extremities, Cachexia, Muscle Wasting Lymphatic: No Cervical, Supraclavicular, or Inguinal Adenopathy Neurological: Neuro grossly intact, - - fine tremor to hands at times Psych/Mental Status: Normal Affect, Appropriate, Alert and oriented to time, place, person, mood and affect - normal Objective: Vital Signs Temp Pulse Resp BP Pulse Ox 98.3 F 90 16 98/55 L 98 02/19/19 15:54 02/19/19 15:54 02/19/19 15:54 02/19/19 15:54 02/19/19 15:54 Oxygen Delivery Method Room Air Weight: 94 lb 2 oz Body Mass Index (BMI) 18.7 Intake and Output for Last 24 Hours 02/18/19 02/19/19 02/20/19 23:59 23:59 23:59 Intake Total 600 / 600 780 / 780 120 / 120 Output Total 450 / 450 575 / 575 Balance 150 / 150 205 / 205 120 / 120 Assessment/Plan All Active Problems (Last Reviewed 01/30/19 @ 09:08 by Tamra Beltran) Weakness (Acute) Appetite loss (Acute) MARJORIE (acute kidney injury) (Acute) Hyponatremia with decreased serum osmolality (Acute) Pt is 73 year old female with stage IV colon cancer. Now in TCU for rehab and potential strengthening. Originally seen by oncology with functional decline since her surgery and at that time not felt to be candidate for chemo with debility. Has since had further decline with episode of MARJORIE which has resolved with tx. Now here in TCu and involved in therapies and up and ambulating. Appetite has increased and is taking suppliments and working with ostomy nurse. Denies much pain but has some nausea and no emesis. Some evidence of liver dysfunction is noted as well. Oncology had originally felt she was not a tx candidate for palliative chemo tx. with debility and malnutrition. Seems to be gaining some strength here and eating better. Her coccyx wound is healing and her ostomy is improving in function and healing. I believe her performance status is improving as well modestly. Recommend continued care here and dc planning. Recommend she see oncology after her stay here for re eval and potential palliative chemo. Concern as to whether she would be candidate and potential benefit vrs burden of palliative tx's. REcommend she complete advance directives and will place order for DNRCCA is accordance with her wishes. DC planning here with PATENT PROSECUTION ATTORNEY and discussed with PATENT PROSECUTION ATTORNEY here. Concern for her ability to manage her ostomy and will defer to ostomy nurse. Agree with current meds and will add prn haldol for nausea and vomiting. Recommend close palliative care f/u and symptom mgmt and she is a candidate for hospice care if unable to receive chemo tx. Prognosis is likely poor and in terms of weeks to months depending on how she does, nutrition and debility. May need ECF if further decline. Pt is somewhat unrealistic about her dx and extent. Support and education given. Will hopefully get in touch with her to discuss as well. Will f/u closely.
[2019-02-20 14:57] VITALS: BP 105/66; PULSE 99; RESP 18; TEMP 37.1; O2SAT 99
--- NOTE | 2019-02-20 15:22 | NURSING ---
Ostomy appliance remains intact. plan to change appliance in am.
--- NOTE | 2019-02-20 18:53 | NURSING ---
ostomy appliance started leaking while pt eating dinner. 100cc noted in bag. new ostomy appliance applied.
[2019-02-21] MEDS: Cholestyramine/Sucrose 4 GM/PACKET PO (04:15)
[2019-02-21] MEDS: Enoxaparin 40 MG/0.4 ML Syringe SC (04:16)
[2019-02-21] MEDS: Menthol/Lanolin/Calamine/Znox 113 GM Tube 1 APPLIC TOPICAL ×2 (04:16→18:07)
[2019-02-21] MEDS: Nystatin Powder 15gm Bottle 1 APPLIC TOPICAL (04:17)
--- NOTE | 2019-02-21 08:27 | NURSING ---
Ileostomy appliance had been changed twice this am according to patient d/t leaks. states the first time, the bag was not closed at the end so stool leaked out the bottom. in room to see patient and patient is up walking with no clothes on except her pants. Dr Gordon in with patient at this time as well. the new ConvaTec appliances also leaked, but there was a lot of powder under the appliance when it was removed. this can prevent a good seal. only need a small amount of powder and should dust off any excess powder. peristomal skin is still denuded, but slightly improved. removed the excess stoma paste as well. washed the peristomal skin with soap and water. pat dry. applied a very small amount of stoma powder to the denuded skin. applied a 1 piece convex Coloplast appliance with a small amount of stoma paste. held hand over the appliance for approx 5 min to assist in sealing to skin and along the abdominal crease. this appliance seems to fit well. will monitor closely for leaks. pt denies further needs at this time. present at bedside. new pants and shirt on at this time after assisting patient in getting cleaned up.
--- NOTE | 2019-02-21 09:47 | RAD_ITS ---
STUDY: X-RAY CHEST REASON FOR EXAM: Female, 73 years old. Lower lateral anterior rib pain. TECHNIQUE: PA and lateral views of the chest. COMPARISON: Comparison is made with prior examination dated February 10, 2019. FINDINGS: Hyperinflation. Scattered calcified granulomas. There is no demonstrated pleural abnormality. Normal size heart. Normal mediastinum and booker. Normal visualized pulmonary arteries. Normal visualized aortic arch and descending thoracic aorta. There are diffuse degenerative changes of the visualized thoracic spine. Minimal levoscoliosis. Normal visualized ribs, clavicles, and shoulders. There is no demonstrated abnormality of the visualized soft tissue structures of the upper abdomen. RAD/Chest PA and Lateral IMPRESSION: Hyperinflation. Electronically Signed: Bennett Alvarado, at 13:03 EDT , Service support ,
--- NOTE | 2019-02-21 13:33 | NURSING ---
In to reassess the ileostomy appliance. appliance is intact at this time. no signs of leak. when patient does sit in a chair, patient's ribs do fold the top of the appliance slightly. stoma at times retracts as well. stool is a thin applesauce consistency at this time. goal is to keep appliance in place for 3 days at a time. will need changed as soon as there is any sign of a leak though d/t the peristomal skin. will continue to monitor.
[2019-02-21 15:38] VITALS: BP 132/84; PULSE 92; RESP 18; TEMP 36.4; O2SAT 98
[2019-02-22] MEDS: Cholestyramine/Sucrose 4 GM/PACKET PO (04:53)
[2019-02-22] MEDS: Menthol/Lanolin/Calamine/Znox 113 GM Tube 1 APPLIC TOPICAL ×2 (04:59→16:53)
--- NOTE | 2019-02-22 09:40 | NURSING ---
Ileostomy appliance remains in place. no sign of leak at this time. hoping to get 2-3 days without needing appliance changes so the peristomal skin can heal. will switch patient to current appliance for home if less leaks are noted.
--- NOTE | 2019-02-22 11:57 | MDS.RN ---
Pain interview for zaki 02/23/19 completed.
--- NOTE | 2019-02-22 13:29 | CASEMGMT ---
BIMS and PHQ9 interviews completed on this date for MDS assessment. SHILA Garza
[2019-02-22 16:00] VITALS: BP 105/65; PULSE 113; RESP 16; TEMP 37.2; O2SAT 93
[2019-02-22] MEDS: Nystatin Powder 15gm Bottle 1 APPLIC TOPICAL (16:53)
[2019-02-23] MEDS: Menthol/Lanolin/Calamine/Znox 113 GM Tube 1 APPLIC TOPICAL ×2 (06:10→16:48)
[2019-02-23] MEDS: Nystatin Powder 15gm Bottle 1 APPLIC TOPICAL (06:10)
[2019-02-23] MEDS: Cholestyramine/Sucrose 4 GM/PACKET PO (06:11)
[2019-02-23 16:00] VITALS: BP 104/55; PULSE 81; RESP 18; TEMP 36.9; O2SAT 97
[2019-02-24] MEDS: Menthol/Lanolin/Calamine/Znox 113 GM Tube 1 APPLIC TOPICAL ×2 (05:51→16:56)
[2019-02-24] MEDS: Nystatin Powder 15gm Bottle 1 APPLIC TOPICAL ×2 (05:51→16:55)
[2019-02-24] MEDS: Cholestyramine/Sucrose 4 GM/PACKET PO (05:52)
[2019-02-24 06:21] LABS: Absolute Lymphocyte Count 1.69 X10^3/ul (0.83-4.51); Absolute Neutrophil Count 3.7 X10^3/uL (2.0-7.7); Basophil# 0.01 X10^3/uL; Basophil% 0.2 % (0-1); Eosinophil# 0.16 X10^3/uL; Eosinophils% 2.6 % (0-5); Hematocrit 40.6 % (37-47); Hemoglobin 14.1 g/dl (12.0-15.0); Lymphocyte # 1.69 X10^3/ul (4.0); Lymphocyte % 27.7 % (19-41); Mean Corp Hgb Conc 34.7 g/gl (32-36); Mean Corpuscular Hgb 29.2 pg (27.0-32.0); Mean Corpuscular Volume 84.1 fL (81-99); Mean Platelet Vol. 9.8 fl (6.2-12.0); Monocyte# 0.56 X10^3/uL; Monocyte% 9.2 % (0-10); Neutrophil # 3.67 X10^3/uL (2.7-7.7); Neutrophil % 60.1 % (47-70); Platelet Count 373 K/mm3 (150-450); RBC Distribution Width CV 19.1 % (11.6-14.6); RBC Distribution Width SD 58.5 fl (35.1-43.9); Red Blood Count 4.83 M/mm3 (4.2-5.4); White Blood Count 6.1 K/mm3 (4.4-11.0)
[2019-02-24 06:26] LABS: POSITIVE COUNT NO; POSITIVE DIFFERENTIAL NO; POSITIVE MORPHOLOGY NO
[2019-02-24 06:36] LABS: Anion Gap 12 (5-15); BUN 59 mg/dL (7-18); BUN/Creat Ratio 53.2 RATIO (10-20); Calcium,Total 8.8 mg/dL (8.5-10.1); Chloride 100 mmol/L (98-107); Creatinine, Serum 1.11 mg/dL (0.55-1.02); EST Glomerular Filtration Rate 52 mL/min (>60); Est Glom Filt Rate - Afr Amer 62 mL/min (>60); Estimated Creatinine Clearance 31.33 ml/min; Glucose 122 mg/dL (74-106); Potassium 4.6 mmol/L (3.5-5.1); Sodium Level 128 mmol/L (136-145)
--- NOTE | 2019-02-24 09:25 | NURSING ---
rounding on pt, this nurse checked bag, 1/2 full of pasty/liquidy stool. pt emptying own ileostomy bag this AM. offered to assist pt declined. at bedside. explained that pt needed to drink more fluids d/t elevated BUN. Pt verbalized understanding, fresh ice water given. noted that pt only ate 2 bites of lu on brkfst tray & drank no fluids.
[2019-02-24] MEDS: Tuberculin,Purif.prot.deriv. 50 TU/ML Vial 5 ML ID (10:33)
[2019-02-24 15:37] VITALS: BP 105/64; PULSE 78; RESP 18; TEMP 36.3; O2SAT 110
[2019-02-24] MEDS: Mag Hydrox/Al Hydrox/Simeth 30 ML UDC 15 ML PO (15:56)
[2019-02-24 20:47] LABS: Osmolality, Serum 287 mOsm/KG (280-301)
[2019-02-25] MEDS: Mag Hydrox/Al Hydrox/Simeth 30 ML UDC 15 ML PO ×2 (00:57→15:35)
[2019-02-25 01:36] LABS: Osmolality, Urine 626 mOsm/KG
[2019-02-25 01:50] LABS: Urine Sodium < 5 mmol/L (Not Establ.)
[2019-02-25] MEDS: Cholestyramine/Sucrose 4 GM/PACKET PO (05:07)
[2019-02-25] MEDS: Nystatin Powder 15gm Bottle 1 APPLIC TOPICAL (05:09)
[2019-02-25] MEDS: Menthol/Lanolin/Calamine/Znox 113 GM Tube 1 APPLIC TOPICAL (05:09)
[2019-02-25 15:43] VITALS: BP 101/45; PULSE 106; RESP 18; TEMP 37.1; O2SAT 97
--- NOTE | 2019-02-25 23:02 | NURSING ---
PT out in hallway without any clothing looking for , ileostomy bag and Mediplex off. PT helped back into room cleaned up new ileostomy bag and Mediplex applied. PT reoriented to time and that has not been here on this shift. Clean gown placed on pt and room cleaned up. Pt denies further needs at this time, will continue to monitor.
[2019-02-26] MEDS: Cholestyramine/Sucrose 4 GM/PACKET PO (05:58)
[2019-02-26 06:25] LABS: BUN 83 mg/dL (7-18); Creatinine, Serum 1.54 mg/dL (0.55-1.02); Estimated Creatinine Clearance 22.58 ml/min; Glucose 199 mg/dL (74-106)
[2019-02-26 06:26] LABS: Anion Gap 12 (5-15); BUN/Creat Ratio 53.9 RATIO (10-20); Calcium,Total 9.9 mg/dL (8.5-10.1); Chloride 88 mmol/L (98-107); EST Glomerular Filtration Rate 35 mL/min (>60); Est Glom Filt Rate - Afr Amer 43 mL/min (>60); Potassium 4.1 mmol/L (3.5-5.1); Sodium Level 128 mmol/L (136-145)
--- NOTE | 2019-02-26 14:18 | NURSING ---
Ileostomy appliance had been changed this am per shift supervisor film processing nurse. pt was out in halls naked. appliance is currently intact. no signs of leaks noted. the previous appliance had stayed in place for 3 days. pt will most likely be discharged with this appliance at home. will talk with home health to see if they need the appliance number or a script for the new appliances. pt appears more forgetful today.
[2019-02-26 15:17] VITALS: BP 96/69; PULSE 62; RESP 16; TEMP 37.1; O2SAT 95
[2019-02-27] MEDS: Cholestyramine/Sucrose 4 GM/PACKET PO (06:02)
--- NOTE | 2019-02-27 09:17 | NURSING ---
ostomy appliance changed d/t old one leaking out rt side of abdomen in crease of skin. pt resting in bed, call light in reach. No mess to clean up pt had caught leaking before mess. Pt so proud of that.
--- NOTE | 2019-02-27 10:21 | MDS.RN ---
Information for the mds was obtained from review of the clinical record, interview of resident, staff, and direct observation of resident's care.
--- NOTE | 2019-02-27 11:57 | NURSING ---
THOMAS Carlisle stated that the ileostomy appliance had started leaking this am. appliance was changed at that time. still feel this type of appliance has worked the best for the patient. will talk with home health prior to patient going home and have them order the [employer] 1 piece convex appliance #[id number]. pt does NOT need the Sarwat rings and can just use some stoma paste if desired.
--- NOTE | 2019-02-27 14:51 | CASEMGMT ---
Addendum entered by Saima Valero 02/27/19 15:43: [facility] is able to accept pt for home health Nursing. Pt notified and agreeable to this. Pt also notified that Palliative Medicine will be following up with pt within the next week per Dr. Mejía. SHILA Garza Original Note: Addendum entered by Saima Valero 02/27/19 15:26: [facility] is unable to accept pt. Referral made to [facility] and they willl review information and notify SW if they can accept. SHILA Garza Original Note: Social Work Pt expressing desire to return home tomorrow 02/28/19. Team informed and agreeable to d/c. No further therapy needed at this time. Pt has needed DME. Pt will need home health RN for ileostomy care. SW spoke with Gracy at [facility] and they are not able to accept pt back as pt care needs are greater than they can provide. Pt notified of this. Phone call to [facility] and referral made. They will check with staffing availability and notify SW. With pt permission, phone call to pt and he is aware of d/c planned for tomorrow and agreeable. [facility] notified of pt d/c tomorrow. Spouse stating he will be here to transport pt home. Will await return call from [facility]. Plan: Home with spouse. [facility] Health [facility] and palliative care services. SHILA Garza
[2019-02-27 16:00] VITALS: BP 107/56; PULSE 99; RESP 18; TEMP 36.6; O2SAT 99
--- NOTE | 2019-02-27 20:16 | DCINST_ITS ---
- Discharge Diagnoses Current Active Problems: Current Active and Chronic Problems (Last Reviewed 01/30/19 @ 09:08 by Tamra Beltran) Weakness (Acute) Metastatic colon cancer in female (Chronic) Appetite loss (Acute) Depression (Chronic) You will use the following diet at home:: No restrictions, Regular Your food should be the consistency of: Regular Your liquids should be the consistency of: Regular/Thin Discharge Activity: Return to Normal Activity, May Shower, Use Walker Weight Bearing Status: Weight bearing as tolerated Call your doctor if you observe: Fever of 101 or Higher, Inability to urinate, Inability to have a bowel movement, Shortness of breath, Chest pain, Uncontrolled pain Allergies/Adverse Reactions: Allergies Penicillins Adverse Reaction (Intermediate, Verified 02/04/19 06:59) Rash ITCHY fluoxetine [From Prozac] Adverse Reaction (Verified 02/10/19 18:36) Other omeprazole [From Prilosec] Adverse Reaction (Verified 02/10/19 18:36) Other Medications to take at Discharge Acetaminophen [Tylenol] 1,000 mg PO Q6H PRN PRN tablet 02/27/19 Menthol/Lanolin/Calamine/Znox [Calmoseptine Ointment] 1 applic TOPICAL BID PRN PRN tube 02/27/19 Mineral Oil/Petrolatum,White [Eucerin] 1 applic TOPICAL QHS jar 02/27/19 Nystatin Powder [Mycostatin Powder] 1 applic TOPICAL BID PRN PRN bottle 02/27/19 Primary Care Physician: Zarina Rhodes [Primary Care Provider] - Please follow up with your Primary Care Physician in: 1 week. Test Results: Test results from this visit will be discussed in further detail at your follow- up appointment, if applicable. Please Follow Up With: Dr. Rhodes Proposed Discharge Date: 02/28/19
--- NOTE | 2019-02-27 20:16 | PCM.DC.SUM ---
Discharge Date and Diagnosis - Problem List Patient Problems: Active and Suspected Problems (Last Reviewed 01/30/19 @ 09:08 by Tamra Beltran) Weakness (Acute) Appetite loss (Acute) Date of Admission: 02/20/19 Date of Discharge: 02/28/19 - Primary Discharge Diagnosis Active and Suspected Problems (Last Reviewed 01/30/19 @ 09:08 by Tamra Beltran) Weakness (Acute) Appetite loss (Acute) - Secondary Discharge Diagnosis Chronic Problems (Last Reviewed 01/30/19 @ 09:08 by Tamra Beltran) Metastatic colon cancer in female (Chronic) Depression (Chronic) Liver lesion (Chronic) Weight loss (Chronic) Pressure sore (Chronic) Jaundice (Chronic) Colon cancer (Chronic) Stage IV 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 Electronically Signed: Bennett Alvarado, at 13:03 EDT , Service support , Labs (Last 48 Hours) 02/26/19 05:30 Sodium 128 L Potassium 4.1 Chloride 88 L Carbon Dioxide 28.0 Anion Gap 12 BUN 83 H Creatinine 1.54 H Estim Creat Clear Calc 22.58 Est GFR (MDRD) Af Amer 43 L Est GFR (MDRD) Non-Af 35 L BUN/Creatinine Ratio 53.9 H Glucose 199 H Calcium 9.9 Consultations 02/17/19 04:26 Consult: Onc/Wound/industrial chemicals supervisor Routine Comment: Reason for Consult:: ileostomy, irritated saray skin Operations: None Procedures: None Summary of Care Provided: The patient is a 73 year old Female with below past medical history significant for stage 4 colon cancer, admitted to TCU with debility, here for rehabilitation, strengthening, prior to discharge home with spouse, possible chemotherapy in future with Dr. Horowitz. Reason for admission was leaking Colostomy, inability to manage colostomy at home. Ostomy nurse consulted, and with adjustment of appliances, adhesives, colostomy was able to be managed. Discharge home with spouse, Home Health Services for Long Term, palliative care services. Patient Problems: Active and Suspected Problems (Last Reviewed 01/30/19 @ 09:08 by Tamra Beltran) Weakness (Acute) Appetite loss (Acute) - Physical Exam Vital Signs Temp Pulse Resp BP Pulse Ox 97.9 F 99 18 107/56 L 99 02/27/19 16:00 02/27/19 16:00 02/27/19 16:00 02/27/19 16:00 02/27/19 16:00 Oxygen Delivery Method Room Air Weight: 40.823 kg Body Mass Index (BMI) 18.7 Intake and Output for Last 24 Hours 02/25/19 02/26/19 02/27/19 23:59 23:59 23:59 Intake Total 240 / 240 0 / 0 320 / 320 Balance 240 / 240 0 / 0 320 / 320 Discharge Diet: No Restrictions Discharge Activity: Return to Normal Activity, May Shower, Use Walker Weight Bearing Status: Weight bearing as tolerated Call your doctor if you observe: Fever of 101 or Higher, Inability to urinate, Inability to have a bowel movement, Shortness of breath, Chest pain, Uncontrolled pain Home Medications: Medications to take at Discharge Acetaminophen [Tylenol] 1,000 mg PO Q6H PRN PRN tablet 02/27/19 Menthol/Lanolin/Calamine/Znox [Calmoseptine Ointment] 1 applic TOPICAL BID PRN PRN tube 02/27/19 Mineral Oil/Petrolatum,White [Eucerin] 1 applic TOPICAL QHS jar 02/27/19 Nystatin Powder [Mycostatin Powder] 1 applic TOPICAL BID PRN PRN bottle 02/27/19 Primary Care Physician: Zarina Rhodes [Primary Care Provider] - Please follow up with your Primary Care Physician in: 1 week. Please Follow Up With: Dr. Rhodes Disposition: Home with Home Health Minutes spent on discharge:: 35 Patient Condition:: Stable Medical Necessity - Tobacco Use Smoking Status: Never smoker Tobacco Use: Non-smoker Meaningful Use Info Meaningful Use Diagnoses (Choose all that apply): None applicable
--- NOTE | 2019-02-27 20:19 | DS.PCM_ITS ---
Discharge Date and Diagnosis - Problem List Patient Problems: Active and Suspected Problems (Last Reviewed 01/30/19 @ 09:08 by Tamra Beltran) Weakness (Acute) Appetite loss (Acute) Date of Admission: 02/20/19 Date of Discharge: 02/28/19 - Primary Discharge Diagnosis Active and Suspected Problems (Last Reviewed 01/30/19 @ 09:08 by Tamra Beltran) Weakness (Acute) Appetite loss (Acute) - Secondary Discharge Diagnosis Chronic Problems (Last Reviewed 01/30/19 @ 09:08 by Tamra Beltran) Metastatic colon cancer in female (Chronic) Depression (Chronic) Liver lesion (Chronic) Weight loss (Chronic) Pressure sore (Chronic) Jaundice (Chronic) Colon cancer (Chronic) Stage IV 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 Electronically Signed: Bennett Alvarado, at 13:03 EDT , Service support , Labs (Last 48 Hours) 02/26/19 05:30 Sodium 128 L Potassium 4.1 Chloride 88 L Carbon Dioxide 28.0 Anion Gap 12 BUN 83 H Creatinine 1.54 H Estim Creat Clear Calc 22.58 Est GFR (MDRD) Af Amer 43 L Est GFR (MDRD) Non-Af 35 L BUN/Creatinine Ratio 53.9 H Glucose 199 H Calcium 9.9 Consultations 02/17/19 04:26 Consult: Onc/Wound/director of community life Routine Comment: Reason for Consult:: ileostomy, irritated saray skin Operations: None Procedures: None Summary of Care Provided: The patient is a 73 year old Female with below past medical history significant for stage 4 colon cancer, admitted to TCU with debility, here for rehabilitation, strengthening, prior to discharge home with spouse, possible chemotherapy in future with Dr. Horowitz. Reason for admission was leaking Colostomy, inability to manage colostomy at home. Ostomy nurse consulted, and with adjustment of appliances, adhesives, colostomy was able to be managed. Discharge home with spouse, [facility], palliative care services. Patient Problems: Active and Suspected Problems (Last Reviewed 01/30/19 @ 09:08 by Tamra Beltran) Weakness (Acute) Appetite loss (Acute) - Physical Exam Vital Signs Temp Pulse Resp BP Pulse Ox 97.9 F 99 18 107/56 L 99 02/27/19 16:00 02/27/19 16:00 02/27/19 16:00 02/27/19 16:00 02/27/19 16:00 Oxygen Delivery Method Room Air Weight: 40.823 kg Body Mass Index (BMI) 18.7 Intake and Output for Last 24 Hours 02/25/19 02/26/19 02/27/19 23:59 23:59 23:59 Intake Total 240 / 240 0 / 0 320 / 320 Balance 240 / 240 0 / 0 320 / 320 Discharge Diet: No Restrictions Discharge Activity: Return to Normal Activity, May Shower, Use Walker Weight Bearing Status: Weight bearing as tolerated Call your doctor if you observe: Fever of 101 or Higher, Inability to urinate, Inability to have a bowel movement, Shortness of breath, Chest pain, Uncontrolled pain Home Medications: Medications to take at Discharge Acetaminophen [Tylenol] 1,000 mg PO Q6H PRN PRN tablet 02/27/19 Menthol/Lanolin/Calamine/Znox [Calmoseptine Ointment] 1 applic TOPICAL BID PRN PRN tube 02/27/19 Mineral Oil/Petrolatum,White [Eucerin] 1 applic TOPICAL QHS jar 02/27/19 Nystatin Powder [Mycostatin Powder] 1 applic TOPICAL BID PRN PRN bottle 02/27/19 Primary Care Physician: Zarina Rhodes [Primary Care Provider] - Please follow up with your Primary Care Physician in: 1 week. Please Follow Up With: Dr. Rhodes Disposition: Home with Home Health Minutes spent on discharge:: 35 Patient Condition:: Stable Medical Necessity - Tobacco Use Smoking Status: Never smoker Tobacco Use: Non-smoker Meaningful Use Info Meaningful Use Diagnoses (Choose all that apply): None applicable
--- NOTE | 2019-02-27 20:19 | PCM.PN.HH ---
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
[2019-02-28] VITALS (7 sets, daily range): BP systolic 88–153; BP diastolic 55–116; PULSE 90–109; RESP 18; TEMP 36.4–37.2; O2SAT 97–100
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
[2019-02-28] MEDS: Cholestyramine/Sucrose 4 GM/PACKET PO (06:48)
--- NOTE | 2019-02-28 08:04 | NURSING ---
0700 Pt requesting to leave. RN reported to pt she is unable to leave until spouse/individual are present to receive discharge instructions. Pt reported to RN spouse is outside to door waiting for pt. Spouse described vehicle to RN, RN unable to find vehicle outside hospital doors. Pt agreeable to wait until spouse is present to discharge.
--- NOTE | 2019-02-28 08:16 | NURSING ---
0753 DIRECTOR OF INSTITUTIONAL RESEARCH called for nurse to room 21. Pt found on back with head up against folding chair. Pt reported to staff she was reaching for glasses on floor when she fell. Abrasion, small X2 noted to the back of head. Pt c/o head with dull ache 2/10. Pt wearing tennis shoes. Pt ad nilam per therapy in room. AOx3. Vitals obtained. PERRLA. hand grasps equal. Dr Gordon aware, continue to monitor pt. VM left on pt's home for spouse to return call to TCU. Will continue to monitor and asses pt.
--- NOTE | 2019-02-28 10:20 | CASEMGMT ---
Social Work D/C instructions and orders faxed to [facility] for [facility] SHILA Prieto
== END 2019-02-28 10:00 | disposition home health service (06) | DRG 948 ==
PROVIDERS: Admitting Provider Family Medicine Geriatric Medicine; Family Provider Family Medicine; PCP Family Medicine; Visit Provider Family Medicine Geriatric Medicine
DX: R53.81 Other malaise (principal); C18.9 Malignant neoplasm of colon, unspecified; C78.6 Secondary malignant neoplasm of retroperitoneum and peritoneum; C79.60 Secondary malignant neoplasm of unspecified ovary; Z68.1 Body mass index [BMI] 19.9 or less, adult; E44.0 Moderate protein-calorie malnutrition; K58.9 Irritable bowel syndrome, unspecified; Z93.2 Ileostomy status; F32.9 Major depressive disorder, single episode, unspecified; L89.152 Pressure ulcer of sacral region, stage 2
CPT/HCPCS: 36415; 71046; 80048; 83930; 83935; 84300; 85025; 97110; 97116; 97161; 97165; 97530; 97535; 97802